=== PATIENT | male | born 1950 | race American Indian/Alaskan Native ===

== ENCOUNTER 2018-01-20 10:04 | Inpatient (IN) | payer MEDICARE ==
[2018-01-20 12:18] VITALS: BMI 33.6
--- NOTE | 2018-01-20 14:30 | CP.PCM.HP ---
History of Present Illness - History of Present Illness History of Present Illness: 67 year old male with past medical history of cervical degenerative disc disease , CAD s/p stent, anxiety, prostate cancer s/p tomotherapy (2006), uncontrolled hypertension, diabetes, was evaluated at [facility] for worsening progressive, right upper extremity weakness, bilateral upper extremity parathesias and gait imbalance.Cervical MRI (01/09) showed severe spinal stenosis and bilateral foraminal stenosis. Neurology and neurosugery were consulted and he underwent surgical decompression with discectomy with fusion C4, C5, C6.His numbness of hands improved, and strength of LE improved, and he is transferred now to acute rehab for continuation of physical therapy.Upon transfer feeling anxious , complains of pain to left shoulder and BP found to be elevated 180/101 with HR 77 with no chest pain, no SOB, no palpitatiosn, no MURRELL , dizziness blurry vision , nausea or vomiting. 12 lead EKG showed no acute St-T wave changes BIOCHEMIST was called for uncontrolled BP and hydralazine 20 mg IV push and labetalol 10 mg IV were given with end of BIOCHEMIST BP 153/87 Patient agrees to stay for BP in rehab Allergies: NKDA PMH: cervical degenerative disc disease, CAD s/p stent, anxiety, prostate cancer s/p tomotherapy (2006), uncontrolled hypertension, diabetes Medications; see med rec PSH: Tomotherapy (2006), multiple orthopedic surgeries to right knee (1969), s/ p discectomy and fusion C4 C5 C6 Family History: Mother- from CVA at age 83; Father- from black lung disease at age 52 Social History: Former smoker (approximately 1 year pack smoking history and quit just last week ); Previous alcohol abuse prior to 1989; Denies illicit drug abuse; 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 Bailey Present on Admission - Present on Admission Any Indicators Present on Admission: No Review of Systems - Review of Systems All systems: reviewed and no additional remarkable complaints except Past Patient History - Infectious Disease Hx of Infectious Diseases: None - Tetanus Immunizations Tetanus Immunization: Unknown - Past Medical History & Family History Past Medical History?: Yes - Past Social History Smoking Status: Light Smoker < 10 Cigarettes Daily Chewing Tobacco Use: No Cigar Use: No Alcohol: Social Drugs: Denies Home Situation {Lives}: With Family Domestic Violence: Negative - CARDIAC Hx Hypertension: Yes - PULMONARY Hx Respiratory Disorders: No - NEUROLOGICAL Hx Neurological Disorder: No Hx Paralysis: No - HEENT Hx HEENT Problems: No - RENAL Hx Chronic Kidney Disease: No - ENDOCRINE/METABOLIC Hx Diabetes Mellitus Type 2: Yes - HEMATOLOGICAL/ONCOLOGICAL Hx Blood Transfusions: No Hx Blood Transfusion Reaction: No - INTEGUMENTARY Hx Dermatological Problems: No - MUSCULOSKELETAL/RHEUMATOLOGICAL Hx Musculoskeletal Disorders: Yes - GENITOURINARY/GYNECOLOGICAL Hx Prostate Cancer: Yes - PSYCHIATRIC Hx Anxiety: Yes Hx Substance Use: No - SURGICAL HISTORY Hx Coronary Stent: Yes Hx Orthopedic Surgery: Yes - ANESTHESIA Hx Anesthesia Reactions: No Hx Malignant Hyperthermia: No Meds Allergies/Adverse Reactions: Allergies Allergy/AdvReac Type Severity Reaction Status Date / Time No Known Allergies Allergy Verified 01/20/18 11:46 Physical Exam - Constitutional Appears: Non-toxic Additional comments: anxious - Head Exam Head Exam: ATRAUMATIC, NORMAL INSPECTION, NORMOCEPHALIC - Eye Exam Eye Exam: EOMI, PERRL Additional comments: soft collar in place - ENT Exam ENT Exam: Mucous Membranes Moist, Normal Exam - Neck Exam Neck exam: Positive for: Full Rom, Normal Inspection - Respiratory Exam Respiratory Exam: Clear to Auscultation Bilateral, NORMAL BREATHING PATTERN. absent: Rales, Rhonchi, Wheezes - Cardiovascular Exam Cardiovascular Exam: REGULAR RHYTHM, RRR, +S1, +S2. absent: JVD - GI/Abdominal Exam GI & Abdominal Exam: Normal Bowel Sounds, Soft. absent: Distended, Guarding, Rebound, Tenderness - Rectal Exam Rectal Exam: Deferred - Extremities Exam Extremities exam: Positive for: normal capillary refill, normal inspection, pedal pulses present. Negative for: calf tenderness, pedal edema - Back Exam Back exam: NORMAL INSPECTION - Neurological Exam Neurological exam: Alert, CN II-XII Intact, Oriented x3, Reflexes Normal - Psychiatric Exam Psychiatric exam: Anxious, Normal Affect - Skin Skin Exam: Dry, Normal Color, Warm Assessment & Plan - Assessment and Plan (Free Text) Assessment: 67 year old male with past medical history of cervical degenerative disc disease , CAD s/p stent, anxiety, prostate cancer s/p tomotherapy (2006), uncontrolled hypertension, diabetes, was evaluated at [facility] for worsening progressive, right upper extremity weakness, bilateral upper extremity parathesias and gait imbalance.Cervical MRI (01/09) showed severe spinal stenosis and bilateral foraminal stenosis. Neurology and neurosugery were consulted and he underwent surgical decompression with discectomy with fusion C4, C5, C6 Now transferred to acute rehab for PT. 1. Cervical Radiculopathy with associated RUE Weakness due to cervical stenosis s/p discectomy with fusion C4,5,6 (01/15 ) Will admit to acute rehab for PT/OT physiatry consult with Dr. Morales pain management . Call pain anesthesia consult 2. Uncontrolled BP tight BP control in setting of aneurysms :7 x 6.1mm fusioform aneursym at the basilar tip. 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 CAD s/p PTCA Continue Lipitor aspirin on hold for surgery Heart Healthy Diet 6. Chronic NIDDM2, controlled, A1C 6.5 Hold home Metformin SSI-Low and Accuchecks ACHS Moderate Carbohydrate Consistency Diet 7. History of Chronic lower back pack Continue Flexeril, gabapentin, pain management pain consult 8. Anxiety on Xanax 9. Hx Prostate Cancer with Urinary Retention 10. Constipation continue home amitiza 11.GI/ DVT Prophylaxis Protonix,lovenox
--- NOTE | 2018-01-20 14:41 | PCM.OPOC ---
Physiatry Overall Plan of Care - Overall Plan of Care Estimated Length of Stay in Weeks: 3 Rehab Impairment: Mobility, Gait, Balance, Coordination Etiologic Diagnosis: Other Rehab/Medical Prognosis: Fair - Anticipated Interventions Physical Therapy:: Yes Occupational Therapy:: Yes Recreational Therapy:: Yes - Therapy Goals Bed Mobility: Independent Ambulation: Supervision Functional Positional Changes:: Independent - Functional Outcomes Functional Outcomes: fair - Discharge Plan Identification of Barriers to Discharge: Home Situation Discharge Destination: Home
[2018-01-20] MEDS ORDERED: HYDROmorphone 0.5 mg/0.5 ml ISec IVP STA (15:49)
[2018-01-20] MEDS ORDERED: Labetalol 5 mg/ml Inj 20ML IVP ONE (16:15)
--- NOTE | 2018-01-20 17:37 | PCM.RRT ---
MARINE OILER Nurse Assessment - Situation MARINE OILER Reason for Call: Hypertension - Ventilator Settings Ventilator Respiratory Rate Settin Ventilator Tidal Volume Settin I.Reason for MARINE OILER - A) Acute Change in Patient: Subjective: MARINE OILER Call Time: 15:40 MARINE OILER Arrival Time: 15:41 MARINE OILER Location: Rehab unit [facility] S: A MARINE OILER was called by RN on a 67 y/o male due to a very elevated BP measurement. Pt states feeling so bad, his neck pain and upper back pain is more than 10/10 intensity. O: --Vital Signs: BP 200/104, HR 125. --Physical Exam: > GEN: Pt on bed, in very much discomfort, awake, alert and oriented. Pt is responsive to verbal and tactile stimuli. > HEENT: non-tender, atraumatic, EOMI, dry mucous membranes. > Neck: in a immobilizer. > CV: S1 and S2 present, systolic murmur. > Lungs: CTAB. > ABD: soft, +BS, non-tender, mild distended, no rebound tenderness, no rigidity. > EXT: No edema, cyanosis or tenderness. MARINE OILER Interventions: --Repeated BP 214/118 --IV access was obtained. --Hydralazine 20mg IV administered once. --Dilauid 1mg IV administered once. --EKG performed, no ST-T wave changes observed. Preliminary no difference when compared with past EKG. --Pt asked for urinating. Pt urinated ~700mL. --Repeated vital signs: BP 227/116, HR 103, Sat O2 99%. --Labetalol 10mg IV once administered. --Pt reported pain was better. Repeated VS: 153/95, HR 92, Sat O2 100%, RR 12. A/P 67 y/o M with a PMHx of cervical degenerative disc disease, CAD s/p stent, anxiety, prostate cancer s/p tomotherapy (2006), uncontrolled hypertension, and diabetes admitted for rehabilitation foe his chronic aggravating deconditioning , had a acute hypertensive episode. --Stable for now. --Monitor VS and modify pharmacotherapy accordingly. MARINE OILER End Time: 16:20 MARINE OILER Leader: Dr Foster. MARINE OILER Members, residents: Dr Friedman PGY-1, Dr Michelle PGY-1, Dr Cárdenas PGY-3.
[2018-01-20] MEDS ORDERED: HYDROmorphone 0.5 mg/0.5 ml ISec IVP PRN (18:05)
[2018-01-20] MEDS ORDERED: oxyCODONE 5 mg Immediate Release Tab PO PRN (18:05)
[2018-01-20] MEDS ORDERED: HYDRALAZINE HCL 100 MG PO SCH (22:00)
[2018-01-21] MEDS ORDERED: PREGABALIN 75 MG PO SCH (09:00)
--- NOTE | 2018-01-21 12:01 | CARD ---
APPROVED REPORT EKG Measurement Heart [id number] <Conclusion> Normal sinus rhythm artefact present
--- NOTE | 2018-01-22 08:39 | CON ---
PHYSIATRY CONSULTATION DATE: For Dr. Morales HISTORY OF PRESENT ILLNESS: The patient is a 67-year-old male status post cervical myelopathy with status post diskectomy C4-C5 and C5- anterior cervical fusion. PAST MEDICAL HISTORY: Hypertension, diabetes, cervical degenerative disk disease, coronary artery disease, also diplopia, and nicotine abuse. ALLERGIES: NO KNOWN ALLERGIES. SOCIAL HISTORY: No history of drinking or history of smoking. FAMILY HISTORY: Noncontributory. FUNCTIONAL STATUS: The patient lives alone in the multifamily house 15 steps to negotiate. The patient is admitted from [facility] where he had complained of history of intermittent gait difficulty and right arm weakness and left arm weakness as well. MEDICATIONS: As per medical physician. REVIEW OF SYSTEMS: The patient with weakness of right upper and left upper extremity and also some weakness of the legs. PHYSICAL EXAMINATION: VITAL SIGNS: Stable. NECK: Supple. CHEST: Symmetrical. HEART: Sounds S1 and S2. ABDOMEN: Abdominal area is benign. EXTREMITIES: No clubbing, cyanosis, or edema. Both upper extremities, tone is normal. Range of motion is limited both shoulders. Both lower extremities, tone is normal and range of motion is functional. Muscle strength is fair. Sensation to pinprick, light touch decreased in both lower extremities, slightly decreased both legs. Deep tendon reflexes 2+ bilaterally. Mild swelling of the legs. No acute calf tenderness. Other systems are negative. IMPRESSION: Cervical myelopathy, status post anterior cervical diskectomy C4-C5 and C5-C7 for history of cervical myelopathy, hypertension, degenerative disk disease, coronary artery disease, anxiety, prostate cancer, chemotherapy, and nicotine abuse. PLAN: Physical therapy, occupational therapy, recreational therapy, and speech just for cognitive. Plan for discharge home. Estimated length of stay for this patient is 3 weeks. Goals for the patient to be independent bed mobility, independent to supervision functional positional changes, independent to supervision for simple transfers, supervision and contact guard for complex transfers, independent to supervision for ambulation with assistive devices, and supervision to contact guard for elevations. The patient also on IV pain meds, further ask Anesthesiology for further evaluation regarding the pain medications at present, the patient for acute rehab, and therapy orders written. Bernard Mcknight MD [facility] # [id number]
[2018-01-22] MEDS: Albuterol-Ipratrop 3 mg / 0.5 (3 ml) UD IH SCH ×5 (20:43→21:06)
[2018-01-22] MEDS: Enoxaparin 40 mg Syringe SC SCH ×2 (20:52→21:09)
[2018-01-22] MEDS: Pantoprazole 40 mg EC Tab PO SCH ×2 (20:57→21:10)
[2018-01-22] MEDS ORDERED: HYDROmorphone 0.5 mg/0.5 ml ISec IVP PRN (23:14)
[2018-01-23] MEDS: Albuterol-Ipratrop 3 mg / 0.5 (3 ml) UD IH SCH ×5 (01:06→21:11)
[2018-01-23] MEDS: Pantoprazole 40 mg EC Tab PO SCH (06:27)
[2018-01-23] MEDS: Insulin Lispro (humaLOG) 100 Units/ml Inj SC SCH ×4 (06:33→21:30)
[2018-01-23] MEDS: Enoxaparin 40 mg Syringe SC SCH (09:13)
--- NOTE | 2018-01-23 09:44 | CP.PCM.PN ---
Subjective - Date & Time of Evaluation Date of Evaluation: 01/22/18 Time of Evaluation: 21:00 - Subjective Subjective: patient with no acute neck or back pain, mild discomfort Objective - Vital Signs/Intake and Output Vital Signs (last 24 hours): Temp Pulse Resp BP Pulse Ox 98.1 F 70 20 142/88 99 01/23/18 08:00 01/23/18 09:16 01/23/18 08:00 01/23/18 09:16 01/23/18 08:00 - Medications Medications: Current Medications Acetaminophen (Tylenol 325mg Tab) 650 mg PO Q6 PRN PRN Reason: Fever >100.4 F Albuterol/Ipratropium (Duoneb 3 Mg/0.5 Mg (3 Ml) Ud) 3 ml IH RQ6 [facility] Last Admin: 01/23/18 01:06 Dose: Not Given Atorvastatin Calcium (Lipitor) 10 mg PO HS [facility] Last Admin: 01/22/18 21:48 Dose: 10 mg Clonidine HCl (Catapres) 0.3 mg PO Q8 [facility] Last Admin: 01/23/18 06:27 Dose: 0.3 mg Cyclobenzaprine HCl (Flexeril) 10 mg PO TID PRN PRN Reason: Pain Docusate Sodium (Colace) 100 mg PO BID [facility] Last Admin: 01/23/18 09:16 Dose: 100 mg Enoxaparin Sodium (Lovenox) 40 mg SC DAILY [facility] PRN Reason: Protocol Last Admin: 01/23/18 09:13 Dose: 40 mg Furosemide (Lasix) 40 mg PO DAILY [facility] Last Admin: 01/23/18 09:15 Dose: 40 mg Gabapentin (Neurontin) 300 mg PO Q8 [facility] Last Admin: 01/23/18 06:27 Dose: 300 mg Home Med (Lubiprostone [Amitiza]) 24 mcg PO BID [facility] Hydralazine HCl (Apresoline) 100 mg PO Q8 [facility] Last Admin: 01/23/18 06:26 Dose: 100 mg Hydromorphone HCl (Dilaudid) 0.5 mg IVP Q4 PRN PRN Reason: Pain, severe (8-10) Last Admin: 01/23/18 00:55 Dose: 0.5 mg Insulin Human Lispro (Humalog) 0 units SC ACHS [facility] PRN Reason: Protocol Last Admin: 01/23/18 06:33 Dose: Not Given Labetalol HCl (Trandate) 100 mg PO BID [facility] Last Admin: 01/23/18 09:17 Dose: 100 mg Losartan Potassium (Cozaar) 100 mg PO DAILY [facility] Last Admin: 01/23/18 09:16 Dose: 100 mg Metformin HCl (Glucophage) 500 mg PO TID [facility] Last Admin: 01/23/18 09:14 Dose: 500 mg Nicotine (Nicoderm Cq) 1 patch TD DAILY [facility] Last Admin: 01/23/18 09:11 Dose: 1 patch Oxycodone HCl (Oxycodone Immediate Release Tab) 5 mg PO Q6H PRN PRN Reason: Pain, moderate (4-7) Pantoprazole Sodium (Protonix Ec Tab) 40 mg PO 0600 [facility] Last Admin: 01/23/18 06:27 Dose: 40 mg Pregabalin (Lyrica) 75 mg PO BID [facility] Last Admin: 01/23/18 09:19 Dose: 75 mg - Head Exam Additional comments: cervical collar status post surgery - Eye Exam Eye Exam: EOMI, Normal appearance Pupil Exam: NORMAL ACCOMODATION, PERRL - ENT Exam ENT Exam: Mucous Membranes Moist, Normal Exam - Neck Exam Neck Exam: Full ROM, Normal Inspection - Respiratory Exam Respiratory Exam: Clear to Ausculation Bilateral, NORMAL BREATHING PATTERN - Cardiovascular Exam Cardiovascular Exam: REGULAR RHYTHM - GI/Abdominal Exam GI & Abdominal Exam: Soft, Normal Bowel Sounds - Rectal Exam Rectal Exam: NORMAL INSPECTION - Exam External exam: NORMAL EXTERNAL EXAM - Back Exam Back Exam: NORMAL INSPECTION - Neurological Exam Neurological Exam: Alert Neuro motor strength exam: Left Upper Extremity: 3, Right Upper Extremity: 3, Left Lower Extremity: 4, Right Lower Extremity: 4 - Psychiatric Exam Psychiatric exam: Normal Affect, Normal Mood Assessment and Plan (1) Ambulatory dysfunction Assessment & Plan: status post cervical myelopathy, status post diskectomy plan for physical, occupational, rec and speech eval. Monitor blood pressure and skin Status: Acute (2) Ataxia Status: Acute (3) Compression of spinal cord Status: Acute (4) DVT prophylaxis Status: Acute (5) Elevated blood pressure reading Status: Acute (6) Hypertensive urgency Status: Acute (7) Hypokalemia Status: Acute (8) Numbness and tingling Status: Acute
[2018-01-23 10:21] LABS: HEMOGLOBIN 12.3 g/dL (12.0-18.0); MEAN CELL VOLUME 77.7 fl (80.0-94.0); MEAN CORPUSCULAR HEMOGLOBIN 25.5 pg (27.0-31.0); MEAN CORPUSCULAR HGB CONC 32.9 g/dL (33.0-37.0); RBC 4.84 Mil/uL (4.40-5.90); RED CELL DISTRIBUTION WIDTH 17.7 % (11.5-14.5)
[2018-01-23 10:44] LABS: BLOOD UREA NITROGEN 14 mg/dl (9-20); CALCIUM 9.3 mg/dL (8.4-10.2); GFR AFRICAN-AMERICAN > 60; GFR NON-AFRICAN AMERICAN > 60
[2018-01-23] MEDS ORDERED: Potassium Chloride 20 mEq ER Tab PO ONE (17:49)
[2018-01-23] MEDS ORDERED: Albuterol-Ipratrop 3 mg / 0.5 (3 ml) UD ONE (19:56)
--- NOTE | 2018-01-23 22:32 | CP.PCM.CON ---
History of Present Illness - History of Present Illness History of Present Illness: PT WITH LABILE, UNCONTROLLED HYPERTENSION WITH RECENT HYPERTENSIVE URGENCY. MEDS WERE ADJUST INPT. TRANSFERED FOR REHAB. BP CONTINUES TO BE LABILE, HOWEVER IMPROVED SIGNIFICANTLY. NO CP, PALP, LH, DIZZINESS, MURRELL, N/V/D/C. ALL OTHER SYSTEMS NEG EXCEPT MSK PT HAVING NECK PAIN AT SURGICAL SITE. Review of Systems - Constitutional Constitutional: As Per HPI. absent: Anorexia, Chills, Daytime Sleepiness, Excessive Sweating, Fatigue, Fever, Frequent Falls, Headache, Increased Appetite , Lethargy, Malaise, Night Sweats, Snoring, Sleep Apnea, Weight Gain, Weight Loss, Weakness, Other - EENT Eyes: As Per HPI. absent: Blind Spots, Blurred Vision, Change in Vision, Decreased Night Vision, Diplopia, Discharge, Dry Eye, Exophthalmos, Floaters, Irritation, Itchy Eyes, Loss of Peripheral Vision, Pain, Photophobia, Requires Corrective Lenses, Sees Flashes, Spots in Vision, Tunnel Vision, Other Visual Disturbances, Loss of Vision, Other Ears: As Per HPI. absent: Decreased Hearing, Ear Discharge, Ear Pain, Tinnitus , Abnormal Hearing, Disequilibrium, Dizziness, Other Nose/Mouth/Throat: As Per HPI. absent: Epistaxis, Nasal Congestion, Nasal Discharge, Nasal Obstruction, Nasal Trauma, Nose Pain, Post Nasal Drip, Sinus Pain, Sinus Pressure, Bleeding Gums, Change in Voice, Dental Pain, Dry Mouth, Dysphagia, Halitosis, Hoarsness, Lip Swelling, Mouth Lesions, Mouth Pain, Odynophagia, Sore Throat, Throat Swelling, Tongue Swelling, Facial Pain, Neck Pain, Neck Mass, Other - Cardiovascular Cardiovascular: As Per HPI. absent: Acrocyanosis, Chest Pain, Chest Pain at Rest, Chest Pain with Activity, Claudication, Diaphoresis, Dyspnea, Dyspnea on Exertion, Edema, Irregular Heart Rhythm, Pain Radiating to Arm/Neck/Jaw, Leg Edema, Leg Ulcers, Lightheadedness, Orthopnea, Palpitations, Paroxysmal Nocturnal Dyspnea, Pedal Edema, Radiating Pain, Rapid Heart Rate, Slow Heart Rate, Syncope, Other - Respiratory Respiratory: As Per HPI. absent: Cough, Dyspnea, Hemoptysis, Dyspnea on Exertion, Wheezing, Snoring, Stridor, Pain on Inspiration, Chest Congestion, Excessive Mucous Production, Change in Mucous Color, Pain with Coughing, Other - Gastrointestinal Gastrointestinal: As Per HPI. absent: Abdominal Pain, Belching, Bloating, Change in Bowel Habits, Change in Stool Character, Coffee Ground Emesis, Constipation, Cramping, Diarrhea, Dyspepsia, Dysphagia, Early Satiety, Excessive Flatus, Fecal Incontinence, Heartburn, Hematemesis, Hematochezia, Loose Stools, Melena, Nausea, Odynophagia, Temesmus, Vomiting, Other - Genitourinary Genitourinary: As Per HPI. absent: Change in Urinary Stream, Difficulty Urinating, Dysuria, Flank Pain, Hematuria, Pyuria, Nocturia, Urinary Incontinence, Urinary Frequency, Urinary Hesitance, Urinary Urgency, Voiding Freq/Small Amts, Freq UTI, Hx Renal/Bladder Calculi, Hx /Renal Surgery, Bladder Distension, Other - Reproductive: Male Reproductive:Male: As Per HPI - Musculoskeletal Musculoskeletal: As Per HPI, Neck Pain. absent: Abnormal Gait, Arthralgias, Atrophy, Back Pain, Deformity, Joint Swelling, Limited Range of Motion, Loss of Height, Muscle Cramps, Muscle Weakness, Myalgias, Numbness, Radiating Pain into Limb, Stiffness, Tingling, Other - Integumentary Integumentary: As Per HPI. absent: Acne, Alopecia, Bleeding Lesions, Change in Hair, Change in Nails, Change in Pigmentation, Changing Lesions, Dry Skin, Erythema, Furuncle, Hirsutism, Lesions, New Lesions, Non-Healing Lesions, Photosensitivity, Pruritus, Rash, Skin Pain, Skin Ulcer, Sores, Striae, Swelling , Unusual Bruising, Wounds, Jaundice, Other - Neurological Neurological: As Per HPI. absent: Abnormal Gait, Abnormal Hearing, Abnormal Movements, Abnormal Speech, Behavioral Changes, Burning Sensations, Confusion, Convulsions, Disequilibrium, Dizziness, Numbness, Focal Weakness, Frequent Falls , Headaches, Lack of Coordination, Loss of Vision, Memory Loss, Paresthesias, Radicular Pain, Restless Legs, Sensory Deficit, Syncope, Tingling, Tremor, Vertigo, Weakness, Other Visual Disturbances, Other - Psychiatric Psychiatric: As Per HPI. absent: Abnormal Sleep Pattern, Anhedonia, Anxiety, Auditory Hallucinations, Behavioral Changes, Change in Appetite, Change in Libido, Confusion, Depression, Difficulty Concentrating, Hallucinations, Homicidal Ideation, Hopelessness, Irritability, Memory Loss, Mood Swings, Panic Attacks, Paranoia, Suicidal Ideation, Visual Hallucinations, Tactile Hallucinations, Other - Endocrine Endocrine: As Per HPI. absent: Change in Body Appearance, Change in Libido, Cold Intolorance, Deepening of Voice, Excessive Sweating, Fatigue, Flushing, Heat Intolorance, Increase in Ring/Shoe/Hat Size, Palpitations, Polydipsia, Polyphagia, Polyuria, Other - Hematologic/Lymphatic Hematologic: As Per HPI. absent: Easy Bleeding, Easy Bruising, Lymphadenopathy , Other Past Patient History - Infectious Disease Hx of Infectious Diseases: None - Tetanus Immunizations Tetanus Immunization: Unknown - Past Medical History & Family History Past Medical History?: Yes - Past Social History Smoking Status: Light Smoker < 10 Cigarettes Daily Chewing Tobacco Use: No Cigar Use: No Alcohol: Social Drugs: Denies Home Situation {Lives}: With Family Domestic Violence: Negative - CARDIAC Hx Cardiac Disorders: Yes (CAD, PTCA) Hx Hypercholesterolemia: Yes Hx Hypertension: Yes - PULMONARY Hx Chronic Obstructive Pulmonary Disease (COPD): Yes Hx Pneumonia: Yes - NEUROLOGICAL HX Cerebrovascular Accident: Yes (as per MRI, PMH of TIA) - HEENT Hx HEENT Problems: No - RENAL Hx Chronic Kidney Disease: No - ENDOCRINE/METABOLIC Hx Diabetes Mellitus Type 2: Yes - HEMATOLOGICAL/ONCOLOGICAL Hx Blood Transfusions: No Hx Blood Transfusion Reaction: No - INTEGUMENTARY Hx Dermatological Problems: No - MUSCULOSKELETAL/RHEUMATOLOGICAL Hx Back Pain: Yes Hx Degenerative Joint Disease: Yes - GASTROINTESTINAL Hx Gastrointestinal Disorders: Yes Hx Constipation: Yes - GENITOURINARY/GYNECOLOGICAL Hx Prostate Cancer: Yes - PSYCHIATRIC Hx Anxiety: Yes Hx Substance Use: No - SURGICAL HISTORY Hx Coronary Stent: Yes Hx Orthopedic Surgery: Yes - ANESTHESIA Hx Anesthesia: Yes Has any member of the family had a problem w/ anesthesia?: No Meds Allergies/Adverse Reactions: Allergies Allergy/AdvReac Type Severity Reaction Status Date / Time No Known Allergies Allergy Verified 01/20/18 11:46 - Medications Medications: Current Medications Acetaminophen (Tylenol 325mg Tab) 650 mg PO Q6 PRN PRN Reason: Fever >100.4 F Albuterol/Ipratropium (Duoneb 3 Mg/0.5 Mg (3 Ml) Ud) 3 ml IH RQ6 [facility] Last Admin: 01/23/18 21:11 Dose: Not Given Atorvastatin Calcium (Lipitor) 10 mg PO HS [facility] Last Admin: 01/23/18 22:00 Dose: 10 mg Clonidine HCl (Catapres) 0.3 mg PO Q8 [facility] Last Admin: 01/23/18 21:59 Dose: 0.3 mg Cyclobenzaprine HCl (Flexeril) 10 mg PO TID PRN PRN Reason: Pain, Mild (1-3) Docusate Sodium (Colace) 100 mg PO BID [facility] Last Admin: 01/23/18 17:39 Dose: 100 mg Enoxaparin Sodium (Lovenox) 40 mg SC DAILY [facility] PRN Reason: Protocol Last Admin: 01/23/18 09:13 Dose: 40 mg Furosemide (Lasix) 40 mg PO DAILY [facility] Last Admin: 01/23/18 09:15 Dose: 40 mg Gabapentin (Neurontin) 300 mg PO Q8 [facility] Last Admin: 01/23/18 22:01 Dose: 300 mg Home Med (Lubiprostone [Amitiza]) 24 mcg PO BID [facility] Hydralazine HCl (Apresoline) 100 mg PO Q8 [facility] Last Admin: 01/23/18 22:00 Dose: 100 mg Hydromorphone HCl (Dilaudid) 0.5 mg IVP Q4 PRN PRN Reason: Pain, severe (8-10) Last Admin: 01/23/18 20:30 Dose: 0.5 mg Insulin Human Lispro (Humalog) 0 units SC ACHS [facility] PRN Reason: Protocol Last Admin: 01/23/18 21:30 Dose: Not Given Labetalol HCl (Trandate) 100 mg PO BID [facility] Last Admin: 01/23/18 17:36 Dose: 100 mg Losartan Potassium (Cozaar) 100 mg PO DAILY [facility] Last Admin: 01/23/18 09:16 Dose: 100 mg Metformin HCl (Glucophage) 500 mg PO TID [facility] Last Admin: 01/23/18 17:37 Dose: 500 mg Nicotine (Nicoderm Cq) 1 patch TD DAILY [facility] Last Admin: 01/23/18 09:11 Dose: 1 patch Oxycodone HCl (Oxycodone Immediate Release Tab) 5 mg PO Q6H PRN PRN Reason: Pain, moderate (4-7) Pantoprazole Sodium (Protonix Ec Tab) 40 mg PO 0600 [facility] Last Admin: 01/23/18 06:27 Dose: 40 mg Pregabalin (Lyrica) 75 mg PO BID [facility] Last Admin: 01/23/18 18:42 Dose: 75 mg Physical Exam - Constitutional Appears: Well - Head Exam Head Exam: ATRAUMATIC, NORMAL INSPECTION, NORMOCEPHALIC - Eye Exam Eye Exam: EOMI, Normal appearance, PERRL. absent: Conjunctival injection, Nystagmus, Periorbital swelling, Periorbital tenderness, Scleral icterus Pupil Exam: NORMAL ACCOMODATION, PERRL. absent: Fixed, Irregular, Miosis, Mydriatic, Unequal - ENT Exam ENT Exam: Mucous Membranes Moist, Normal Exam. absent: Mucous Membranes Dry, Normal External Ear Exam, Normal Oropharynx, TM's Normal Bilaterally - Neck Exam Neck exam: Positive for: Tenderness. Negative for: Full Rom, Lymphadenopathy, Meningismus, Normal Inspection, Thyromegaly - Respiratory Exam Respiratory Exam: Clear to Auscultation Bilateral, NORMAL BREATHING PATTERN. absent: Accessory Muscle Use, Chest Wall Tenderness, Decreased Breath Sounds, Prolonged Expiratory Phase, Rales, Rhonchi, Wheezes, Respiratory Distress, Stridor - Cardiovascular Exam Cardiovascular Exam: Bradycardia, +S1, +S2, Systolic Murmur. absent: Tachycardia, Clicks, Diastolic murmur, Gallop, Irregular Rhythm, REGULAR RHYTHM , JVD, RRR, Rubs, +S4 - GI/Abdominal Exam GI & Abdominal Exam: Normal Bowel Sounds, Soft. absent: Bruit, Diminished Bowel Sounds, Distended, Firm, Guarding, Hernia, Hyperactive Bowel Sounds, Hypoactive Bowel Sounds, Mass, Organomegaly, Pulsatile Mass, Rebound, Rigid, Tenderness - Rectal Exam Rectal Exam: Deferred - Extremities Exam Extremities exam: Positive for: normal inspection. Negative for: calf tenderness, full ROM, joint swelling, normal capillary refill, pedal edema, tenderness, pedal pulses present - Back Exam Back exam: NORMAL INSPECTION. absent: CVA tenderness (L), CVA tenderness (R), FULL ROM, muscle spasm, paraspinal tenderness, rash noted, tenderness, vertebral tenderness - Neurological Exam Neurological exam: Alert, CN II-XII Intact, Normal Gait, Oriented x3, Reflexes Normal - Psychiatric Exam Psychiatric exam: Normal Affect, Normal Mood - Skin Skin Exam: Dry, Intact, Normal Color, Warm Results - Vital Signs Recent Vital Signs: Last Vital Signs Temp 98.2 F 06/02/18 20:00 Pulse 55 L 01/23/18 22:00 Resp 20 01/23/18 20:00 BP 145/81 01/23/18 22:00 Pulse Ox 97 01/23/18 20:00 - Labs Result Diagrams: 01/29/18 06:45 01/29/18 06:45 Labs: Laboratory Results - last 24 hr 01/23/18 01/23/18 01/23/18 06:18 08:53 08:53 WBC 6.0 RBC 4.84 Hgb 12.3 Hct 37.6 MCV 77.7 L MCH 25.5 L MCHC 32.9 L RDW 17.7 H Plt Count 295 Sodium 138 Potassium 3.5 L Chloride 94 L Carbon Dioxide 30 Anion Gap 18 BUN 14 Creatinine 1.1 Est GFR ( Amer) > 60 Est GFR (Non-Af Amer) > 60 POC Glucose (mg/dL) 110 Random Glucose 137 H Calcium 9.3 01/23/18 01/23/18 11:41 16:23 WBC RBC Hgb Hct MCV MCH MCHC RDW Plt Count Sodium Potassium Chloride Carbon Dioxide Anion Gap BUN Creatinine Est GFR ( Amer) Est GFR (Non-Af Amer) POC Glucose (mg/dL) 101 113 H Random Glucose Calcium Assessment & Plan (1) Hypertensive urgency Status: Acute (2) Bradycardia, drug induced Status: Acute (3) S/P discectomy Status: Acute (4) Hypokalemia Status: Acute (5) DM2 (diabetes mellitus, type 2) Status: Chronic - Assessment and Plan (Free Text) Plan: PTS BP APPEARS STABLE TODAY ON CURRENT REGIMN. WILL CONT TO MONITOR AND ADJUST. STABLE FOR REHAB. NEEDS PAIN CONTROL TO LIMIT BP SPIKES.
[2018-01-24] MEDS: Albuterol-Ipratrop 3 mg / 0.5 (3 ml) UD IH SCH ×4 (01:00→19:15)
[2018-01-24] MEDS: Pantoprazole 40 mg EC Tab PO SCH (05:28)
[2018-01-24] MEDS: Insulin Lispro (humaLOG) 100 Units/ml Inj SC SCH ×4 (06:30→21:45)
[2018-01-24] MEDS: Enoxaparin 40 mg Syringe SC SCH (09:17)
--- NOTE | 2018-01-24 16:02 | CP.PCM.PN ---
Subjective - Date & Time of Evaluation Date of Evaluation: 01/23/18 Time of Evaluation: 14:00 - Subjective Subjective: no acute complaints noted Objective - Vital Signs/Intake and Output Vital Signs (last 24 hours): Temp Pulse Resp BP Pulse Ox 99.1 F 62 19 149/89 97 01/24/18 08:00 01/24/18 14:30 01/24/18 08:00 01/24/18 14:30 01/24/18 08:00 - Medications Medications: Current Medications Acetaminophen (Tylenol 325mg Tab) 650 mg PO Q6 PRN PRN Reason: Fever >100.4 F Albuterol/Ipratropium (Duoneb 3 Mg/0.5 Mg (3 Ml) Ud) 3 ml IH RQ6 [facility] Last Admin: 01/24/18 13:25 Dose: 3 ml Atorvastatin Calcium (Lipitor) 10 mg PO HS [facility] Last Admin: 01/23/18 22:00 Dose: 10 mg Clonidine HCl (Catapres) 0.3 mg PO Q8 [facility] Last Admin: 01/24/18 14:30 Dose: 0.3 mg Cyclobenzaprine HCl (Flexeril) 10 mg PO TID PRN PRN Reason: Pain, Mild (1-3) Docusate Sodium (Colace) 100 mg PO BID [facility] Last Admin: 01/24/18 09:21 Dose: 100 mg Enoxaparin Sodium (Lovenox) 40 mg SC DAILY [facility] PRN Reason: Protocol Last Admin: 01/24/18 09:17 Dose: 40 mg Furosemide (Lasix) 40 mg PO DAILY [facility] Last Admin: 01/24/18 09:20 Dose: 40 mg Gabapentin (Neurontin) 300 mg PO Q8 [facility] Last Admin: 01/24/18 14:30 Dose: 300 mg Home Med (Lubiprostone [Amitiza]) 24 mcg PO BID [facility] Last Admin: 01/24/18 10:49 Dose: Not Given Hydralazine HCl (Apresoline) 75 mg PO Q6H [facility] Last Admin: 01/24/18 12:29 Dose: 75 mg Hydromorphone HCl (Dilaudid) 0.5 mg IVP Q4 PRN PRN Reason: Pain, severe (8-10) Last Admin: 01/24/18 05:13 Dose: 0.5 mg Insulin Human Lispro (Humalog) 0 units SC ACHS [facility] PRN Reason: Protocol Last Admin: 01/24/18 12:29 Dose: Not Given Labetalol HCl (Trandate) 100 mg PO BID [facility] Last Admin: 01/24/18 09:19 Dose: 100 mg Losartan Potassium (Cozaar) 100 mg PO DAILY [facility] Last Admin: 01/24/18 09:21 Dose: 100 mg Metformin HCl (Glucophage) 500 mg PO TID [facility] Last Admin: 01/24/18 12:29 Dose: 500 mg Nicotine (Nicoderm Cq) 1 patch TD DAILY [facility] Last Admin: 01/24/18 09:29 Dose: Not Given Oxycodone HCl (Oxycodone Immediate Release Tab) 5 mg PO Q6H PRN PRN Reason: Pain, moderate (4-7) Pantoprazole Sodium (Protonix Ec Tab) 40 mg PO 0600 [facility] Last Admin: 01/24/18 05:28 Dose: 40 mg Pregabalin (Lyrica) 75 mg PO BID [facility] Last Admin: 01/24/18 09:25 Dose: 75 mg - Labs Labs: 01/23/18 08:53 01/23/18 08:53 - Head Exam Head Exam: ATRAUMATIC, NORMAL INSPECTION, NORMOCEPHALIC - Eye Exam Eye Exam: EOMI, Normal appearance, PERRL Pupil Exam: NORMAL ACCOMODATION, PERRL - ENT Exam ENT Exam: Mucous Membranes Moist, Normal Exam - Neck Exam Additional comments: cervical collar - Respiratory Exam Respiratory Exam: Clear to Ausculation Bilateral, NORMAL BREATHING PATTERN - Cardiovascular Exam Cardiovascular Exam: REGULAR RHYTHM - GI/Abdominal Exam GI & Abdominal Exam: Soft, Normal Bowel Sounds - Rectal Exam Rectal Exam: NORMAL INSPECTION - Exam External exam: NORMAL EXTERNAL EXAM - Extremities Exam Extremities Exam: Normal Inspection Additional comments: upper extremities limited range of motion - Back Exam Back Exam: NORMAL INSPECTION - Neurological Exam Neurological Exam: Alert, Awake Neuro motor strength exam: Left Upper Extremity: 3, Right Upper Extremity: 3 - Psychiatric Exam Psychiatric exam: Normal Affect - Skin Skin Exam: Normal Color Assessment and Plan (1) Ambulatory dysfunction Assessment & Plan: plan for physical, occupational, speech and rec therapy range of motion, strengthening, transfers and gait training. Director Of Assessing to follow up regarding medical management of BP along with PMD Dr Morales to follow up patient ( Just covering for Dr strell) Status: Acute (2) Ataxia Status: Acute (3) Compression of spinal cord Status: Acute (4) DVT prophylaxis Status: Acute (5) Elevated blood pressure reading Status: Acute (6) Hypertensive urgency Status: Acute (7) Hypokalemia Status: Acute (8) Numbness and tingling Status: Acute
[2018-01-25] MEDS: Albuterol-Ipratrop 3 mg / 0.5 (3 ml) UD IH SCH ×4 (01:06→19:16)
[2018-01-25] MEDS: Pantoprazole 40 mg EC Tab PO SCH (06:39)
[2018-01-25] MEDS: Insulin Lispro (humaLOG) 100 Units/ml Inj SC SCH ×4 (06:43→21:39)
[2018-01-25] MEDS: Enoxaparin 40 mg Syringe SC SCH (08:05)
--- NOTE | 2018-01-25 12:20 | CP.PCM.PN ---
Subjective - Date & Time of Evaluation Date of Evaluation: 01/25/18 Time of Evaluation: 10:30 - Subjective Subjective: Patient seen and examined. Sitting in chair in NAD. Feeling better , participating with PT. hemodynamically stable, afebriole. BP better controlled. agrees to start Zoloft . Objective - Vital Signs/Intake and Output Vital Signs (last 24 hours): Temp Pulse Resp BP Pulse Ox 97.9 F 60 19 138/83 95 01/25/18 07:48 01/25/18 10:08 01/25/18 10:08 01/25/18 10:08 01/25/18 07:48 - Medications Medications: Current Medications Acetaminophen (Tylenol 325mg Tab) 650 mg PO Q6 PRN PRN Reason: Fever >100.4 F Albuterol/Ipratropium (Duoneb 3 Mg/0.5 Mg (3 Ml) Ud) 3 ml IH RQ6 [facility]PL[facility] BY [facility] Last Admin: 01/25/18 07:50 Dose: 3 ml Atorvastatin Calcium (Lipitor) 10 mg PO HS [facility]PL[facility]ED BY [facility] Last Admin: 01/24/18 21:49 Dose: 10 mg Clonidine HCl (Catapres) 0.3 mg PO Q8 REPLACED BY [facility] Last Admin: 01/25/18 06:39 Dose: 0.3 mg Cyclobenzaprine HCl (Flexeril) 10 mg PO TID PRN PRN Reason: Pain, Mild (1-3) Docusate Sodium (Colace) 100 mg PO BID [facility]PL[facility]ED BY [facility] Last Admin: 01/25/18 08:02 Dose: 100 mg Enoxaparin Sodium (Lovenox) 40 mg SC DAILY [facility]PL[facility] BY [facility] PRN Reason: Protocol Last Admin: 01/25/18 08:05 Dose: 40 mg Furosemide (Lasix) 40 mg PO DAILY [facility] BY [facility] Last Admin: 01/25/18 08:05 Dose: 40 mg Gabapentin (Neurontin) 300 mg PO Q8 [facility] BY [facility] Last Admin: 01/25/18 06:39 Dose: 300 mg Home Med (Lubiprostone [Amitiza]) 24 mcg PO BID [facility]PL[facility]ED BY [facility] Last Admin: 01/24/18 10:49 Dose: Not Given Hydralazine HCl (Apresoline) 75 mg PO Q6H [facility]PL[facility] BY [facility] Last Admin: 01/25/18 07:01 Dose: 75 mg Hydromorphone HCl (Dilaudid) 0.5 mg IVP Q4 PRN PRN Reason: Pain, severe (8-10) Last Admin: 01/25/18 02:34 Dose: 0.5 mg Insulin Human Lispro (Humalog) 0 units SC ACHS REPLACED BY [facility] PRN Reason: Protocol Last Admin: 01/25/18 11:57 Dose: Not Given Labetalol HCl (Trandate) 100 mg PO BID REPLACED BY [facility] Last Admin: 01/25/18 09:58 Dose: 100 mg Losartan Potassium (Cozaar) 100 mg PO DAILY [facility]PL[facility]ED BY [facility] Last Admin: 01/25/18 08:02 Dose: 100 mg Metformin HCl (Glucophage) 500 mg PO TID REPLACED BY [facility] Last Admin: 01/25/18 08:04 Dose: 500 mg Nicotine (Nicoderm Cq) 1 patch TD DAILY [facility]PL[facility]ED BY [facility] Last Admin: 01/25/18 08:00 Dose: Not Given Pantoprazole Sodium (Protonix Ec Tab) 40 mg PO 0600 REPLACED BY [facility] Last Admin: 01/25/18 06:39 Dose: 40 mg - Labs Labs: 01/23/18 08:53 01/23/18 08:53 - Constitutional Appears: Non-toxic, No Acute Distress - Head Exam Head Exam: ATRAUMATIC, NORMAL INSPECTION, NORMOCEPHALIC - Eye Exam Eye Exam: EOMI, Normal appearance, PERRL Pupil Exam: NORMAL ACCOMODATION - ENT Exam ENT Exam: Mucous Membranes Moist, Normal Exam - Neck Exam Neck Exam: Full ROM, Normal Inspection - Respiratory Exam Respiratory Exam: Clear to Ausculation Bilateral, NORMAL BREATHING PATTERN. absent: Rales, Wheezes, Respiratory Distress - Cardiovascular Exam Cardiovascular Exam: REGULAR RHYTHM, RRR, +S1, +S2. absent: JVD - GI/Abdominal Exam GI & Abdominal Exam: Soft, Normal Bowel Sounds. absent: Distended, Guarding, Tenderness, Rebound - Rectal Exam Rectal Exam: Deferred - Extremities Exam Extremities Exam: Normal Capillary Refill. absent: Calf Tenderness - Back Exam Back Exam: NORMAL INSPECTION - Neurological Exam Neurological Exam: Alert, Awake, CN II-XII Intact - Psychiatric Exam Psychiatric exam: Normal Affect - Skin Skin Exam: Dry, Normal Color, Warm Assessment and Plan - Assessment and Plan (Free Text) Assessment: 67 y/o male with PMHx significant for Cervical disc degenerative disease s/p recent C4C5C6 discectomy with fusion 01/15 ,CAD/Stents, DM2, poorly controlled HTN, prior treatment for prostate cancer,anxiety , was transferred from [facility] to acute rehab for physical therapy.He was noted to have accelerated hypertension on admission so was transferred to telemetry for observation and BP management . At present BP is better controlled and patient is back in acute rehab participating with PT . 1. Cervical Radiculopathy with associated RUE Weakness due to cervical stenosis s/p discectomy with fusion C4,5,6 (01/15 ) continue PT in acute rehab pain management. Will d/c oxycodone at patient's request physiatry on consult 2. 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 CAD s/p PTCA Continue Lipitor , ASA Heart Healthy Diet 6. Chronic NIDDM2, controlled, A1C 6.5 on Metformin SSI-Low and Accuchecks ACHS Moderate Carbohydrate Consistency Diet 7. History of Chronic lower back pack Continue gabapentin, pain management does not want Lyrica and oxycodone. Will discontinue both Start Ultram PRN 8. Anxiety Psych consulted and recommended starting Zoloft or Cymbalta but patient initially refused . Discussed with patient today and agrees to start Zoloft d/c Xanax 9. Hx Prostate Cancer with Urinary Retention 10. Constipation continue home amitiza Colace 11. Smoker will offer nicotine patch 12.GI/ DVT Prophylaxis Protonix,lovenox
[2018-01-26] MEDS: Albuterol-Ipratrop 3 mg / 0.5 (3 ml) UD IH SCH ×4 (01:00→19:21)
[2018-01-26] MEDS: Pantoprazole 40 mg EC Tab PO SCH (06:26)
[2018-01-26] MEDS: Insulin Lispro (humaLOG) 100 Units/ml Inj SC SCH ×4 (06:30→21:29)
[2018-01-26 06:46] LABS: HEMOGLOBIN 11.6 g/dL (12.0-18.0); MEAN CELL VOLUME 77.3 fl (80.0-94.0); MEAN CORPUSCULAR HEMOGLOBIN 25.6 pg (27.0-31.0); MEAN CORPUSCULAR HGB CONC 33.1 g/dL (33.0-37.0); RBC 4.55 Mil/uL (4.40-5.90); WHITE BLOOD COUNT 6.7 K/uL (4.8-10.8)
[2018-01-26 06:55] LABS: BLOOD UREA NITROGEN 12 mg/dl (9-20); CALCIUM 9.2 mg/dL (8.4-10.2); GFR AFRICAN-AMERICAN > 60; GFR NON-AFRICAN AMERICAN > 60
[2018-01-26] MEDS: Enoxaparin 40 mg Syringe SC SCH (09:50)
--- NOTE | 2018-01-26 12:08 | CP.PCM.PN ---
Subjective - Date & Time of Evaluation Date of Evaluation: 01/26/18 Time of Evaluation: 12:05 - Subjective Subjective: another episode of hypertensive urgency this morning with systolic BP in 200s this AM patient will require stricter BP control currently participating in PT, pt concerned about BP control, reassured we will be further tailoring meds to his needs also concerned about need of Dilaudid, discussed using scheduled tylenol, increasing gabapentin for neuropathic pain which he describes as sharp and burning, radiating down from his neck to shoulders currently HD stable and in no acute distress Objective - Vital Signs/Intake and Output Vital Signs (last 24 hours): Temp Pulse Resp BP Pulse Ox 97.7 F 51 L 20 149/78 99 01/26/18 08:57 01/26/18 09:47 01/26/18 08:57 01/26/18 09:47 01/26/18 07:30 - Medications Medications: Current Medications Acetaminophen (Tylenol 325mg Tab) 650 mg PO Q6 PRN PRN Reason: Fever >100.4 F Acetaminophen (Tylenol 325mg Tab) 975 mg PO Q8 [facility] Albuterol/Ipratropium (Duoneb 3 Mg/0.5 Mg (3 Ml) Ud) 3 ml IH RQ6 [facility] Last Admin: 01/26/18 07:27 Dose: 3 ml Alprazolam (Xanax) 0.5 mg PO Q6 PRN PRN Reason: Anxiety Atorvastatin Calcium (Lipitor) 10 mg PO HS [facility] Last Admin: 01/25/18 21:42 Dose: 10 mg Clonidine HCl (Catapres) 0.3 mg PO Q8 [facility] Last Admin: 01/26/18 07:17 Dose: 0.3 mg Cyclobenzaprine HCl (Flexeril) 10 mg PO TID PRN PRN Reason: Pain, Mild (1-3) Last Admin: 01/26/18 09:50 Dose: 10 mg Docusate Sodium (Colace) 100 mg PO BID [facility] Last Admin: 01/26/18 09:51 Dose: 100 mg Enoxaparin Sodium (Lovenox) 40 mg SC DAILY [facility] PRN Reason: Protocol Last Admin: 01/26/18 09:50 Dose: 40 mg Furosemide (Lasix) 40 mg PO DAILY [facility] Last Admin: 01/26/18 08:03 Dose: 40 mg Gabapentin (Neurontin) 600 mg PO Q8 [facility] Home Med (Lubiprostone [Amitiza]) 24 mcg PO BID [facility] Last Admin: 01/24/18 10:49 Dose: Not Given Hydralazine HCl (Apresoline) 75 mg PO Q6H [facility] Last Admin: 01/26/18 07:16 Dose: 75 mg Hydromorphone HCl (Dilaudid) 0.5 mg IVP Q4 PRN PRN Reason: Pain, severe (8-10) Last Admin: 01/26/18 11:00 Dose: 0.5 mg Insulin Human Lispro (Humalog) 0 units SC ACHS [facility] PRN Reason: Protocol Last Admin: 01/26/18 11:29 Dose: Not Given Labetalol HCl (Trandate) 100 mg PO Q8 [facility] Losartan Potassium (Cozaar) 100 mg PO DAILY [facility] Last Admin: 01/26/18 08:03 Dose: 100 mg Metformin HCl (Glucophage) 500 mg PO TID [facility] Last Admin: 01/26/18 09:51 Dose: 500 mg Nicotine (Nicoderm Cq) 1 patch TD DAILY [facility] Last Admin: 01/26/18 09:51 Dose: 1 patch Pantoprazole Sodium (Protonix Ec Tab) 40 mg PO 0600 [facility] Last Admin: 01/26/18 06:26 Dose: 40 mg Sertraline HCl (Zoloft) 50 mg PO HS [facility] Last Admin: 01/25/18 21:42 Dose: 50 mg Tramadol HCl (Ultram) 100 mg PO Q6 PRN PRN Reason: Pain, severe (8-10) Last Admin: 01/25/18 20:42 Dose: 100 mg - Labs Labs: 01/26/18 06:30 01/26/18 06:30 - Constitutional Appears: Non-toxic, No Acute Distress - Head Exam Head Exam: ATRAUMATIC, NORMOCEPHALIC - Eye Exam Eye Exam: EOMI, Normal appearance, PERRL Pupil Exam: NORMAL ACCOMODATION, PERRL - ENT Exam ENT Exam: Mucous Membranes Moist, Normal Oropharynx - Neck Exam Additional comments: neck brace in place - Respiratory Exam Respiratory Exam: Clear to Ausculation Bilateral, NORMAL BREATHING PATTERN - Cardiovascular Exam Cardiovascular Exam: RRR, +S1, +S2 - GI/Abdominal Exam GI & Abdominal Exam: Soft, Normal Bowel Sounds. absent: Tenderness, Mass, Organomegaly - Extremities Exam Extremities Exam: Normal Capillary Refill. absent: Calf Tenderness, Tenderness - Back Exam Back Exam: absent: CVA tenderness (L), CVA tenderness (R), rash noted - Neurological Exam Neurological Exam: Alert, Awake, Oriented x3 - Psychiatric Exam Psychiatric exam: Normal Affect, Normal Mood - Skin Skin Exam: Dry, Normal Color, Warm Assessment and Plan - Assessment and Plan (Free Text) Plan: 67 y/o male with PMHx significant for Cervical disc degenerative disease s/p recent C4C5C6 discectomy with fusion 01/15 ,CAD/Stents, DM2, poorly controlled HTN, prior treatment for prostate cancer,anxiety , was transferred from [facility] to acute rehab for physical therapy.He was noted to have accelerated hypertension on admission so was transferred to telemetry for observation and BP management . At present BP is better controlled and patient is back in acute rehab participating with PT . Pt has had several episodes of hypertensive urgency, no evidence of end organ damage, treated with Labetalol. Today 01/26 patient had another episode of hypertensive urgency this morning with systolic BP 201/104 in AM. Prior BP continued to be in 135-150s range, pt has room for stricter BP control. Medications adjusted today: Increased Trandate to Q8 hours for stricter administration times, and increased frequency from BID Increased Gabapentin to 600 mg Q8 for neuropathic pain 1. Cervical Radiculopathy with associated RUE Weakness due to cervical stenosis s/p discectomy with fusion C4,5,6 (01/15 ) continue PT in acute rehab pt continued to report sharp, burning pain radiating down from neck to shoulders today pain management: Scheduled Tylenol 975mg Q8 Increased Gabapentin to 600 mg Q8 hours Oxycodone d/c at patient's request Dilaudid also only PRN severe pain per patient request Ultram 50 PRN for moderate pain physiatry on consult 2. 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 CAD s/p PTCA Continue Lipitor , ASA Heart Healthy Diet 6. Chronic NIDDM2, controlled, A1C 6.5 on Metformin SSI-Low and Accuchecks ACHS Moderate Carbohydrate Consistency Diet 7. History of Chronic lower back pack Continue gabapentin, pain management does not want Lyrica and oxycodone. Will discontinue both Start Ultram PRN 8. Anxiety Psych consulted and recommended starting Zoloft or Cymbalta but patient initially refused . Discussed with patient today and agrees to start Zoloft d/c Xanax 9. Hx Prostate Cancer with Urinary Retention 10. Constipation continue home amitiza Colace 11. Smoker will offer nicotine patch 12.GI/ DVT Prophylaxis Protonix,lovenox
--- NOTE | 2018-01-26 13:09 | PSY.TMCNF ---
Nursing - Vital Signs Vital Signs (Last 8 hours): Vital Signs 01/26/18 01/26/18 01/26/18 07:16 07:17 07:30 Temperature 97.7 F Pulse Rate 58 L 58 L 58 L Respiratory 20 Rate Blood Pressure 201/78 H 201/78 H 201/78 H O2 Sat by Pulse 99 Oximetry 01/26/18 01/26/18 01/26/18 08:03 08:38 08:57 Temperature 97.7 F Pulse Rate 61 58 L Respiratory 20 Rate Blood Pressure 201/104 H 150/84 201/104 H O2 Sat by Pulse Oximetry 01/26/18 01/26/18 09:47 12:21 Temperature Pulse Rate 51 L Respiratory Rate Blood Pressure 149/78 149/81 O2 Sat by Pulse Oximetry Pain: 2 - Precautions: Precautions: Fall Prevention, Cardiac/Pulmonary - Medications/Other Issues Comment: - BP still elevated. Seen by Dr. Peck , re-started pt on Xanax PRN. Seen by Cardiology. Pending Psychology consult due to anxiety. Pt Verbalized fear of dying due to high BP. - Consults Comment: Dr. Morales, Dr. Moura, Dr. Bhatt - Skin Incision Site: Anterior neck Dressing Status: Clean, Dry, Intact Incision: Steri-Strips Intact Incision Line Treatment: Anterior neck I/L covered with steri-strips and tegaderm. Steri-strips dry and tegaderm remain dry and intact. - Toileting Toileting: Supervision - Bladder Management Bladder Pattern: Normal Voiding Method: Toilet, Urinal Bladder Management: Supervision Frequency of Accidents: 0 - Bowel Management Bowel Pattern: Normal Bowel Management: Modified Independent Frequency of Accidents: 0 - Transfers Transfers: Minimal Assistance - ADL's ADL's: Minimal Assistance - Pain Management Comments: On Dilaudid IVP and Ultram PO PRN pain - Patient/Family Teaching Comments: Care post laminectomy and safety precautions. Pain management. Relaxation techniques - Goals/Time Frame Comments: Per multidisciplinary care plan and goals - Provider Provider: Kristel MARCHN RN CRRN Physical Therapy - Bed Mobility Bed Mobility: Contact Guard - Transfers Wheelchair to Mat: Verbal Cues, Contact Guard Sit to Stand: Verbal Cues, Contact Guard - Ambulation Level of Assistance: Supervision, Verbal Cues Distance (ft.): 125 Assistive Devices: Rolling Walker - Stair Negotiation Stairs: Level of Assistance: Verbal Cues, Contact Guard Number of Stairs: 4 Stairs: Assistive Devices: Left Handrail, Right Handrail - Standing Balance Static Stand: Supervision Dynamic Stand: Contact Guard Assist - Pain Management Techniques: Inactivity - Insight/Carryover Insight/Carryover: Good - Patient/Family Education Comment: Spinal precautions, safety - Assessment/Plan Assessment: Pt participating in PT tx sessions focusing on BLE strengthening exercises, balance and endurance activities, and functional mobiltiy training. Pt requires CGA for bed mobility and transfers, cloise S for ambulation with RW , CGA for stair negotiation. Pt will continue to benefit from skilled PT intervention to address deficits, reduce fall risk, and maximize functional independence. Pt has 25 stairs inside his home/ - Goals Timeframe: 10 days Goals: SIt < > supine mod I. Sit < > stand transfers mod I with NBQC. Pt will ambulate 150 ft mod I with NBQC. Pt will ascend/descend 25 stairs with one handrail and mod I - Provider Therapist: edward License Number: [id number] Occupational Therapy - Arousal/Attention/Orientation Patient Orientation: Person, Place, Time, Appropriate to Age, Appropriate to Situation - ADL/IADL Self Feeding: Set-up Help Grooming: Supervision, Verbal Cues, Set-up Help Bathing-Upper Extremity: Supervision Dressing-Upper Extremity: Supervision, Verbal Cues, Set-up Help Dressing-Lower Extremity: Verbal Cues, Set-up Help, Contact Guard, Minimal Assistance Comment: BATHING skills: TBA - Sitting Balance Static Sitting: Independent without upper extremity support Dynamic Sitting: Reaches across midline, Reaches out of base of support, Reaches within base of support, Requires supervision Comment: seated at edge of bed - Transfers Wheelchair to Bed Transfers: Verbal Cues, Set-up Help, Contact Guard, Minimal Assistance Toilet Transfers: Verbal Cues, Set-up Help, Contact Guard, Minimal Assistance Comment: -transfer tub bench transfers: Min assist and verbal cues. *commode placed over toilet to fcailitate sit<->stand, transfers - Wheelchair Management Level of Assistance: Verbal Cues, Set-up Help, Minimal Assistance Distance (ft.): 15 - Upper Extremity Status Right Upper Extremity Comment: -R shoulder flexion limited AROM ~0-45, PROM to ~ 0-80; other ranges WFLS. R pulp refiner operator: 65-lbs. R tripod: 13 Left Upper Extremity Comment: A/PROM is WFLS. L pulp refiner operator: 55-lbs. L tripod: 11-lbs - Pain Alleviating Techniques: Inactivity - Insight/Carryover Insight/Carryover: Good - Patient/Family Education Comment: Spinal precautions, safety - Assessment/Plan Assessment: Pt participating in PT tx sessions focusing on BLE strengthening exercises, balance and endurance activities, and functional mobiltiy training. Pt requires CGA for bed mobility and transfers, cloise S for ambulation with RW , CGA for stair negotiation. Pt will continue to benefit from skilled PT intervention to address deficits, reduce fall risk, and maximize functional independence. Pt has 25 stairs inside his home/ - Goals Timeframe: 10 days Goals: SIt < > supine mod I. Sit < > stand transfers mod I with NBQC. Pt will ambulate 150 ft mod I with NBQC. Pt will ascend/descend 25 stairs with one handrail and mod I - Provider Therapist: Virginia Rivera, OTR/L License Number: [id number] Speech Therapy - Plan Assessment: Pt participating in PT tx sessions focusing on BLE strengthening exercises, balance and endurance activities, and functional mobiltiy training. Pt requires CGA for bed mobility and transfers, cloise S for ambulation with RW , CGA for stair negotiation. Pt will continue to benefit from skilled PT intervention to address deficits, reduce fall risk, and maximize functional independence. Pt has 25 stairs inside his home/ Recreational Therapy - Participation Participation: Participates in Individual and/or Group Sessions, Monitors His/ Her Own Leisure Time - Attendance Attendance: 3-5 times per week - Activities Leisure Activities: Television - Socialization Level of Socialization: Initiates/interacts freely with care givers and peer - Assessment Assessment/Plan: Pt participating in PT tx sessions focusing on BLE strengthening exercises, balance and endurance activities, and functional mobiltiy training. Pt requires CGA for bed mobility and transfers, cloise S for ambulation with RW, CGA for stair negotiation. Pt will continue to benefit from skilled PT intervention to address deficits, reduce fall risk, and maximize functional independence. Pt has 25 stairs inside his home/ - Provider Therapist: Mercedez Velazquez, [employer] [facility] #[id number] Nutrition - Current Diet Current Diet/ Supplement/ Feedings: Moderate consistent CHO heart healthy diet - Appetite Percent Meal Consumed: 75-100% - Comments Comments: Care post laminectomy and safety precautions. Pain management. Relaxation techniques - Assessment/Goals/Time Frame Assessment/Goals/Time Frame: - BP still elevated. Seen by Dr. Peck , re-started pt on Xanax PRN. Seen by Cardiology. Pending Psychology consult due to anxiety. Pt Verbalized fear of dying due to high BP. - Provider Provider: Radha Christiansen RD Case Management - Discharge Plan Discharge Plan: Home with significant other/family Rehabilitation Plan - Treatment Plan Treatment Plan: Physical Therapy, Occupational Therapy, Dietary, Pain Management , Wound Care, Patient/Family Education - Discharge Plan Estimated Date of Discharge: 02/04/18 Discharge to: Home
--- NOTE | 2018-01-26 15:06 | CP.PCM.CON ---
History of Present Illness - History of Present Illness History of Present Illness: Pt is a 67 year old male admitted to [facility] following a laminectomy, patient also positive for recent anurysm';s requiring attention. See medical record for complete medical history and medications. Social History : pt lives with /common law of 42 years. They have three chidren together and patient has other children from his previous 2 marriages. Pt has six other children and 14 grandchildren in total. Pt denied family tensions. Ed/Voc: pt raised in [place], graduated and two years of college. 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 Psych history denied, patient denied a history of alc/sub abuse. On interview, pt discussed his anxiety and concerns about the future. Strategies reviewed to reduce depression and anxiety. MSE: pt alert, oriented, relevant/coherent, no psychosis, affect constricted, mood anxious, no si no hi ideation. Dx: Anxiety Dx Adjustment Dx plan: Continued Sup therapy Past Patient History - Infectious Disease Hx of Infectious Diseases: None - Tetanus Immunizations Tetanus Immunization: Unknown - Past Medical History & Family History Past Medical History?: Yes - Past Social History Smoking Status: Light Smoker < 10 Cigarettes Daily Chewing Tobacco Use: No Cigar Use: No Alcohol: Social Drugs: Denies Home Situation {Lives}: With Family Domestic Violence: Negative - CARDIAC Hx Cardiac Disorders: Yes (CAD, PTCA) Hx Hypercholesterolemia: Yes Hx Hypertension: Yes - PULMONARY Hx Chronic Obstructive Pulmonary Disease (COPD): Yes Hx Pneumonia: Yes - NEUROLOGICAL HX Cerebrovascular Accident: Yes (as per MRI, PMH of TIA) - HEENT Hx HEENT Problems: No - RENAL Hx Chronic Kidney Disease: No - ENDOCRINE/METABOLIC Hx Diabetes Mellitus Type 2: Yes - HEMATOLOGICAL/ONCOLOGICAL Hx Blood Transfusions: No Hx Blood Transfusion Reaction: No - INTEGUMENTARY Hx Dermatological Problems: No - MUSCULOSKELETAL/RHEUMATOLOGICAL Hx Back Pain: Yes Hx Degenerative Joint Disease: Yes - GASTROINTESTINAL Hx Gastrointestinal Disorders: Yes Hx Constipation: Yes - GENITOURINARY/GYNECOLOGICAL Hx Prostate Cancer: Yes - PSYCHIATRIC Hx Anxiety: Yes Hx Substance Use: No - SURGICAL HISTORY Hx Coronary Stent: Yes Hx Orthopedic Surgery: Yes - ANESTHESIA Hx Anesthesia: Yes Has any member of the family had a problem w/ anesthesia?: No Meds Allergies/Adverse Reactions: Allergies Allergy/AdvReac Type Severity Reaction Status Date / Time No Known Allergies Allergy Verified 05/30/18 11:46 - Medications Medications: Current Medications Acetaminophen (Tylenol 325mg Tab) 650 mg PO Q6 PRN PRN Reason: Fever >100.4 F Albuterol/Ipratropium (Duoneb 3 Mg/0.5 Mg (3 Ml) Ud) 3 ml IH RQ6 [facility] Last Admin: 01/26/18 13:15 Dose: Not Given Alprazolam (Xanax) 0.5 mg PO Q6 PRN PRN Reason: Anxiety Atorvastatin Calcium (Lipitor) 10 mg PO HS [facility] Last Admin: 01/25/18 21:42 Dose: 10 mg Clonidine HCl (Catapres) 0.3 mg PO Q8 [facility] Last Admin: 01/26/18 14:05 Dose: 0.3 mg Cyclobenzaprine HCl (Flexeril) 10 mg PO TID PRN PRN Reason: Pain, Mild (1-3) Last Admin: 01/26/18 09:50 Dose: 10 mg Docusate Sodium (Colace) 100 mg PO BID [facility] Last Admin: 01/26/18 09:51 Dose: 100 mg Enoxaparin Sodium (Lovenox) 40 mg SC DAILY [facility] PRN Reason: Protocol Last Admin: 01/26/18 09:50 Dose: 40 mg Furosemide (Lasix) 40 mg PO DAILY [facility] Last Admin: 01/26/18 08:03 Dose: 40 mg Gabapentin (Neurontin) 600 mg PO Q8 [facility] Last Admin: 01/26/18 14:04 Dose: 600 mg Home Med (Lubiprostone [Amitiza]) 24 mcg PO BID [facility] Last Admin: 01/24/18 10:49 Dose: Not Given Hydralazine HCl (Apresoline) 75 mg PO Q6H [facility] Last Admin: 01/26/18 12:21 Dose: 75 mg Hydromorphone HCl (Dilaudid) 2 mg PO Q4 PRN PRN Reason: pain 4-7/10 Hydromorphone HCl (Dilaudid) 4 mg PO Q4 PRN PRN Reason: prn 8-10/10 Insulin Human Lispro (Humalog) 0 units SC ACHS [facility] PRN Reason: Protocol Last Admin: 01/26/18 11:29 Dose: Not Given Labetalol HCl (Trandate) 100 mg PO Q8 [facility] Last Admin: 01/26/18 14:04 Dose: 100 mg Losartan Potassium (Cozaar) 100 mg PO DAILY [facility] Last Admin: 01/26/18 08:03 Dose: 100 mg Metformin HCl (Glucophage) 500 mg PO TID [facility] Last Admin: 01/26/18 12:22 Dose: 500 mg Nicotine (Nicoderm Cq) 1 patch TD DAILY [facility] Last Admin: 01/26/18 09:51 Dose: 1 patch Oxycodone HCl (Oxycontin Extended Release Tab) 30 mg PO HS [facility] Stop: 01/29/18 22:01 Oxycodone HCl (Oxycontin Extended Release Tab) 20 mg PO DAILY [facility] Pantoprazole Sodium (Protonix Ec Tab) 40 mg PO 0600 [facility] Last Admin: 01/26/18 06:26 Dose: 40 mg Sertraline HCl (Zoloft) 50 mg PO HS [facility] Last Admin: 01/25/18 21:42 Dose: 50 mg Results - Vital Signs Recent Vital Signs: Last Vital Signs Temp 97.7 F 01/26/18 08:57 Pulse 51 L 01/26/18 09:47 Resp 20 01/26/18 08:57 BP 136/67 01/26/18 14:05 Pulse Ox 99 01/26/18 07:30 - Labs Result Diagrams: 01/26/18 06:30 01/26/18 06:30 Labs: Laboratory Results - last 24 hr 01/25/18 01/25/18 01/25/18 11:15 16:21 21:38 WBC RBC Hgb Hct MCV MCH MCHC RDW Plt Count Sodium Potassium Chloride Carbon Dioxide Anion Gap BUN Creatinine Est GFR ( Amer) Est GFR (Non-Af Amer) POC Glucose (mg/dL) 102 96 112 H Random Glucose Calcium 01/26/18 01/26/18 01/26/18 06:24 06:30 06:30 WBC 6.7 RBC 4.55 Hgb 11.6 L Hct 35.2 MCV 77.3 L MCH 25.6 L MCHC 33.1 RDW 18.0 H Plt Count 282 Sodium 136 Potassium 4.3 Chloride 95 L Carbon Dioxide 32 H Anion Gap 13 BUN 12 Creatinine 0.9 Est GFR ( Amer) > 60 Est GFR (Non-Af Amer) > 60 POC Glucose (mg/dL) 105 Random Glucose 112 H Calcium 9.2
--- NOTE | 2018-01-26 17:35 | CP.PCM.PN ---
Subjective - Date & Time of Evaluation Date of Evaluation: 01/26/18 Time of Evaluation: 17:35 - Subjective Subjective: pt with elevated bp in am x 2 days. hr has been running around 50bpm given clonidine dose. pt had n/v and tremors with bp spike. Objective - Vital Signs/Intake and Output Vital Signs (last 24 hours): Temp Pulse Resp BP Pulse Ox 97.7 F 51 L 20 147/83 99 01/26/18 08:57 01/26/18 09:47 01/26/18 08:57 01/26/18 17:08 01/26/18 07:30 - Medications Medications: Current Medications Acetaminophen (Tylenol 325mg Tab) 650 mg PO Q6 PRN PRN Reason: Fever >100.4 F Albuterol/Ipratropium (Duoneb 3 Mg/0.5 Mg (3 Ml) Ud) 3 ml IH RQ6 [facility] Last Admin: 01/26/18 13:15 Dose: Not Given Alprazolam (Xanax) 0.5 mg PO Q6 PRN PRN Reason: Anxiety Atorvastatin Calcium (Lipitor) 10 mg PO HS [facility] Last Admin: 01/25/18 21:42 Dose: 10 mg Clonidine HCl (Catapres) 0.3 mg PO Q8 [facility] Last Admin: 01/26/18 14:05 Dose: 0.3 mg Cyclobenzaprine HCl (Flexeril) 10 mg PO TID PRN PRN Reason: Pain, Mild (1-3) Last Admin: 01/26/18 09:50 Dose: 10 mg Docusate Sodium (Colace) 100 mg PO BID [facility] Last Admin: 01/26/18 17:09 Dose: 100 mg Enoxaparin Sodium (Lovenox) 40 mg SC DAILY [facility] PRN Reason: Protocol Last Admin: 01/26/18 09:50 Dose: 40 mg Furosemide (Lasix) 40 mg PO DAILY [facility] Last Admin: 01/26/18 08:03 Dose: 40 mg Gabapentin (Neurontin) 600 mg PO Q8 [facility] Last Admin: 01/26/18 14:04 Dose: 600 mg Home Med (Lubiprostone [Amitiza]) 24 mcg PO BID [facility] Last Admin: 01/24/18 10:49 Dose: Not Given Hydralazine HCl (Apresoline) 75 mg PO Q6H [facility] Last Admin: 01/26/18 17:08 Dose: 75 mg Hydromorphone HCl (Dilaudid) 2 mg PO Q4 PRN PRN Reason: pain 4-7/10 Hydromorphone HCl (Dilaudid) 4 mg PO Q4 PRN PRN Reason: prn 8-10/10 Insulin Human Lispro (Humalog) 0 units SC ACHS [facility] PRN Reason: Protocol Last Admin: 01/26/18 17:09 Dose: Not Given Labetalol HCl (Trandate) 100 mg PO Q8 [facility] Last Admin: 01/26/18 14:04 Dose: 100 mg Losartan Potassium (Cozaar) 100 mg PO DAILY [facility] Last Admin: 01/26/18 08:03 Dose: 100 mg Metformin HCl (Glucophage) 500 mg PO TID [facility] Last Admin: 01/26/18 17:09 Dose: 500 mg Nicotine (Nicoderm Cq) 1 patch TD DAILY [facility] Last Admin: 01/26/18 09:51 Dose: 1 patch Oxycodone HCl (Oxycontin Extended Release Tab) 30 mg PO [facility] Stop: 01/29/18 22:01 Oxycodone HCl (Oxycontin Extended Release Tab) 20 mg PO DAILY [facility] Pantoprazole Sodium (Protonix Ec Tab) 40 mg PO 0600 [facility] Last Admin: 01/26/18 06:26 Dose: 40 mg Sertraline HCl (Zoloft) 50 mg PO [facility] Last Admin: 01/25/18 21:42 Dose: 50 mg - Labs Labs: 01/26/18 06:30 01/26/18 06:30 - Constitutional Appears: Well - Head Exam Head Exam: ATRAUMATIC, NORMAL INSPECTION, NORMOCEPHALIC - Eye Exam Eye Exam: EOMI, Normal appearance, PERRL. absent: Conjunctival injection, Nystagmus, Periorbital swelling, Periorbital tenderness, Scleral icterus Pupil Exam: NORMAL ACCOMODATION, PERRL - ENT Exam ENT Exam: Mucous Membranes Moist, Normal Exam. absent: Mucous Membranes Dry, Normal External Ear Exam, Normal Oropharynx, TM's Normal Bilaterally - Neck Exam Additional comments: cervical collar in place - Respiratory Exam Respiratory Exam: Clear to Ausculation Bilateral, NORMAL BREATHING PATTERN. absent: Accessory Muscle Use, Chest Wall Tenderness, Decreased Breath Sounds, Prolonged Expiratory Phase, Rales, Rhonchi, Wheezes, Respiratory Distress, Stridor - Cardiovascular Exam Cardiovascular Exam: Bradycardia, +S1, +S2. absent: Tachycardia, Clicks, Diastolic murmur, Gallop, Irregular Rhythm, REGULAR RHYTHM, JVD, RRR, Rubs, +S4 , Murmur - GI/Abdominal Exam GI & Abdominal Exam: Soft, Normal Bowel Sounds. absent: Bruit, Distended, Firm , Guarding, Rigid, Tenderness, Diminished Bowel Sounds, Hernia, Hyperactive Bowel Sounds, Hypoactive Bowel Sounds, Organomegaly, Pulsatile Mass, Rebound, Mass - Rectal Exam Rectal Exam: Deferred - Extremities Exam Extremities Exam: Full ROM, Normal Capillary Refill, Normal Inspection. absent : Calf Tenderness, Joint Swelling, Pedal Edema, Tenderness - Back Exam Back Exam: NORMAL INSPECTION. absent: CVA tenderness (L), CVA tenderness (R), Full ROM, muscle spasm, paraspinal tenderness, rash noted, tenderness, vertebral tenderness - Neurological Exam Neurological Exam: Alert, Awake, CN II-XII Intact, Normal Gait, Oriented x3. absent: Abnormal Gait, Altered, Motor Sensory Deficit, Reflexes Normal - Psychiatric Exam Psychiatric exam: Normal Affect, Normal Mood. absent: Agitated, Anxious, Depressed, Flat Affect, Homicidal Ideation, Manic, Suicidal Ideation - Skin Skin Exam: Dry, Intact, Normal Color, Warm. absent: Abrasion, Cyanosis, Diaphoretic, Erythema, Mottled, Pallor, Pallor, Petechiae, Rash, Urticaria, Vesicles Assessment and Plan (1) Hypertensive urgency Status: Acute (2) Hypokalemia Status: Acute (3) DM2 (diabetes mellitus, type 2) Status: Chronic - Assessment and Plan (Free Text) Plan: would advise against increasing labetalol given bradycardia and clonidine. i have decreased labetalol to q12. added norvasc 10mg q12. once pain controlled if bp decreases then can lower to norvasc 5mg q12. will check a serum metanephrine.
[2018-01-26] MEDS ORDERED: oxyCODONE 10 mg ER Tab (oxyCONTIN) PO SCH (22:00)
[2018-01-27] MEDS: Albuterol-Ipratrop 3 mg / 0.5 (3 ml) UD IH SCH ×4 (01:01→19:06)
[2018-01-27] MEDS: Pantoprazole 40 mg EC Tab PO SCH (06:28)
[2018-01-27] MEDS: Insulin Lispro (humaLOG) 100 Units/ml Inj SC SCH ×2 (06:30→12:07)
[2018-01-27] MEDS: Enoxaparin 40 mg Syringe SC SCH (08:19)
[2018-01-27] MEDS ORDERED: oxyCODONE 20 mg ER Tab (oxyCONTIN) PO SCH (09:00)
[2018-01-27] MEDS: oxyCODONE 10 mg ER Tab (oxyCONTIN) PO SCH (10:15)
--- NOTE | 2018-01-27 17:58 | CP.PCM.PN ---
Subjective - Date & Time of Evaluation Date of Evaluation: 01/27/18 Time of Evaluation: 17:56 - Subjective Subjective: Patient seen in the room the 30mg oxycontin was too much and he was groggy this morning He took a 10mg instead of the planned 20mg this morning and did very well had no prn meds! Will try the 20mg tonight and hopefully be able to ween off soon Objective - Vital Signs/Intake and Output Vital Signs (last 24 hours): Temp Pulse Resp BP Pulse Ox 98.2 F 60 20 134/72 95 01/27/18 07:41 01/27/18 17:25 01/27/18 07:41 01/27/18 17:25 01/27/18 07:41 - Medications Medications: Current Medications Acetaminophen (Tylenol 325mg Tab) 650 mg PO Q6 PRN PRN Reason: Fever >100.4 F Albuterol/Ipratropium (Duoneb 3 Mg/0.5 Mg (3 Ml) Ud) 3 ml IH RQ6 [facility] Last Admin: 01/27/18 13:08 Dose: Not Given Alprazolam (Xanax) 0.5 mg PO Q6 PRN PRN Reason: Anxiety Amlodipine Besylate (Norvasc) 10 mg PO Q12 [facility] Last Admin: 01/27/18 08:21 Dose: 10 mg Atorvastatin Calcium (Lipitor) 10 mg PO HS [facility] Last Admin: 01/26/18 21:29 Dose: 10 mg Clonidine HCl (Catapres) 0.3 mg PO Q8 [facility] Last Admin: 01/27/18 14:52 Dose: 0.3 mg Cyclobenzaprine HCl (Flexeril) 10 mg PO TID PRN PRN Reason: Pain, Mild (1-3) Last Admin: 01/26/18 09:50 Dose: 10 mg Docusate Sodium (Colace) 100 mg PO BID [facility] Last Admin: 01/27/18 17:23 Dose: 100 mg Enoxaparin Sodium (Lovenox) 40 mg SC DAILY [facility] PRN Reason: Protocol Last Admin: 01/27/18 08:19 Dose: 40 mg Furosemide (Lasix) 40 mg PO DAILY [facility] Last Admin: 01/27/18 08:21 Dose: 40 mg Gabapentin (Neurontin) 600 mg PO Q8 [facility] Last Admin: 01/27/18 13:23 Dose: 600 mg Home Med (Lubiprostone [Amitiza]) 24 mcg PO BID [facility] Last Admin: 01/24/18 10:49 Dose: Not Given Hydralazine HCl (Apresoline) 75 mg PO Q6H [facility] Last Admin: 01/27/18 17:25 Dose: 75 mg Hydromorphone HCl (Dilaudid) 2 mg PO Q4 PRN PRN Reason: pain 4-7/10 Hydromorphone HCl (Dilaudid) 4 mg PO Q4 PRN PRN Reason: prn 8-10/10 Insulin Human Lispro (Humalog) 0 units SC ACB [facility] PRN Reason: Protocol Labetalol HCl (Trandate) 100 mg PO Q12 [facility] Last Admin: 01/27/18 08:20 Dose: 100 mg Losartan Potassium (Cozaar) 100 mg PO DAILY [facility] Last Admin: 01/27/18 08:22 Dose: 100 mg Metformin HCl (Glucophage) 500 mg PO TID [facility] Last Admin: 01/27/18 17:24 Dose: 500 mg Nicotine (Nicoderm Cq) 1 patch TD DAILY [facility] Last Admin: 01/27/18 08:22 Dose: 1 patch Oxycodone HCl (Oxycontin Extended Release Tab) 10 mg PO DAILY [facility] Stop: 01/30/18 09:46 Last Admin: 01/27/18 10:15 Dose: 10 mg Oxycodone HCl (Oxycontin Extended Release Tab) 20 mg PO [facility] Pantoprazole Sodium (Protonix Ec Tab) 40 mg PO 0600 [facility] Last Admin: 01/27/18 06:28 Dose: 40 mg Sertraline HCl (Zoloft) 50 mg PO [facility] Last Admin: 01/26/18 21:29 Dose: 50 mg - Labs Labs: 01/26/18 06:30 01/26/18 06:30
[2018-01-27] MEDS: oxyCODONE 20 mg ER Tab (oxyCONTIN) PO SCH (23:51)
[2018-01-28] MEDS: Albuterol-Ipratrop 3 mg / 0.5 (3 ml) UD IH SCH ×4 (01:05→19:18)
[2018-01-28] MEDS: oxyCODONE 20 mg ER Tab (oxyCONTIN) PO SCH ×2 (01:09→22:52)
[2018-01-28] MEDS: Pantoprazole 40 mg EC Tab PO SCH (06:38)
[2018-01-28] MEDS: Insulin Lispro (humaLOG) 100 Units/ml Inj SC SCH (07:09)
[2018-01-28] MEDS: oxyCODONE 10 mg ER Tab (oxyCONTIN) PO SCH (08:40)
[2018-01-28] MEDS: Enoxaparin 40 mg Syringe SC SCH (08:46)
[2018-01-29] MEDS: Albuterol-Ipratrop 3 mg / 0.5 (3 ml) UD IH SCH ×4 (01:29→19:23)
[2018-01-29] MEDS: Pantoprazole 40 mg EC Tab PO SCH (05:43)
[2018-01-29] MEDS: Insulin Lispro (humaLOG) 100 Units/ml Inj SC SCH (06:38)
[2018-01-29 07:07] LABS: HEMOGLOBIN 11.5 g/dL (12.0-18.0); MEAN CELL VOLUME 78.4 fl (80.0-94.0); MEAN CORPUSCULAR HEMOGLOBIN 25.6 pg (27.0-31.0); MEAN CORPUSCULAR HGB CONC 32.7 g/dL (33.0-37.0); RBC 4.5 Mil/uL (4.40-5.90); RED CELL DISTRIBUTION WIDTH 18.2 % (11.5-14.5); WHITE BLOOD COUNT 5.8 K/uL (4.8-10.8)
[2018-01-29 07:45] LABS: BLOOD UREA NITROGEN 11 mg/dl (9-20); CALCIUM 8.9 mg/dL (8.4-10.2); GFR AFRICAN-AMERICAN > 60; GFR NON-AFRICAN AMERICAN > 60
[2018-01-29] MEDS: Enoxaparin 40 mg Syringe SC SCH (08:13)
[2018-01-29] MEDS: oxyCODONE 10 mg ER Tab (oxyCONTIN) PO SCH (09:00)
--- NOTE | 2018-01-29 12:25 | CP.PCM.PN ---
Subjective - Date & Time of Evaluation Date of Evaluation: 01/29/18 Time of Evaluation: 11:00 - Subjective Subjective: Patient seen and examined. Denied any complaint but wanted to have his own medication for constipation even though he was doing fine with Colace. Objective - Vital Signs/Intake and Output Vital Signs (last 24 hours): Temp Pulse Resp BP Pulse Ox 97.3 F L 82 20 110/70 96 01/29/18 07:41 01/29/18 09:00 01/29/18 07:41 01/29/18 09:00 01/29/18 07:41 - Medications Medications: Current Medications Acetaminophen (Tylenol 325mg Tab) 650 mg PO Q6 PRN PRN Reason: Fever >100.4 F Albuterol/Ipratropium (Duoneb 3 Mg/0.5 Mg (3 Ml) Ud) 3 ml IH RQ6 [facility] Last Admin: 01/29/18 07:33 Dose: 3 ml Alprazolam (Xanax) 0.5 mg PO Q6 PRN PRN Reason: Anxiety Last Admin: 01/28/18 17:46 Dose: 0.5 mg Amlodipine Besylate (Norvasc) 10 mg PO Q12 [facility] Last Admin: 01/29/18 09:00 Dose: 10 mg Atorvastatin Calcium (Lipitor) 10 mg PO HS [facility] Last Admin: 01/28/18 21:37 Dose: 10 mg Clonidine HCl (Catapres) 0.3 mg PO Q8 [facility] Last Admin: 01/29/18 05:43 Dose: 0.3 mg Cyclobenzaprine HCl (Flexeril) 10 mg PO TID PRN PRN Reason: Pain, Mild (1-3) Last Admin: 01/26/18 09:50 Dose: 10 mg Docusate Sodium (Colace) 100 mg PO BID [facility] Last Admin: 01/29/18 08:10 Dose: 100 mg Enoxaparin Sodium (Lovenox) 40 mg SC DAILY [facility] PRN Reason: Protocol Last Admin: 01/29/18 08:13 Dose: 40 mg Furosemide (Lasix) 40 mg PO DAILY [facility] Last Admin: 01/29/18 08:13 Dose: 40 mg Gabapentin (Neurontin) 600 mg PO Q8 [facility] Last Admin: 01/29/18 05:43 Dose: 600 mg Home Med (Lubiprostone [Amitiza]) 24 mcg PO BID [facility] Last Admin: 01/24/18 10:49 Dose: Not Given Hydralazine HCl (Apresoline) 75 mg PO Q6H [facility] Last Admin: 01/29/18 07:20 Dose: Not Given Hydromorphone HCl (Dilaudid) 2 mg PO Q4 PRN PRN Reason: pain 4-7/10 Hydromorphone HCl (Dilaudid) 4 mg PO Q4 PRN PRN Reason: prn 8-10/10 Insulin Human Lispro (Humalog) 0 units SC B [facility] PRN Reason: Protocol Last Admin: 01/29/18 06:38 Dose: Not Given Labetalol HCl (Trandate) 100 mg PO Q12 [facility] Last Admin: 01/29/18 10:00 Dose: 100 mg Losartan Potassium (Cozaar) 100 mg PO DAILY [facility] Last Admin: 01/29/18 08:11 Dose: Not Given Metformin HCl (Glucophage) 500 mg PO TID [facility] Last Admin: 01/29/18 08:12 Dose: 500 mg Nicotine (Nicoderm Cq) 1 patch TD DAILY [facility] Last Admin: 01/29/18 08:15 Dose: 1 patch Oxycodone HCl (Oxycontin Extended Release Tab) 10 mg PO DAILY [facility] Stop: 01/30/18 09:46 Last Admin: 01/29/18 09:00 Dose: Not Given Oxycodone HCl (Oxycontin Extended Release Tab) 20 mg PO [facility] Last Admin: 01/28/18 22:52 Dose: 20 mg Pantoprazole Sodium (Protonix Ec Tab) 40 mg PO 0600 [facility] Last Admin: 01/29/18 05:43 Dose: 40 mg Sertraline HCl (Zoloft) 50 mg PO [facility] Last Admin: 01/28/18 21:37 Dose: 50 mg - Labs Labs: 01/29/18 06:45 01/29/18 06:45 - Constitutional Appears: No Acute Distress - Head Exam Head Exam: ATRAUMATIC - Eye Exam Eye Exam: absent: Scleral icterus - ENT Exam ENT Exam: Mucous Membranes Moist - Neck Exam Neck Exam: absent: Full ROM (on neck brace post-discectomy) - Respiratory Exam Respiratory Exam: absent: Rales, Rhonchi, Wheezes, Respiratory Distress - Cardiovascular Exam Cardiovascular Exam: REGULAR RHYTHM, +S1, +S2 - GI/Abdominal Exam GI & Abdominal Exam: Soft. absent: Tenderness - Rectal Exam Rectal Exam: Deferred - Neurological Exam Neurological Exam: Alert, Oriented x3 - Psychiatric Exam Psychiatric exam: Normal Affect - Skin Skin Exam: Dry, Intact Assessment and Plan - Assessment and Plan (Free Text) Assessment: 67 yo male with history of CAD, DM2, HTN and Prostate Ca underwent anterior discectomy and fusion of C4-5 and C5-6 on 01/15/2018 at [facility] because of cervical degenerative disc disease with severe myeloradiculopathy. An incidental finding of basilar aneurysm was noted at the posterior cerebral and superior cerebellar arteries was noted on imaging. Patient did well post-op and was later transferred to [facility] and admitted in Acute Rehab for therapy on . He was noted to have accelerated HTN on admission so [employer] was called. Patient was transferred to telemetry for observation and management. His BP was controlled. On 01/22/2018 patient was re-admitted to Acute Rehab for continuation of therapy. 1. Cervical Radiculopathy with associated RUE Weakness due to cervical stenosis s/p discectomy with fusion C4-5, C5-6 continue PT in acute rehab still with sharp, burning pain radiating down from neck to shoulders continue pain management as needed not round the clock patient refused pain medication when he is not in pain 2. Accelerated hypertension BP stable continue Amlodipine, Clonidine, Hydralazine, Labetalol, Losartan and Lasix 3. Gait Imbalance, Ataxia continue PT 4. 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 CAD Continue Lipitor, ASA Heart Healthy Diet 6. DM2 A1C: 6.5 BS controlled continue Metformin Accuchecks ACHS Moderate Carbohydrate Consistency Diet 7. Chronic Low Back Pain Continue Gabapentin and Ultram 8. Anxiety continue Zoloft 9. Prostate Cancer urinary catheter intact draining bloody urine 10. Constipation continue Colace 11. GI/DVT Prophylaxis continue Protonix and Lovenox
[2018-01-29] MEDS ORDERED: Lidocaine 1% (10 ml) Inj IAA ONE (15:18)
[2018-01-29] MEDS ORDERED: Triamcinolone Acetonide 40 mg/mL Inj IAA ONE (15:18)
[2018-01-29] MEDS ORDERED: Dexamethasone 4 mg/1 ml IAA ONE (15:18)
--- NOTE | 2018-01-29 15:20 | CP.PCM.PN ---
Subjective - Date & Time of Evaluation Date of Evaluation: 01/29/18 Time of Evaluation: 15:19 - Subjective Subjective: Patient seen in the room doing very well pain meds are perfect he feels sleeping well and no side effects no constipation right knee hurting was to get a TKR, we discussed treatment and I will proceed with a right intra- articular injection Objective - Vital Signs/Intake and Output Vital Signs (last 24 hours): Temp Pulse Resp BP Pulse Ox 97.3 F L 60 20 100/60 96 01/29/18 07:41 01/29/18 14:09 01/29/18 07:41 01/29/18 14:09 01/29/18 07:41 - Medications Medications: Current Medications Acetaminophen (Tylenol 325mg Tab) 650 mg PO Q6 PRN PRN Reason: Fever >100.4 F Albuterol/Ipratropium (Duoneb 3 Mg/0.5 Mg (3 Ml) Ud) 3 ml IH RQ6 [facility] Last Admin: 01/29/18 13:15 Dose: Not Given Alprazolam (Xanax) 0.5 mg PO Q6 PRN PRN Reason: Anxiety Last Admin: 01/29/18 15:01 Dose: 0.5 mg Amlodipine Besylate (Norvasc) 10 mg PO Q12 [facility] Last Admin: 01/29/18 09:00 Dose: 10 mg Atorvastatin Calcium (Lipitor) 10 mg PO HS [facility] Last Admin: 01/28/18 21:37 Dose: 10 mg Clonidine HCl (Catapres) 0.3 mg PO Q8 [facility] Last Admin: 01/29/18 14:09 Dose: Not Given Cyclobenzaprine HCl (Flexeril) 10 mg PO TID PRN PRN Reason: Pain, Mild (1-3) Last Admin: 01/26/18 09:50 Dose: 10 mg Dexamethasone (Decadron Inj) 4 mg IAA ONCE ONE Stop: 01/29/18 15:19 Docusate Sodium (Colace) 100 mg PO BID [facility] Last Admin: 01/29/18 08:10 Dose: 100 mg Enoxaparin Sodium (Lovenox) 40 mg SC DAILY [facility] PRN Reason: Protocol Last Admin: 01/29/18 08:13 Dose: 40 mg Furosemide (Lasix) 40 mg PO DAILY [facility] Last Admin: 01/29/18 08:13 Dose: 40 mg Gabapentin (Neurontin) 600 mg PO Q8 [facility] Last Admin: 01/29/18 14:08 Dose: 600 mg Home Med (Lubiprostone [Amitiza]) 24 mcg PO BID [facility] Last Admin: 01/24/18 10:49 Dose: Not Given Hydralazine HCl (Apresoline) 75 mg PO Q6H [facility] Last Admin: 01/29/18 12:48 Dose: 75 mg Hydromorphone HCl (Dilaudid) 2 mg PO Q4 PRN PRN Reason: pain 4-7/10 Hydromorphone HCl (Dilaudid) 4 mg PO Q4 PRN PRN Reason: prn 8-10/10 Insulin Human Lispro (Humalog) 0 units SC B [facility] PRN Reason: Protocol Last Admin: 01/29/18 06:38 Dose: Not Given Labetalol HCl (Trandate) 100 mg PO Q12 [facility] Last Admin: 01/29/18 10:00 Dose: 100 mg Lidocaine HCl (Lidocaine Hydrochloride 1% 10 Ml) 5 ml IAA ONCE ONE Stop: 01/29/18 15:19 Losartan Potassium (Cozaar) 100 mg PO DAILY [facility] Last Admin: 01/29/18 08:11 Dose: Not Given Metformin HCl (Glucophage) 500 mg PO TID [facility] Last Admin: 01/29/18 12:50 Dose: 500 mg Nicotine (Nicoderm Cq) 1 patch TD DAILY [facility] Last Admin: 01/29/18 08:15 Dose: 1 patch Oxycodone HCl (Oxycontin Extended Release Tab) 10 mg PO DAILY [facility] Stop: 01/30/18 09:46 Last Admin: 01/29/18 09:00 Dose: Not Given Oxycodone HCl (Oxycontin Extended Release Tab) 20 mg PO [facility] Last Admin: 01/28/18 22:52 Dose: 20 mg Pantoprazole Sodium (Protonix Ec Tab) 40 mg PO 0600 [facility] Last Admin: 01/29/18 05:43 Dose: 40 mg Sertraline HCl (Zoloft) 50 mg PO [facility] Last Admin: 01/28/18 21:37 Dose: 50 mg Triamcinolone Acetonide (Kenalog-40 Inj) 40 mg IAA ONCE ONE Stop: 01/29/18 15:19 - Labs Labs: 01/29/18 06:45 01/29/18 06:45
[2018-01-29] MEDS ORDERED: Lidocaine 1% PF (5ml) Amp INJ ONE (16:30)
[2018-01-29] MEDS: oxyCODONE 20 mg ER Tab (oxyCONTIN) PO SCH (21:21)
[2018-01-30] MEDS: Albuterol-Ipratrop 3 mg / 0.5 (3 ml) UD IH SCH ×4 (01:41→19:23)
[2018-01-30] MEDS: Pantoprazole 40 mg EC Tab PO SCH (05:58)
[2018-01-30] MEDS: Insulin Lispro (humaLOG) 100 Units/ml Inj SC SCH (07:46)
[2018-01-30] MEDS: Enoxaparin 40 mg Syringe SC SCH (08:13)
[2018-01-30] MEDS: oxyCODONE 10 mg ER Tab (oxyCONTIN) PO SCH (08:15)
[2018-01-30] MEDS ORDERED: Dexamethasone 4 mg/1 ml IAA ONE (12:00)
[2018-01-30] MEDS ORDERED: Lidocaine 1% (10 ml) Inj IAA ONE (12:00)
[2018-01-30] MEDS ORDERED: Lidocaine 1% PF (5ml) Amp INJ ONE (12:00)
[2018-01-30] MEDS ORDERED: Triamcinolone Acetonide 40 mg/mL Inj IAA ONE (12:00)
[2018-01-30] MEDS: oxyCODONE 20 mg ER Tab (oxyCONTIN) PO SCH (22:46)
[2018-01-31] MEDS: Albuterol-Ipratrop 3 mg / 0.5 (3 ml) UD IH SCH ×4 (01:21→19:34)
[2018-01-31] MEDS: Pantoprazole 40 mg EC Tab PO SCH (06:07)
[2018-01-31] MEDS: Insulin Lispro (humaLOG) 100 Units/ml Inj SC SCH (07:30)
[2018-01-31] MEDS: Enoxaparin 40 mg Syringe SC SCH (08:16)
[2018-01-31] MEDS: oxyCODONE 20 mg ER Tab (oxyCONTIN) PO SCH (21:18)
[2018-02-01] MEDS: Albuterol-Ipratrop 3 mg / 0.5 (3 ml) UD IH SCH ×4 (00:59→19:00)
[2018-02-01] MEDS: Pantoprazole 40 mg EC Tab PO SCH (06:06)
[2018-02-01 06:25] LABS: HEMOGLOBIN 11.5 g/dL (12.0-18.0); MEAN CELL VOLUME 77.8 fl (80.0-94.0); MEAN CORPUSCULAR HEMOGLOBIN 25.5 pg (27.0-31.0); MEAN CORPUSCULAR HGB CONC 32.7 g/dL (33.0-37.0); RBC 4.51 Mil/uL (4.40-5.90); RED CELL DISTRIBUTION WIDTH 17.8 % (11.5-14.5); WHITE BLOOD COUNT 5.2 K/uL (4.8-10.8)
[2018-02-01 06:33] LABS: BLOOD UREA NITROGEN 13 mg/dl (9-20); GFR AFRICAN-AMERICAN > 60; GFR NON-AFRICAN AMERICAN > 60
[2018-02-01] MEDS: Insulin Lispro (humaLOG) 100 Units/ml Inj SC SCH (06:35)
[2018-02-01] MEDS: Enoxaparin 40 mg Syringe SC SCH (08:26)
[2018-02-01] MEDS ORDERED: Dexamethasone 4 mg/1 ml IAA ONE (09:45)
--- NOTE | 2018-02-01 09:55 | CP.PCM.PN ---
Subjective - Date & Time of Evaluation Date of Evaluation: 02/01/18 Time of Evaluation: 09:53 - Subjective Subjective: Patient seen in the room performed a right knee IAA with 67cc clear class I fluid removed very thankful taking less pain meds doing very well continue current care Objective - Vital Signs/Intake and Output Vital Signs (last 24 hours): Temp Pulse Resp BP Pulse Ox 97.9 F 52 L 18 119/62 95 02/01/18 07:37 02/01/18 07:37 02/01/18 07:37 02/01/18 08:26 02/01/18 07:37 - Medications Medications: Current Medications Acetaminophen (Tylenol 325mg Tab) 650 mg PO Q6 PRN PRN Reason: Fever >100.4 F Last Admin: 01/29/18 19:05 Dose: 650 mg Albuterol/Ipratropium (Duoneb 3 Mg/0.5 Mg (3 Ml) Ud) 3 ml IH RQ6 [facility] Last Admin: 02/01/18 07:14 Dose: 3 ml Alprazolam (Xanax) 0.5 mg PO Q6 PRN PRN Reason: Anxiety Last Admin: 01/29/18 15:01 Dose: 0.5 mg Amlodipine Besylate (Norvasc) 10 mg PO Q12 [facility] Last Admin: 02/01/18 08:26 Dose: 10 mg Atorvastatin Calcium (Lipitor) 10 mg PO HS [facility] Last Admin: 01/31/18 21:17 Dose: 10 mg Clonidine HCl (Catapres) 0.3 mg PO Q8 [facility] Last Admin: 02/01/18 06:06 Dose: 0.3 mg Cyclobenzaprine HCl (Flexeril) 10 mg PO TID PRN PRN Reason: Pain, Mild (1-3) Last Admin: 01/26/18 09:50 Dose: 10 mg Docusate Sodium (Colace) 100 mg PO BID [facility] Last Admin: 02/01/18 08:24 Dose: 100 mg Enoxaparin Sodium (Lovenox) 40 mg SC DAILY [facility] PRN Reason: Protocol Last Admin: 02/01/18 08:26 Dose: 40 mg Furosemide (Lasix) 40 mg PO DAILY [facility] Last Admin: 02/01/18 08:25 Dose: 40 mg Gabapentin (Neurontin) 600 mg PO Q8 [facility] Last Admin: 02/01/18 06:06 Dose: 600 mg Home Med (Lubiprostone [Amitiza]) 24 mcg PO BID [facility] Last Admin: 01/24/18 10:49 Dose: Not Given Hydralazine HCl (Apresoline) 75 mg PO Q6H [facility] Last Admin: 02/01/18 06:06 Dose: 75 mg Hydromorphone HCl (Dilaudid) 2 mg PO Q4 PRN PRN Reason: pain 4-7/10 Hydromorphone HCl (Dilaudid) 4 mg PO Q4 PRN PRN Reason: prn 8-10/10 Insulin Human Lispro (Humalog) 0 units SC ACB [facility] PRN Reason: Protocol Last Admin: 02/01/18 06:35 Dose: Not Given Labetalol HCl (Trandate) 100 mg PO Q12 [facility] Last Admin: 02/01/18 08:25 Dose: 100 mg Losartan Potassium (Cozaar) 100 mg PO DAILY [facility] Last Admin: 01/31/18 08:19 Dose: Not Given Metformin HCl (Glucophage) 500 mg PO TID [facility] Last Admin: 02/01/18 08:28 Dose: 500 mg Nicotine (Nicoderm Cq) 1 patch TD DAILY [facility] Last Admin: 02/01/18 08:25 Dose: 1 patch Oxycodone HCl (Oxycontin Extended Release Tab) 20 mg PO [facility] Last Admin: 01/31/18 21:18 Dose: 20 mg Pantoprazole Sodium (Protonix Ec Tab) 40 mg PO 0600 [facility] Last Admin: 02/01/18 06:06 Dose: 40 mg Sertraline HCl (Zoloft) 50 mg PO [facility] Last Admin: 01/31/18 21:17 Dose: 50 mg - Labs Labs: 02/01/18 05:25 02/01/18 05:25
--- NOTE | 2018-02-01 09:57 | PCM.PROC ---
Procedures Attestation:: I certify that I have explained the specified Operation(s) or Procedure(s), risks, benefits and reasonable alternatives to the Patient and/or other person responsible. The opportunity was given to ask questions and all questions answered - Joint Aspiration/Injection Joint #1 Consent Obtained: Verbal Consent Time Out Performed: Yes Side of Body: Right Joint Aspirated: Knee Ultrasound Guidance Used: No Skin Prep: Chlorprep Needle Size Used: 22 G Fluid Clarity: Clear Total Fluid Removed (mls): 67 Medication Injected: Triamcinolone Acetate, Methylprednisolone, Lidocaine Patient Tolorated Procedure: Well Complications: None
--- NOTE | 2018-02-01 16:15 | CP.PCM.CON ---
History of Present Illness - History of Present Illness History of Present Illness: Pt seen for supportive therapy 3:50-40 with and son. Pt discussed improved mood, decline in anxiety and use of cognitive strategies to reduce distress. Pt discussed gains made and thoughts of home. concerned with the above and was directed to discuss with social service coordinator. Pt less concerned with the anuerysm, and focused on his future. provided support and encouragement and spoke of the progress observed. plan: Continued Sup therapy Past Patient History - Infectious Disease Hx of Infectious Diseases: None - Tetanus Immunizations Tetanus Immunization: Unknown - Past Medical History & Family History Past Medical History?: Yes - Past Social History Smoking Status: Light Smoker < 10 Cigarettes Daily Chewing Tobacco Use: No Cigar Use: No Alcohol: Social Drugs: Denies Home Situation {Lives}: With Family Domestic Violence: Negative - CARDIAC Hx Cardiac Disorders: Yes (CAD, PTCA) Hx Hypercholesterolemia: Yes Hx Hypertension: Yes - PULMONARY Hx Chronic Obstructive Pulmonary Disease (COPD): Yes Hx Pneumonia: Yes - NEUROLOGICAL HX Cerebrovascular Accident: Yes (as per MRI, PMH of TIA) - HEENT Hx HEENT Problems: No - RENAL Hx Chronic Kidney Disease: No - ENDOCRINE/METABOLIC Hx Diabetes Mellitus Type 2: Yes - HEMATOLOGICAL/ONCOLOGICAL Hx Blood Transfusions: No Hx Blood Transfusion Reaction: No - INTEGUMENTARY Hx Dermatological Problems: No - MUSCULOSKELETAL/RHEUMATOLOGICAL Hx Back Pain: Yes Hx Degenerative Joint Disease: Yes - GASTROINTESTINAL Hx Gastrointestinal Disorders: Yes Hx Constipation: Yes - GENITOURINARY/GYNECOLOGICAL Hx Prostate Cancer: Yes - PSYCHIATRIC Hx Anxiety: Yes Hx Substance Use: No - SURGICAL HISTORY Hx Coronary Stent: Yes Hx Orthopedic Surgery: Yes - ANESTHESIA Hx Anesthesia: Yes Has any member of the family had a problem w/ anesthesia?: No Meds Allergies/Adverse Reactions: Allergies Allergy/AdvReac Type Severity Reaction Status Date / Time No Known Allergies Allergy Verified 01/20/18 11:46 - Medications Medications: Current Medications Acetaminophen (Tylenol 325mg Tab) 650 mg PO Q6 PRN PRN Reason: Fever >100.4 F Last Admin: 01/29/18 19:05 Dose: 650 mg Albuterol/Ipratropium (Duoneb 3 Mg/0.5 Mg (3 Ml) Ud) 3 ml IH RQ6 [facility] Last Admin: 02/01/18 13:09 Dose: 3 ml Alprazolam (Xanax) 0.5 mg PO Q6 PRN PRN Reason: Anxiety Last Admin: 01/29/18 15:01 Dose: 0.5 mg Amlodipine Besylate (Norvasc) 10 mg PO Q12 [facility] Last Admin: 02/01/18 08:26 Dose: 10 mg Atorvastatin Calcium (Lipitor) 10 mg PO HS [facility] Last Admin: 01/31/18 21:17 Dose: 10 mg Clonidine HCl (Catapres) 0.3 mg PO Q8 [facility] Last Admin: 02/01/18 14:47 Dose: 0.3 mg Cyclobenzaprine HCl (Flexeril) 10 mg PO TID PRN PRN Reason: Pain, Mild (1-3) Last Admin: 01/26/18 09:50 Dose: 10 mg Docusate Sodium (Colace) 100 mg PO BID [facility] Last Admin: 02/01/18 08:24 Dose: 100 mg Enoxaparin Sodium (Lovenox) 40 mg SC DAILY [facility] PRN Reason: Protocol Last Admin: 02/01/18 08:26 Dose: 40 mg Furosemide (Lasix) 40 mg PO DAILY [facility] Last Admin: 02/01/18 08:25 Dose: 40 mg Gabapentin (Neurontin) 600 mg PO Q8 [facility] Last Admin: 02/01/18 14:47 Dose: 600 mg Home Med (Lubiprostone [Amitiza]) 24 mcg PO BID [facility] Last Admin: 01/24/18 10:49 Dose: Not Given Hydralazine HCl (Apresoline) 75 mg PO Q6H [facility] Last Admin: 02/01/18 12:26 Dose: 75 mg Hydromorphone HCl (Dilaudid) 2 mg PO Q4 PRN PRN Reason: pain 4-7/10 Hydromorphone HCl (Dilaudid) 4 mg PO Q4 PRN PRN Reason: prn 8-10/10 Insulin Human Lispro (Humalog) 0 units SC ACB [facility] PRN Reason: Protocol Last Admin: 02/01/18 06:35 Dose: Not Given Labetalol HCl (Trandate) 100 mg PO Q12 [facility] Last Admin: 02/01/18 08:25 Dose: 100 mg Losartan Potassium (Cozaar) 100 mg PO DAILY [facility] Last Admin: 02/01/18 10:00 Dose: 100 mg Metformin HCl (Glucophage) 500 mg PO TID [facility] Last Admin: 02/01/18 12:27 Dose: 500 mg Nicotine (Nicoderm Cq) 1 patch TD DAILY [facility] Last Admin: 02/01/18 08:25 Dose: 1 patch Oxycodone HCl (Oxycontin Extended Release Tab) 20 mg PO HS [facility] Last Admin: 01/31/18 21:18 Dose: 20 mg Pantoprazole Sodium (Protonix Ec Tab) 40 mg PO 0600 [facility] Last Admin: 02/01/18 06:06 Dose: 40 mg Sertraline HCl (Zoloft) 50 mg PO HS [facility] Last Admin: 01/31/18 21:17 Dose: 50 mg Results - Vital Signs Recent Vital Signs: Last Vital Signs Temp 97.9 F 02/01/18 07:37 Pulse 78 02/01/18 14:47 Resp 18 02/01/18 07:37 BP 152/57 H 02/01/18 14:47 Pulse Ox 95 02/01/18 07:37 - Labs Result Diagrams: 02/01/18 05:25 02/01/18 05:25 Labs: Laboratory Results - last 24 hr 02/01/18 02/01/18 02/01/18 05:25 05:25 06:05 WBC 5.2 RBC 4.51 Hgb 11.5 L Hct 35.1 MCV 77.8 L MCH 25.5 L MCHC 32.7 L RDW 17.8 H Plt Count 316 Sodium 134 Potassium 3.9 Chloride 94 L Carbon Dioxide 31 H Anion Gap 13 BUN 13 Creatinine 1.0 Est GFR ( Amer) > 60 Est GFR (Non-Af Amer) > 60 POC Glucose (mg/dL) 101 Random Glucose 99 Calcium 9.0
--- NOTE | 2018-02-01 16:23 | CP.PCM.PN ---
Subjective - Date & Time of Evaluation Date of Evaluation: 02/01/18 Time of Evaluation: 10:45 - Subjective Subjective: Patient seen and examined. Constipation relieved with Amitza given to him as samples by his PCP. Objective - Vital Signs/Intake and Output Vital Signs (last 24 hours): Temp Pulse Resp BP Pulse Ox 97.9 F 78 18 152/57 H 95 02/01/18 07:37 02/01/18 14:47 02/01/18 07:37 02/01/18 14:47 02/01/18 07:37 - Medications Medications: Current Medications Acetaminophen (Tylenol 325mg Tab) 650 mg PO Q6 PRN PRN Reason: Fever >100.4 F Last Admin: 01/29/18 19:05 Dose: 650 mg Albuterol/Ipratropium (Duoneb 3 Mg/0.5 Mg (3 Ml) Ud) 3 ml IH RQ6 [facility] Last Admin: 02/01/18 13:09 Dose: 3 ml Alprazolam (Xanax) 0.5 mg PO Q6 PRN PRN Reason: Anxiety Last Admin: 01/29/18 15:01 Dose: 0.5 mg Amlodipine Besylate (Norvasc) 10 mg PO Q12 [facility] Last Admin: 02/01/18 08:26 Dose: 10 mg Atorvastatin Calcium (Lipitor) 10 mg PO HS [facility] Last Admin: 01/31/18 21:17 Dose: 10 mg Clonidine HCl (Catapres) 0.3 mg PO Q8 [facility] Last Admin: 02/01/18 14:47 Dose: 0.3 mg Cyclobenzaprine HCl (Flexeril) 10 mg PO TID PRN PRN Reason: Pain, Mild (1-3) Last Admin: 01/26/18 09:50 Dose: 10 mg Docusate Sodium (Colace) 100 mg PO BID [facility] Last Admin: 02/01/18 08:24 Dose: 100 mg Enoxaparin Sodium (Lovenox) 40 mg SC DAILY [facility] PRN Reason: Protocol Last Admin: 02/01/18 08:26 Dose: 40 mg Furosemide (Lasix) 40 mg PO DAILY [facility] Last Admin: 02/01/18 08:25 Dose: 40 mg Gabapentin (Neurontin) 600 mg PO Q8 [facility] Last Admin: 02/01/18 14:47 Dose: 600 mg Home Med (Lubiprostone [Amitiza]) 24 mcg PO BID [facility] Last Admin: 01/24/18 10:49 Dose: Not Given Hydralazine HCl (Apresoline) 75 mg PO Q6H [facility] Last Admin: 02/01/18 12:26 Dose: 75 mg Hydromorphone HCl (Dilaudid) 2 mg PO Q4 PRN PRN Reason: pain 4-7/10 Hydromorphone HCl (Dilaudid) 4 mg PO Q4 PRN PRN Reason: prn 8-10/10 Insulin Human Lispro (Humalog) 0 units SC ACB [facility] PRN Reason: Protocol Last Admin: 02/01/18 06:35 Dose: Not Given Labetalol HCl (Trandate) 100 mg PO Q12 [facility] Last Admin: 02/01/18 08:25 Dose: 100 mg Losartan Potassium (Cozaar) 100 mg PO DAILY [facility] Last Admin: 02/01/18 10:00 Dose: 100 mg Metformin HCl (Glucophage) 500 mg PO TID [facility] Last Admin: 02/01/18 12:27 Dose: 500 mg Nicotine (Nicoderm Cq) 1 patch TD DAILY [facility] Last Admin: 02/01/18 08:25 Dose: 1 patch Oxycodone HCl (Oxycontin Extended Release Tab) 20 mg PO [facility] Last Admin: 01/31/18 21:18 Dose: 20 mg Pantoprazole Sodium (Protonix Ec Tab) 40 mg PO 0600 [facility] Last Admin: 02/01/18 06:06 Dose: 40 mg Sertraline HCl (Zoloft) 50 mg PO [facility] Last Admin: 01/31/18 21:17 Dose: 50 mg - Labs Labs: 02/01/18 05:25 02/01/18 05:25 - Constitutional Appears: No Acute Distress - Head Exam Head Exam: ATRAUMATIC - Eye Exam Eye Exam: absent: Scleral icterus - ENT Exam ENT Exam: Mucous Membranes Moist - Neck Exam Neck Exam: absent: Full ROM (still on neck post discectomy) - Respiratory Exam Respiratory Exam: absent: Rales, Rhonchi, Wheezes, Respiratory Distress - Cardiovascular Exam Cardiovascular Exam: REGULAR RHYTHM, +S1, +S2 - GI/Abdominal Exam GI & Abdominal Exam: Soft. absent: Tenderness - Rectal Exam Rectal Exam: Deferred - Neurological Exam Neurological Exam: Alert, Oriented x3 - Psychiatric Exam Psychiatric exam: Normal Affect - Skin Skin Exam: Dry, Intact Assessment and Plan - Assessment and Plan (Free Text) Assessment: 67 yo male with history of CAD, DM2, HTN and Prostate Ca underwent anterior discectomy and fusion of C4-5 and C5-6 on 01/15/2018 at [facility] because of cervical degenerative disc disease with severe myeloradiculopathy. An incidental finding of basilar aneurysm was noted at the posterior cerebral and superior cerebellar arteries was noted on imaging. Patient did well post-op and was later transferred to [facility] and admitted in Acute Rehab for therapy on . He was noted to have accelerated HTN on admission so CHEMICAL ENGINEERING TECHNICIAN was called. Patient was transferred to telemetry for observation and management. His BP was controlled. On 01/22/2018 patient was re-admitted to Acute Rehab for continuation of therapy. 1. Cervical Radiculopathy with associated RUE Weakness due to cervical stenosis s/p discectomy with fusion C4-5, C5-6 continue PT in acute rehab still with paresthesias on all limbs but the one on the legs seemed to be improving continue pain management as needed 2. Accelerated hypertension BP stable on 6 BP meds which included Amlodipine, Clonidine, Hydralazine, Labetalol, Losartan and Lasix 3. Gait Imbalance, Ataxia continue PT 4. 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 CAD Continue Lipitor, ASA Heart Healthy Diet 6. DM2 A1C: 6.5 BS well controlled continue Metformin Accuchecks ACHS Moderate Carbohydrate Consistency Diet 7. Chronic Low Back Pain Continue Gabapentin and Ultram 8. Anxiety continue Zoloft 9. Prostate Cancer urinary catheter intact draining bloody urine 10. Constipation continue Colace or Amitza (NF and not approve by pharmacy since it did not have his name on the meds) 11. GI/DVT Prophylaxis continue Protonix and Lovenox
[2018-02-01] MEDS: oxyCODONE 20 mg ER Tab (oxyCONTIN) PO SCH (21:21)
[2018-02-02] MEDS: Albuterol-Ipratrop 3 mg / 0.5 (3 ml) UD IH SCH ×4 (01:01→19:11)
[2018-02-02] MEDS: Pantoprazole 40 mg EC Tab PO SCH (06:10)
[2018-02-02] MEDS: Insulin Lispro (humaLOG) 100 Units/ml Inj SC SCH (07:30)
[2018-02-02] MEDS: Enoxaparin 40 mg Syringe SC SCH (08:32)
--- NOTE | 2018-02-02 13:12 | PSY.TMCNF ---
Nursing - Vital Signs Vital Signs (Last 8 hours): Vital Signs 02/02/18 02/02/18 02/02/18 06:09 06:10 07:45 Temperature 97.7 F Pulse Rate 61 61 59 L Respiratory 20 Rate Blood Pressure 141/72 141/72 135/70 O2 Sat by Pulse 97 Oximetry 02/02/18 02/02/18 02/02/18 08:37 08:38 10:09 Temperature Pulse Rate 65 64 Respiratory Rate Blood Pressure 115/55 L 115/75 128/64 O2 Sat by Pulse Oximetry 02/02/18 11:27 Temperature 97.7 F Pulse Rate 64 Respiratory 20 Rate Blood Pressure 128/64 O2 Sat by Pulse Oximetry Pain: 0 - Precautions: Precautions: Fall Prevention, Cardiac/Pulmonary - Medications/Other Issues Comment: b/p still labile b/p 115-135/55-70 low level of anxiety - Consults Comment: DR Morales,Dr Martell Bhatt - Skin Incision Site: With sterile strip and soft collar Dressing Status: Clean, Dry, Intact Incision: Steri-Strips Intact Incision Line Treatment: Anterior neck I/L covered with steri-strips and tegaderm. Steri-strips dry and tegaderm remain dry and intact. - Toileting Toileting: Supervision - Bladder Management Bladder Pattern: Normal Voiding Method: Toilet, Urinal Bladder Management: Supervision Frequency of Accidents: 0 - Bowel Management Bowel Pattern: Normal Bowel Management: Modified Independent - Transfers Transfers: Supervision - ADL's ADL's: Supervision - Pain Management Comments: on dilaudid for pain on oxycontin at - Patient/Family Teaching Comments: post laminectomy care,medication teaching safety precaution - Goals/Time Frame Comments: as per multidiciplinary plan of care - Provider Provider: scar howard Physical Therapy - Bed Mobility Bed Mobility: Supervision - Transfers Wheelchair to Mat: Supervision Sit to Stand: Supervision - Ambulation Level of Assistance: Supervision Assistive Devices: Wide base quad cane - Stair Negotiation Stairs: Level of Assistance: Verbal Cues, Contact Guard Number of Stairs: 12 Handrails: Right Stairs: Assistive Devices: Wide base quad cane - Standing Balance Static Stand: Supervision Dynamic Stand: Contact Guard Assist - Pain Management Techniques: Medication Comment: occasional R knee and posterior cervical musculature - Insight/Carryover Insight/Carryover: Good - Patient/Family Education Comment: safety - Assessment/Plan Assessment: Pt is a 67 year old R handed male with dx: cervical myelopathy. * Precautions: cervical collar at all times, monitor vitals, spinal precautions, cardiac, DM, fall precautions. transfers/mobility using adaptive equipment. Patient is doing well and is progressing towards his STGs/LTGs. Patient can complete ub adls with supervision and lb adls with cga/min A. patient's transfer status is superivison/cga. pt will continue to benenfit from FM/ROM excercises. Pt may likely need commode, transfer tub bench with back or shower chair pending progress. Goal: Mod I for adls, transfers/mobility, homemaking skills. - Goals Timeframe: 1 week Goals: -FEEDING: Mod I. -GROOMING: I/setup. -UPPER BODY DRESSING: I/setup. - LOWER BODY DRESSING: Supervision/setup. -TOILETING: Supervision. -TRANSFERS:<- >bed, commode, w/c, chair, shower bench and other surfaces with Supervision and verbal cues with RW/ambulatory device. -FUNCTIONAL FINE MOTOR COORDINATION: pt to be abls to fasten buttons/laces with S, 9 hole test results <40 secs each. - Increase R news production supervisor to 70-lbs, L news production supervisor to 65-lbs, B tripod: 15-lbs, B lateral: 17-18- lbs for increase bimanual function/adls. -W/C PROPULSION: 150 feet with Supervision, manage B brakes with Distant S for safe transfers, sit<->stand. - CAREGIVER ED: Pt's caregiver to be I assisting pt with adls, transfers/mobility adhering to safety/cervical precautions. -TOILETING: Supervision with RW/grab bars prn - Provider Therapist: c License Number: [id number] Occupational Therapy - Arousal/Attention/Orientation Level of Consciousness: Awake, Alert Patient Orientation: Person, Place, Time, Appropriate to Age, Appropriate to Situation - ADL/IADL Self Feeding: Set-up Help Grooming: Independent, Set-up Help Bathing-Upper Extremity: Verbal Cues, Set-up Help Bathing-Lower Extremity: Verbal Cues, Set-up Help, Contact Guard Dressing-Upper Extremity: Supervision, Verbal Cues, Set-up Help Dressing-Lower Extremity: Verbal Cues, Set-up Help, Contact Guard, Minimal Assistance - Sitting Balance Static Sitting: Independent without upper extremity support Dynamic Sitting: Reaches across midline, Reaches out of base of support, Reaches within base of support, Requires supervision Comment: seated at edge of bed - Transfers Wheelchair to Bed Transfers: Supervision, Verbal Cues, Set-up Help Toilet Transfers: Supervision, Verbal Cues, Set-up Help, Contact Guard Tub Transfers: Contact Guard Comment: reccommend tub transfer bench - Wheelchair Management Level of Assistance: Supervision, Verbal Cues, Set-up Help - Upper Extremity Status Right Upper Extremity Comment: -R shoulder flexion limited AROM ~0-45, PROM to ~ 0-80; other ranges WFLS Left Upper Extremity Comment: A/PROM is WFLS - Pain Alleviating Techniques: Medication Comment: occasional R knee and posterior cervical musculature - Insight/Carryover Insight/Carryover: Good - Patient/Family Education Comment: safety - Assessment/Plan Assessment: Pt is a 67 year old R handed male with dx: cervical myelopathy. * Precautions: cervical collar at all times, monitor vitals, spinal precautions, cardiac, DM, fall precautions. transfers/mobility using adaptive equipment. Patient is doing well and is progressing towards his STGs/LTGs. Patient can complete ub adls with supervision and lb adls with cga/min A. patient's transfer status is superivison/cga. pt will continue to benenfit from FM/ROM excercises. Pt may likely need commode, transfer tub bench with back or shower chair pending progress. Goal: Mod I for adls, transfers/mobility, homemaking skills. - Goals Timeframe: 1 week Goals: -FEEDING: Mod I. -GROOMING: I/setup. -UPPER BODY DRESSING: I/setup. - LOWER BODY DRESSING: Supervision/setup. -TOILETING: Supervision. -TRANSFERS:<- >bed, commode, w/c, chair, shower bench and other surfaces with Supervision and verbal cues with RW/ambulatory device. -FUNCTIONAL FINE MOTOR COORDINATION: pt to be abls to fasten buttons/laces with S, 9 hole test results <40 secs each. - Increase R news production supervisor to 70-lbs, L news production supervisor to 65-lbs, B tripod: 15-lbs, B lateral: 17-18- lbs for increase bimanual function/adls. -W/C PROPULSION: 150 feet with Supervision, manage B brakes with Distant S for safe transfers, sit<->stand. - CAREGIVER ED: Pt's caregiver to be I assisting pt with adls, transfers/mobility adhering to safety/cervical precautions. -TOILETING: Supervision with RW/grab bars prn - Provider Therapist: HENRY Torrez/Lewis License Number: [id number] Speech Therapy - Plan Assessment: Pt is a 67 year old R handed male with dx: cervical myelopathy. * Precautions: cervical collar at all times, monitor vitals, spinal precautions, cardiac, DM, fall precautions. transfers/mobility using adaptive equipment. Patient is doing well and is progressing towards his STGs/LTGs. Patient can complete ub adls with supervision and lb adls with cga/min A. patient's transfer status is superivison/cga. pt will continue to benenfit from FM/ROM excercises. Pt may likely need commode, transfer tub bench with back or shower chair pending progress. Goal: Mod I for adls, transfers/mobility, homemaking skills. Recreational Therapy - Participation Participation: Participates in Individual and/or Group Sessions, Monitors His/ Her Own Leisure Time - Attendance Attendance: Daily - Activities Leisure Activities: Cards and Games - Socialization Level of Socialization: Initiates/interacts freely with care givers and peer - Diversional Time Diversional Time: watching television, participates in recreation therapy sessions - Assessment Assessment/Plan: Pt is a 67 year old R handed male with dx: cervical myelopathy. *Precautions: cervical collar at all times, monitor vitals, spinal precautions, cardiac, DM, fall precautions. transfers/mobility using adaptive equipment. Patient is doing well and is progressing towards his STGs/ LTGs. Patient can complete ub adls with supervision and lb adls with cga/min A. patient's transfer status is superivison/cga. pt will continue to benenfit from FM/ROM excercises. Pt may likely need commode, transfer tub bench with back or shower chair pending progress. Goal: Mod I for adls, transfers/mobility , homemaking skills. - Provider Therapist: Mercedez Velazquez, WELDER TECH #[id number] Nutrition - Current Diet Current Diet/ Supplement/ Feedings: Moderate consistent CHO heart healthy diet - Appetite Percent Meal Consumed: 75-100% - Comments Comments: post laminectomy care,medication teaching safety precaution - Assessment/Goals/Time Frame Assessment/Goals/Time Frame: b/p still labile b/p 115-135/55-70 low level of anxiety - Provider Provider: Radha Christiansen RD Case Management - Discharge Plan Discharge Plan: Home with significant other/family Rehabilitation Plan - Treatment Plan Treatment Plan: Physical Therapy, Occupational Therapy, Dietary, Pain Management , Patient/Family Education - Recommendation [X]: Pain Management - Discharge Plan Estimated Date of Discharge: 02/04/18 Discharge to: Home
[2018-02-02] MEDS ORDERED: Lidocaine 1% (10 ml) Inj IAA ONE ×2 (13:48→13:55)
[2018-02-02] MEDS ORDERED: Dexamethasone 4 mg/1 ml IAA ONE ×2 (13:48→13:55)
[2018-02-02] MEDS ORDERED: Triamcinolone Acetonide 40 mg/mL Inj IAA ONE ×2 (13:48→13:55)
--- NOTE | 2018-02-02 13:57 | CP.PCM.PN ---
Subjective - Date & Time of Evaluation Date of Evaluation: 02/02/18 Time of Evaluation: 13:55 - Subjective Subjective: Patient seen in the room and is doing much better 0/10 pain in the right knee now I have d/c'd all narcotic pain medication except for night time oxycontin which I reduced to 10mg Will look to d/c neurontin as well He has reduced shoulder AROM, but full PROM. Biceps strength is normal and deltoid strength is good in short arc so appears more like rotator cuff not neurological I will do an injection in the right shoulder to see if there is an increase in ROM Objective - Vital Signs/Intake and Output Vital Signs (last 24 hours): Temp Pulse Resp BP Pulse Ox 97.7 F 60 20 119/54 L 97 02/02/18 11:27 02/02/18 13:00 02/02/18 11:27 02/02/18 13:00 02/02/18 07:45 - Medications Medications: Current Medications Acetaminophen (Tylenol 325mg Tab) 650 mg PO Q6 PRN PRN Reason: Fever >100.4 F Last Admin: 01/29/18 19:05 Dose: 650 mg Albuterol/Ipratropium (Duoneb 3 Mg/0.5 Mg (3 Ml) Ud) 3 ml IH RQ6 [facility] Last Admin: 02/02/18 13:47 Dose: Not Given Alprazolam (Xanax) 0.5 mg PO Q6 PRN PRN Reason: Anxiety Last Admin: 01/29/18 15:01 Dose: 0.5 mg Amlodipine Besylate (Norvasc) 10 mg PO Q12 [facility] Last Admin: 02/02/18 08:38 Dose: 10 mg Atorvastatin Calcium (Lipitor) 10 mg PO HS [facility] Last Admin: 02/01/18 21:19 Dose: 10 mg Clonidine HCl (Catapres) 0.3 mg PO Q8 [facility] Last Admin: 02/02/18 06:09 Dose: 0.3 mg Cyclobenzaprine HCl (Flexeril) 10 mg PO TID PRN PRN Reason: Pain, Mild (1-3) Last Admin: 01/26/18 09:50 Dose: 10 mg Dexamethasone (Decadron Inj) 4 mg IAA ONCE ONE Stop: 02/02/18 13:49 Docusate Sodium (Colace) 100 mg PO BID [facility] Last Admin: 02/02/18 08:33 Dose: 100 mg Enoxaparin Sodium (Lovenox) 40 mg SC DAILY [facility] PRN Reason: Protocol Last Admin: 02/02/18 08:32 Dose: 40 mg Furosemide (Lasix) 40 mg PO DAILY [facility] Last Admin: 02/02/18 08:37 Dose: 40 mg Gabapentin (Neurontin) 600 mg PO Q8 [facility] Last Admin: 02/02/18 06:09 Dose: 600 mg Home Med (Lubiprostone [Amitiza]) 24 mcg PO BID [facility] Last Admin: 01/24/18 10:49 Dose: Not Given Hydralazine HCl (Apresoline) 75 mg PO Q6H [facility] Last Admin: 02/02/18 13:00 Dose: 75 mg Insulin Human Lispro (Humalog) 0 units SC ACB [facility] PRN Reason: Protocol Last Admin: 02/02/18 07:30 Dose: Not Given Labetalol HCl (Trandate) 100 mg PO Q12 [facility] Last Admin: 02/02/18 09:30 Dose: 100 mg Lidocaine HCl (Lidocaine Hydrochloride 1% 10 Ml) 5 ml IAA ONCE ONE Stop: 02/02/18 13:49 Losartan Potassium (Cozaar) 100 mg PO DAILY [facility] Last Admin: 02/02/18 10:09 Dose: 100 mg Metformin HCl (Glucophage) 500 mg PO TID [facility] Last Admin: 02/02/18 13:25 Dose: 500 mg Nicotine (Nicoderm Cq) 1 patch TD DAILY [facility] Last Admin: 02/02/18 08:33 Dose: 1 patch Oxycodone HCl (Oxycontin Extended Release Tab) 10 mg PO HS [facility] Stop: 02/05/18 22:01 Pantoprazole Sodium (Protonix Ec Tab) 40 mg PO 0600 [facility] Last Admin: 02/02/18 06:10 Dose: 40 mg Sertraline HCl (Zoloft) 50 mg PO HS [facility] Last Admin: 02/01/18 21:19 Dose: 50 mg Triamcinolone Acetonide (Kenalog-40 Inj) 40 mg IAA ONCE ONE Stop: 02/02/18 13:49 - Labs Labs: 02/01/18 05:25 02/01/18 05:25
--- NOTE | 2018-02-02 16:14 | CP.PCM.PN ---
Subjective - Date & Time of Evaluation Date of Evaluation: 02/02/18 Time of Evaluation: 16:12 - Subjective Subjective: BP CONTROLLED. PT DENIES MURRELL, DIZZINESS, CP, PALP. Objective - Vital Signs/Intake and Output Vital Signs (last 24 hours): Temp Pulse Resp BP Pulse Ox 97.7 F 68 20 137/63 97 02/02/18 11:27 02/02/18 15:00 02/02/18 11:27 02/02/18 15:00 02/02/18 07:45 - Medications Medications: Current Medications Acetaminophen (Tylenol 325mg Tab) 650 mg PO Q6 PRN PRN Reason: Fever >100.4 F Last Admin: 01/29/18 19:05 Dose: 650 mg Albuterol/Ipratropium (Duoneb 3 Mg/0.5 Mg (3 Ml) Ud) 3 ml IH RQ6 [facility] Last Admin: 02/02/18 13:47 Dose: Not Given Alprazolam (Xanax) 0.5 mg PO Q6 PRN PRN Reason: Anxiety Last Admin: 01/29/18 15:01 Dose: 0.5 mg Amlodipine Besylate (Norvasc) 10 mg PO Q12 [facility] Last Admin: 02/02/18 08:38 Dose: 10 mg Atorvastatin Calcium (Lipitor) 10 mg PO HS [facility] Last Admin: 02/01/18 21:19 Dose: 10 mg Clonidine HCl (Catapres) 0.3 mg PO Q8 [facility] Last Admin: 02/02/18 15:00 Dose: 0.3 mg Cyclobenzaprine HCl (Flexeril) 10 mg PO TID PRN PRN Reason: Pain, Mild (1-3) Last Admin: 01/26/18 09:50 Dose: 10 mg Docusate Sodium (Colace) 100 mg PO BID [facility] Last Admin: 02/02/18 08:33 Dose: 100 mg Enoxaparin Sodium (Lovenox) 40 mg SC DAILY [facility] PRN Reason: Protocol Last Admin: 02/02/18 08:32 Dose: 40 mg Furosemide (Lasix) 40 mg PO DAILY [facility] Last Admin: 02/02/18 08:37 Dose: 40 mg Gabapentin (Neurontin) 600 mg PO Q8 [facility] Last Admin: 02/02/18 15:00 Dose: 600 mg Home Med (Lubiprostone [Amitiza]) 24 mcg PO BID [facility] Last Admin: 01/24/18 10:49 Dose: Not Given Hydralazine HCl (Apresoline) 75 mg PO Q6H [facility] Last Admin: 02/02/18 13:00 Dose: 75 mg Insulin Human Lispro (Humalog) 0 units SC ACB [facility] PRN Reason: Protocol Last Admin: 02/02/18 07:30 Dose: Not Given Labetalol HCl (Trandate) 100 mg PO Q12 [facility] Last Admin: 02/02/18 09:30 Dose: 100 mg Losartan Potassium (Cozaar) 100 mg PO DAILY [facility] Last Admin: 02/02/18 10:09 Dose: 100 mg Metformin HCl (Glucophage) 500 mg PO TID [facility] Last Admin: 02/02/18 13:25 Dose: 500 mg Nicotine (Nicoderm Cq) 1 patch TD DAILY [facility] Last Admin: 02/02/18 08:33 Dose: 1 patch Oxycodone HCl (Oxycontin Extended Release Tab) 10 mg PO [facility] Stop: 02/05/18 22:01 Pantoprazole Sodium (Protonix Ec Tab) 40 mg PO 0600 [facility] Last Admin: 02/02/18 06:10 Dose: 40 mg Sertraline HCl (Zoloft) 50 mg PO [facility] Last Admin: 02/01/18 21:19 Dose: 50 mg - Labs Labs: 02/01/18 05:25 02/01/18 05:25 - Constitutional Appears: Well - Head Exam Head Exam: ATRAUMATIC, NORMAL INSPECTION, NORMOCEPHALIC - Eye Exam Eye Exam: EOMI, Normal appearance, PERRL Pupil Exam: NORMAL ACCOMODATION, PERRL - ENT Exam ENT Exam: Mucous Membranes Moist, Normal Exam - Neck Exam Neck Exam: Tenderness - Respiratory Exam Respiratory Exam: Clear to Ausculation Bilateral, NORMAL BREATHING PATTERN. absent: Accessory Muscle Use, Chest Wall Tenderness, Decreased Breath Sounds, Prolonged Expiratory Phase, Rales, Rhonchi, Wheezes, Respiratory Distress, Stridor - Cardiovascular Exam Cardiovascular Exam: REGULAR RHYTHM, +S1, +S2, Murmur. absent: Bradycardia, Tachycardia, Clicks, Diastolic murmur, Gallop, Irregular Rhythm, JVD, RRR, Rubs , +S4 - GI/Abdominal Exam GI & Abdominal Exam: Soft, Normal Bowel Sounds. absent: Bruit, Distended, Firm , Guarding, Rigid, Tenderness, Diminished Bowel Sounds, Hernia, Hyperactive Bowel Sounds, Hypoactive Bowel Sounds, Organomegaly, Pulsatile Mass, Rebound, Mass - Extremities Exam Extremities Exam: Full ROM, Normal Capillary Refill, Normal Inspection. absent : Calf Tenderness, Joint Swelling, Pedal Edema, Tenderness - Back Exam Back Exam: NORMAL INSPECTION. absent: CVA tenderness (L), CVA tenderness (R), Full ROM, muscle spasm, paraspinal tenderness, rash noted, tenderness, vertebral tenderness - Neurological Exam Neurological Exam: Alert, Awake, CN II-XII Intact, Normal Gait, Oriented x3. absent: Abnormal Gait, Altered, Motor Sensory Deficit, Reflexes Normal - Psychiatric Exam Psychiatric exam: Normal Affect, Normal Mood. absent: Agitated, Anxious, Depressed, Flat Affect, Homicidal Ideation, Manic, Suicidal Ideation - Skin Skin Exam: Dry, Intact, Normal Color, Warm. absent: Abrasion, Cyanosis, Diaphoretic, Erythema, Mottled, Pallor, Pallor, Petechiae, Rash, Urticaria, Vesicles Assessment and Plan (1) Hypertensive urgency Status: Acute (2) Bradycardia, drug induced Status: Acute (3) S/P discectomy Status: Acute (4) Hypokalemia Status: Acute (5) DM2 (diabetes mellitus, type 2) Status: Chronic - Assessment and Plan (Free Text) Plan: BP CONTROLLED. WILL CONTINUE CURRENT MED REGIMENT. PT SHOULD F/U WITHIN 2 WEEKS OF D/C
--- NOTE | 2018-02-02 18:31 | PCM.PROC ---
Procedures Attestation:: I certify that I have explained the specified Operation(s) or Procedure(s), risks, benefits and reasonable alternatives to the Patient and/or other person responsible. The opportunity was given to ask questions and all questions answered - Joint Aspiration/Injection Joint #1 Consent Obtained: Verbal Consent Time Out Performed: Yes Side of Body: Right Joint Aspirated: Shoulder Ultrasound Guidance Used: No Skin Prep: Chlorprep Needle Size Used: 22 G Medication Injected: Triamcinolone Acetate, Methylprednisolone, Lidocaine Patient Tolorated Procedure: Well Complications: None (Minimal response in changing ROM consistent with RCT)
[2018-02-02] MEDS: oxyCODONE 10 mg ER Tab (oxyCONTIN) PO SCH (21:43)
[2018-02-03] MEDS: Albuterol-Ipratrop 3 mg / 0.5 (3 ml) UD IH SCH ×4 (01:17→19:36)
[2018-02-03] MEDS: Pantoprazole 40 mg EC Tab PO SCH (05:57)
[2018-02-03] MEDS: Insulin Lispro (humaLOG) 100 Units/ml Inj SC SCH (07:30)
[2018-02-03] MEDS: Enoxaparin 40 mg Syringe SC SCH (08:16)
--- NOTE | 2018-02-03 10:33 | CP.PCM.PN ---
Subjective - Date & Time of Evaluation Date of Evaluation: 02/03/18 Time of Evaluation: 09:45 - Subjective Subjective: Patient seen and examined. Denied any complaint. Objective - Vital Signs/Intake and Output Vital Signs (last 24 hours): Temp Pulse Resp BP Pulse Ox 97.9 F 57 L 19 135/67 95 02/03/18 07:31 02/03/18 07:31 02/03/18 07:31 02/03/18 08:18 02/03/18 07:31 - Medications Medications: Current Medications Acetaminophen (Tylenol 325mg Tab) 650 mg PO Q6 PRN PRN Reason: Fever >100.4 F Last Admin: 01/29/18 19:05 Dose: 650 mg Albuterol/Ipratropium (Duoneb 3 Mg/0.5 Mg (3 Ml) Ud) 3 ml IH RQ6 [facility] Last Admin: 02/03/18 07:40 Dose: Not Given Alprazolam (Xanax) 0.5 mg PO Q6 PRN PRN Reason: Anxiety Last Admin: 01/29/18 15:01 Dose: 0.5 mg Amlodipine Besylate (Norvasc) 10 mg PO Q12 [facility] Last Admin: 02/03/18 08:15 Dose: 10 mg Atorvastatin Calcium (Lipitor) 10 mg PO HS [facility] Last Admin: 02/02/18 21:28 Dose: 10 mg Clonidine HCl (Catapres) 0.3 mg PO Q8 [facility] Last Admin: 02/03/18 05:57 Dose: 0.3 mg Cyclobenzaprine HCl (Flexeril) 10 mg PO TID PRN PRN Reason: Pain, Mild (1-3) Last Admin: 01/26/18 09:50 Dose: 10 mg Docusate Sodium (Colace) 100 mg PO BID [facility] Last Admin: 02/03/18 08:16 Dose: 100 mg Enoxaparin Sodium (Lovenox) 40 mg SC DAILY [facility] PRN Reason: Protocol Last Admin: 02/03/18 08:16 Dose: 40 mg Furosemide (Lasix) 40 mg PO DAILY [facility] Last Admin: 02/03/18 08:16 Dose: 40 mg Gabapentin (Neurontin) 600 mg PO Q8 [facility] Last Admin: 02/03/18 05:57 Dose: 600 mg Home Med (Lubiprostone [Amitiza]) 24 mcg PO BID [facility] Last Admin: 01/24/18 10:49 Dose: Not Given Hydralazine HCl (Apresoline) 75 mg PO Q6H [facility] Last Admin: 02/03/18 06:04 Dose: 75 mg Insulin Human Lispro (Humalog) 0 units SC ACB [facility] PRN Reason: Protocol Last Admin: 02/02/18 07:30 Dose: Not Given Labetalol HCl (Trandate) 100 mg PO Q12 [facility] Last Admin: 02/03/18 08:18 Dose: 100 mg Losartan Potassium (Cozaar) 100 mg PO DAILY [facility] Last Admin: 02/03/18 08:18 Dose: 100 mg Metformin HCl (Glucophage) 500 mg PO TID [facility] Last Admin: 02/03/18 08:18 Dose: 500 mg Nicotine (Nicoderm Cq) 1 patch TD DAILY [facility] Last Admin: 02/03/18 08:15 Dose: 1 patch Oxycodone HCl (Oxycontin Extended Release Tab) 10 mg PO [facility] Stop: 02/05/18 22:01 Last Admin: 02/02/18 21:43 Dose: 10 mg Pantoprazole Sodium (Protonix Ec Tab) 40 mg PO 0600 [facility] Last Admin: 02/03/18 05:57 Dose: 40 mg Sertraline HCl (Zoloft) 50 mg PO [facility] Last Admin: 02/02/18 21:29 Dose: 50 mg - Labs Labs: 02/01/18 05:25 02/01/18 05:25 - Constitutional Appears: No Acute Distress - Head Exam Head Exam: ATRAUMATIC - Eye Exam Eye Exam: absent: Scleral icterus - ENT Exam ENT Exam: Mucous Membranes Moist - Neck Exam Neck Exam: absent: Meningismus - Respiratory Exam Respiratory Exam: absent: Rales, Rhonchi, Wheezes, Respiratory Distress - Cardiovascular Exam Cardiovascular Exam: REGULAR RHYTHM, +S1, +S2 - GI/Abdominal Exam GI & Abdominal Exam: Soft. absent: Tenderness - Rectal Exam Rectal Exam: Deferred - Back Exam Back Exam: NORMAL INSPECTION - Neurological Exam Neurological Exam: Alert, Oriented x3 - Psychiatric Exam Psychiatric exam: Normal Affect - Skin Skin Exam: Dry, Intact Assessment and Plan - Assessment and Plan (Free Text) Assessment: 67 yo male with history of CAD, DM2, HTN and Prostate Ca underwent anterior discectomy and fusion of C4-5 and C5-6 on 01/15/2018 at [facility] because of cervical degenerative disc disease with severe myeloradiculopathy. 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 Patient did well post-op and was later transferred to [facility] and admitted in Acute Rehab for therapy on 01/20/2018. He was noted to have accelerated HTN on day of admission so BACTERIOLOGY RESEARCH ASSISTANT was called. Patient was transferred to telemetry for observation and management. His BP was controlled. On 01/22/2018 patient was re-admitted to Acute Rehab for continuation of therapy. 1. Cervical Radiculopathy with associated RUE Weakness due to cervical stenosis s/p discectomy with fusion C4-5, C5-6 continue PT in acute rehab 2. Accelerated hypertension BP stable on 6 BP meds which included Amlodipine, Clonidine, Hydralazine, Labetalol, Losartan and Lasix 3. Gait Imbalance, Ataxia continue PT 4. 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 CAD Continue Lipitor, ASA Heart Healthy Diet 6. DM2 A1C: 6.5 BS well controlled continue Metformin Accuchecks ACHS Moderate Carbohydrate Consistency Diet 7. Chronic Low Back Pain Continue Gabapentin and Ultram 8. Anxiety continue Zoloft 9. Constipation continue Colace or Amitza (NF and not approve by pharmacy since it did not have his name on the meds) 10. GI/DVT Prophylaxis continue Protonix and Lovenox
--- NOTE | 2018-02-03 17:26 | PCM.PROC ---
Procedures Attestation:: I certify that I have explained the specified Operation(s) or Procedure(s), risks, benefits and reasonable alternatives to the Patient and/or other person responsible. The opportunity was given to ask questions and all questions answered - Joint Aspiration/Injection Joint #1 Consent Obtained: Verbal Consent Time Out Performed: Yes Side of Body: Left Joint Aspirated: Shoulder Ultrasound Guidance Used: No Skin Prep: Chlorprep Needle Size Used: 22 G Medication Injected: Triamcinolone Acetate, Methylprednisolone, Lidocaine Patient Tolorated Procedure: Well Complications: None
[2018-02-03 19:53] VITALS: TEMP 98.2; O2SAT 98
[2018-02-03] MEDS: oxyCODONE 10 mg ER Tab (oxyCONTIN) PO SCH (21:40)
--- NOTE | 2018-02-03 21:50 | CP.PCM.PN ---
Subjective - Date & Time of Evaluation Date of Evaluation: 02/03/18 Time of Evaluation: 17:00 - Subjective Subjective: PT WITHOUT COMPLAINTS. BP AND HR STABLE. FOR D/C TOMORROW. Objective - Vital Signs/Intake and Output Vital Signs (last 24 hours): Temp Pulse Resp BP Pulse Ox 98.2 F 67 20 135/75 98 02/03/18 19:52 02/03/18 21:31 02/03/18 19:52 02/03/18 21:31 02/03/18 19:52 - Medications Medications: Current Medications Acetaminophen (Tylenol 325mg Tab) 650 mg PO Q6 PRN PRN Reason: Fever >100.4 F Last Admin: 01/29/18 19:05 Dose: 650 mg Albuterol/Ipratropium (Duoneb 3 Mg/0.5 Mg (3 Ml) Ud) 3 ml IH RQ6 [facility] Last Admin: 02/03/18 19:36 Dose: Not Given Alprazolam (Xanax) 0.5 mg PO Q6 PRN PRN Reason: Anxiety Last Admin: 01/29/18 15:01 Dose: 0.5 mg Amlodipine Besylate (Norvasc) 10 mg PO Q12 [facility] Last Admin: 02/03/18 21:31 Dose: 10 mg Atorvastatin Calcium (Lipitor) 10 mg PO HS [facility] Last Admin: 02/03/18 21:32 Dose: 10 mg Clonidine HCl (Catapres) 0.3 mg PO Q8 [facility] Last Admin: 02/03/18 15:01 Dose: 0.3 mg Cyclobenzaprine HCl (Flexeril) 10 mg PO TID PRN PRN Reason: Pain, Mild (1-3) Last Admin: 01/26/18 09:50 Dose: 10 mg Docusate Sodium (Colace) 100 mg PO BID [facility] Last Admin: 02/03/18 17:16 Dose: 100 mg Enoxaparin Sodium (Lovenox) 40 mg SC DAILY [facility] PRN Reason: Protocol Last Admin: 02/03/18 08:16 Dose: 40 mg Furosemide (Lasix) 40 mg PO DAILY [facility] Last Admin: 02/03/18 08:16 Dose: 40 mg Gabapentin (Neurontin) 600 mg PO Q8 [facility] Last Admin: 02/03/18 15:00 Dose: 600 mg Home Med (Lubiprostone [Amitiza]) 24 mcg PO BID [facility] Last Admin: 01/24/18 10:49 Dose: Not Given Hydralazine HCl (Apresoline) 75 mg PO Q6H [facility] Last Admin: 02/03/18 17:16 Dose: 75 mg Insulin Human Lispro (Humalog) 0 units SC ACB [facility] PRN Reason: Protocol Last Admin: 02/03/18 07:30 Dose: Not Given Labetalol HCl (Trandate) 100 mg PO Q12 [facility] Last Admin: 02/03/18 21:28 Dose: 100 mg Losartan Potassium (Cozaar) 100 mg PO DAILY [facility] Last Admin: 02/03/18 08:18 Dose: 100 mg Metformin HCl (Glucophage) 500 mg PO TID [facility] Last Admin: 02/03/18 17:16 Dose: 500 mg Nicotine (Nicoderm Cq) 1 patch TD DAILY [facility] Last Admin: 02/03/18 08:15 Dose: 1 patch Oxycodone HCl (Oxycontin Extended Release Tab) 10 mg PO [facility] Stop: 02/05/18 22:01 Last Admin: 02/03/18 21:40 Dose: 10 mg Pantoprazole Sodium (Protonix Ec Tab) 40 mg PO 0600 [facility] Last Admin: 02/03/18 05:57 Dose: 40 mg Sertraline HCl (Zoloft) 50 mg PO [facility] Last Admin: 02/03/18 21:32 Dose: 50 mg - Labs Labs: 02/01/18 05:25 02/01/18 05:25 - Constitutional Appears: Well - Head Exam Head Exam: ATRAUMATIC, NORMAL INSPECTION, NORMOCEPHALIC - Eye Exam Eye Exam: EOMI, Normal appearance, PERRL. absent: Conjunctival injection, Nystagmus, Periorbital swelling, Periorbital tenderness, Scleral icterus Pupil Exam: NORMAL ACCOMODATION, PERRL - ENT Exam ENT Exam: Mucous Membranes Moist, Normal Exam. absent: Mucous Membranes Dry, Normal External Ear Exam, Normal Oropharynx, TM's Normal Bilaterally - Neck Exam Neck Exam: Full ROM, Normal Inspection. absent: Lymphadenopathy, Meningismus, Tenderness, Thyromegaly - Respiratory Exam Respiratory Exam: Clear to Ausculation Bilateral, NORMAL BREATHING PATTERN. absent: Accessory Muscle Use, Chest Wall Tenderness, Decreased Breath Sounds, Prolonged Expiratory Phase, Rales, Rhonchi, Wheezes, Respiratory Distress, Stridor - Cardiovascular Exam Cardiovascular Exam: Bradycardia, REGULAR RHYTHM, +S1, +S2, Murmur. absent: Tachycardia, Clicks, Diastolic murmur, Gallop, Irregular Rhythm, JVD, RRR, Rubs , +S4 - GI/Abdominal Exam GI & Abdominal Exam: Soft, Normal Bowel Sounds. absent: Bruit, Distended, Firm , Guarding, Rigid, Tenderness, Diminished Bowel Sounds, Hernia, Hyperactive Bowel Sounds, Hypoactive Bowel Sounds, Organomegaly, Pulsatile Mass, Rebound, Mass - Rectal Exam Rectal Exam: Deferred - Extremities Exam Extremities Exam: Full ROM, Normal Capillary Refill, Normal Inspection. absent : Calf Tenderness, Joint Swelling, Pedal Edema, Tenderness - Back Exam Back Exam: NORMAL INSPECTION. absent: CVA tenderness (L), CVA tenderness (R), Full ROM, muscle spasm, paraspinal tenderness, rash noted, tenderness, vertebral tenderness - Neurological Exam Neurological Exam: Alert, Awake, CN II-XII Intact, Normal Gait, Oriented x3. absent: Abnormal Gait, Altered, Motor Sensory Deficit, Reflexes Normal - Psychiatric Exam Psychiatric exam: Normal Affect, Normal Mood. absent: Agitated, Anxious, Depressed, Flat Affect, Homicidal Ideation, Manic, Suicidal Ideation - Skin Skin Exam: Dry, Intact, Normal Color, Warm. absent: Abrasion, Cyanosis, Diaphoretic, Erythema, Mottled, Pallor, Pallor, Petechiae, Rash, Urticaria, Vesicles Assessment and Plan (1) Hypertensive urgency Status: Acute (2) Bradycardia, drug induced Status: Acute (3) S/P discectomy Status: Acute (4) Hypokalemia Status: Acute (5) DM2 (diabetes mellitus, type 2) Status: Chronic - Assessment and Plan (Free Text) Plan: CONTINUE CURRENT MEDICATIONS UPON D/C F/U IN OFFICE IN 2-3 WEEKS. CALL [phone] FOR APPOINTMENT.
[2018-02-04] MEDS: Albuterol-Ipratrop 3 mg / 0.5 (3 ml) UD IH SCH ×2 (03:00→07:37)
[2018-02-04] MEDS: Pantoprazole 40 mg EC Tab PO SCH (06:15)
[2018-02-04 06:19] LABS: HEMOGLOBIN 11.9 g/dL (12.0-18.0); MEAN CELL VOLUME 76.2 fl (80.0-94.0); MEAN CORPUSCULAR HEMOGLOBIN 25.3 pg (27.0-31.0); MEAN CORPUSCULAR HGB CONC 33.2 g/dL (33.0-37.0); RBC 4.71 Mil/uL (4.40-5.90); RED CELL DISTRIBUTION WIDTH 17.6 % (11.5-14.5); WHITE BLOOD COUNT 6.4 K/uL (4.8-10.8)
[2018-02-04 06:29] LABS: BLOOD UREA NITROGEN 21 mg/dl (9-20); CALCIUM 9.4 mg/dL (8.4-10.2); GFR AFRICAN-AMERICAN > 60; GFR NON-AFRICAN AMERICAN > 60
[2018-02-04] MEDS: Insulin Lispro (humaLOG) 100 Units/ml Inj SC SCH (07:04)
[2018-02-04] MEDS: Enoxaparin 40 mg Syringe SC SCH (08:12)
[2018-02-04 08:52] VITALS: RESP 18
[2018-02-04 09:12] VITALS: PULSE 58
--- NOTE | 2018-02-04 12:30 | CP.PCM.DIS ---
Provider - Provider Date of Admission: 01/20/18 13:47 Attending physician: Rony Foster MD Primary care physician: Rogerio Bailey MD Consults: Dr Chucky Moura Time Spent in preparation of Discharge (in minutes): 25 Diagnosis - Discharge Diagnosis (1) S/P discectomy Status: Acute Comment: post discectomy with fusion C4-5, C5-6. continue PT as outpatient (2) Hypertensive urgency Status: Acute Comment: BP stable. continue Amlodipine, Hydralazine, Clonidine, Labetalol. Losartan and Lasix (3) Aneurysm Status: Chronic Comment: follow up with neurointerventionalist (4) DM2 (diabetes mellitus, type 2) Status: Chronic Comment: HgA1C: 6.5. BS controlled. continue Metformin (5) CAD (coronary artery disease) Status: Acute Comment: continue Lipitor and ASA Hospital Course - Lab Results Lab Results: Most Recent Lab Values WBC 6.4 K/uL (4.8-10.8) 02/04/18 05:20 RBC 4.71 Mil/uL (4.40-5.90) 02/04/18 05:20 Hgb 11.9 g/dL (12.0-18.0) L 02/04/18 05:20 Hct 35.9 % (35.0-51.0) 02/04/18 05:20 MCV 76.2 fl (80.0-94.0) L 02/04/18 05:20 MCH 25.3 pg (27.0-31.0) L 02/04/18 05:20 MCHC 33.2 g/dL (33.0-37.0) 02/04/18 05:20 RDW 17.6 % (11.5-14.5) H 02/04/18 05:20 Plt Count 374 K/uL (130-400) 02/04/18 05:20 Sodium 135 mmol/l (132-148) 02/04/18 05:20 Potassium 3.8 MMOL/L (3.6-5.0) 02/04/18 05:20 Chloride 96 mmol/L (98-107) L 02/04/18 05:20 Carbon Dioxide 26 mmol/L (22-30) 02/04/18 05:20 Anion Gap 17 (10-20) 02/04/18 05:20 BUN 21 mg/dl (9-20) H 02/04/18 05:20 Creatinine 0.9 mg/dl (0.8-1.5) 02/04/18 05:20 Est GFR ( Amer) > 60 02/04/18 05:20 Est GFR (Non-Af Amer) > 60 02/04/18 05:20 POC Glucose (mg/dL) 121 mg/dL (65-110) H 02/04/18 05:53 Random Glucose 125 mg/dL (75-110) H 02/04/18 05:20 Calcium 9.4 mg/dL (8.4-10.2) 02/04/18 05:20 Plasma Metanephrine <25 pg/mL (<=57) 01/27/18 05:20 Plasma Normetanephrine 36 pg/mL (<=148) 01/27/18 05:20 Plas Total Metaneph 36 pg/mL (<=205) 01/27/18 05:20 - Hospital Course Hospital Course: 67 yo male with history of CAD, DM2, HTN and Prostate Ca underwent anterior discectomy and fusion of C4-5 and C5-6 on 01/15/2018 at [facility] because of cervical degenerative disc disease with severe myeloradiculopathy. 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 Patient did well post-op and was later transferred to [facility] and admitted in Acute Rehab for therapy on 01/20/2018. He was noted to have accelerated HTN on the day of admission so HYPERBARIC NURSE was called. Patient was transferred to telemetry for observation and management. His BP was controlled. On 01/22/2018 patient was re-admitted to Acute Rehab for continuation of therapy. Patient did well and later on discharged in stable condition. He would continue PT as outpatient. Discharge Exam - Head Exam Head Exam: ATRAUMATIC, NORMAL INSPECTION, NORMOCEPHALIC - Eye Exam Eye Exam: absent: Scleral icterus - ENT Exam ENT Exam: Mucous Membranes Moist - Respiratory Exam Respiratory Exam: absent: Rales, Rhonchi, Wheezes, Respiratory Distress - GI/Abdominal Exam GI & Abdominal Exam: Soft. absent: Tenderness - Rectal Exam Rectal Exam: Deferred - Neurological Exam Neurological exam: Alert, Oriented x3 - Psychiatric Exam Psychiatric exam: Normal Affect - Skin Skin Exam: Dry, Intact Discharge Plan - Discharge Medications Prescriptions: amLODIPine [Norvasc] 10 mg PO Q12 #60 tab Atorvastatin [Lipitor] 10 mg PO HS #30 tab cloNIDine [Catapres] 0.3 mg PO Q8 #90 tab Furosemide [Lasix] 40 mg PO DAILY #30 tablet Gabapentin [Neurontin] 600 mg PO Q8 #90 tablet hydrALAZINE [Apresoline] 75 mg PO Q6 #360 tab Labetalol [Trandate] 100 mg PO BID #60 tab Losartan [Cozaar] 100 mg PO DAILY #30 tab metFORMIN [glucOPHAGE] 500 mg PO TID #90 tab Nicotine 14 mg/24 hr [Nicoderm CQ] 1 patch TD DAILY #14 patch oxyCODONE [oxyCODONE Immediate Release Tab] 10 mg PO HS #5 tab Pantoprazole [Protonix EC Tab] 40 mg PO 0600 #14 ect Sertraline [Zoloft] 50 mg PO HS #30 tab - Follow Up Plan Condition: GOOD Disposition: HOME/ ROUTINE Instructions: Laminectomy, High Blood Pressure (DC), Amlodipine, Clonidine, Furosemide, Gabapentin, Hydralazine, Labetalol, Losartan, Metformin, Nicotine, Oxycodone, Pantoprazole, Spinal Fusion (DC) Referrals: Rogerio Bailey MD [Primary Care Provider] -
[2018-02-04 12:39] VITALS: BP 131/72
== END 2018-02-04 13:20 | disposition home or self-care (01) | DRG 74 ==
LOC: TMPLOALOC 18:38 → UNDODISIN 18:38
PROVIDERS: ADMIT Hospitalist; ATTEND Hospitalist
PROC: F07Z9FZ Gait Training/Functional Ambulation Treatment using Assistive, Adaptive, Supportive or Protective Equipment (ICD-10-PCS; principal; 2018-01-20)
PROC: F08Z4FZ Home Management Treatment using Assistive, Adaptive, Supportive or Protective Equipment (ICD-10-PCS; 2018-01-20)
PROC: F07L6FZ Therapeutic Exercise Treatment of Musculoskeletal System - Lower Back / Lower Extremity using Assistive, Adaptive, Supportive or Protective Equipment (ICD-10-PCS; 2018-01-21)
PROC: 3E0U33Z Introduction of Anti-inflammatory into Joints, Percutaneous Approach (ICD-10-PCS; 2018-02-01)
PROC: 3E0U3BZ Introduction of Anesthetic Agent into Joints, Percutaneous Approach (ICD-10-PCS; 2018-02-01)
DX: M54.12 Radiculopathy, cervical region (principal); M48.02 Spinal stenosis, cervical region; I16.0 Hypertensive urgency; E11.9 Type 2 diabetes mellitus without complications; M50.30 Other cervical disc degeneration, unspecified cervical region; R26.0 Ataxic gait; Z98.890 Other specified postprocedural states; I72.5 Aneurysm of other precerebral arteries; G89.29 Other chronic pain; M25.561 Pain in right knee; M25.511 Pain in right shoulder; F43.22 Adjustment disorder with anxiety; E87.6 Hypokalemia; R00.1 Bradycardia, unspecified; T50.995A Adverse effect of other drugs, medicaments and biological substances, initial encounter; I25.10 Atherosclerotic heart disease of native coronary artery without angina pectoris; K59.00 Constipation, unspecified; F17.210 Nicotine dependence, cigarettes, uncomplicated; M19.90 Unspecified osteoarthritis, unspecified site; Z85.46 Personal history of malignant neoplasm of prostate; Z95.5 Presence of coronary angioplasty implant and graft; Z86.79 Personal history of other diseases of the circulatory system; Z98.1 Arthrodesis status; Z79.84 Long term (current) use of oral hypoglycemic drugs; Y92.239 Unspecified place in hospital as the place of occurrence of the external cause

== ENCOUNTER 2018-01-20 18:48 | Observation (INO) | payer MEDICARE ==
[2018-01-20 18:48] VITALS: BMI 33.6
--- NOTE | 2018-01-20 19:47 | ED PDOC ---
HPI: Hypertension/Hypotension Time Seen by Provider: 01/20/18 19:20 Chief Complaint (Nursing): High Blood Pressure Chief Complaint (Provider): Hypertensive Evaluation History Per: Patient History/Exam Limitations: no limitations Onset/Duration Of Symptoms: Days (today) Current Symptoms Are (Timing): Still Present Associated Symptoms: denies: Chest Pain, Headache Additional Complaint(s): 67 year old male with a past medical history of TIA, DM, CAD, chronic back pain, HTN, prostate CA, decompression of c4 and c5, c5 c6 fusion, cervical stenosis, s/p cervical discectomy presents to the ED with a hypertensive episode onset today. Patient was transferred to rehab and subsequently transferred to ED after Rapid Response Team was called for elevated blood pressure. Rapid Response Team treated patient with labetalol and hydralazine, on arrival to ED blood pressure has improved. He reports numbness in hands but denies chest pain, headache, nausea, vomiting or any other medical complaints. PMD: none provided Past Medical History Reviewed: Historical Data, Nursing Documentation, Vital Signs Vital Signs: Last Vital Signs Temp 98.1 F 01/20/18 18:50 Pulse 96 H 01/20/18 18:50 Resp 16 01/20/18 18:50 BP 172/103 H 01/20/18 18:50 Pulse Ox 100 01/20/18 18:50 - Medical History PMH: Anxiety, Back Problems, COPD, HTN, Hyperlipidemia, Pneumonia Denies: HIV, Chronic Kidney Disease - Surgical History Surgical History: Coronary Stent Denies: Pacemaker - Family History Family History: States: Unknown Family Hx - Social History Current smoker - smoking cessation education provided: No Ex-Smoker (has not smoked in the last 12 months): No Alcohol: None Drugs: Denies - Immunization History Hx Tetanus Toxoid Vaccination: No Hx Influenza Vaccination: No Hx Pneumococcal Vaccination: No - Home Medications Home Medications: Ambulatory Orders Medication Instructions Recorded Furosemide [Lasix] 40 mg PO DAILY 02/19/15 cloNIDine [Catapres] 0.3 mg PO Q8 02/19/15 metFORMIN [glucOPHAGE] 500 mg PO TID 02/19/15 Cyclobenzaprine HCl [Flexeril] 10 mg PO TID PRN #21 tab 07/19/15 Lubiprostone [Amitiza] 24 mcg PO BID 01/07/16 Hydralazine HCl 100 mg PO Q8 01/11/18 Albuterol/Ipratropium [Duoneb 3 3 ml IH [id number] neb 01/20/18 mg/0.5 mg (3 ml) UD] Atorvastatin [Lipitor] 10 mg PO HS 01/20/18 Docusate [Colace] 100 mg PO BID cap 01/20/18 Gabapentin [Neurontin] 300 mg PO Q8 01/20/18 HYDROmorphone [Dilaudid] 0.5 mg IVP Q6H PRN cartridge 01/20/18 Losartan [Cozaar] 100 mg PO DAILY tab 01/20/18 Metoprolol Tartrate [Lopressor] 25 mg PO Q12 01/20/18 Nicotine 14 mg/24 hr [Nicoderm CQ] 1 patch TD DAILY patch 01/20/18 Pantoprazole [Protonix EC Tab] 40 mg PO 0600 ect 01/20/18 Pregabalin [Lyrica] 75 mg PO BID cap 01/20/18 oxyCODONE [oxyCODONE Immediate 5 mg PO Q6H PRN tab 01/20/18 Release Tab] - Allergies Allergies/Adverse Reactions: Allergies Allergy/AdvReac Type Severity Reaction Status Date / Time No Known Allergies Allergy Verified 01/20/18 11:46 Review of Systems ROS Statement: Except As Marked, All Systems Reviewed And Found Negative Constitutional: Positive for: Other (high blood pressure) Neurological: Positive for: Numbness (hand) Physical Exam - Reviewed Nursing Documentation Reviewed: Yes Vital Signs Reviewed: Yes - Physical Exam Appears: Positive for: No Acute Distress Head Exam: Positive for: ATRAUMATIC, NORMOCEPHALIC Skin: Positive for: Normal Color, Warm, Dry Eye Exam: Positive for: Normal appearance Neck: Positive for: Normal, Painless ROM Extremity: Positive for: Normal ROM (upper and lower extremities) Neurologic/Psych: Positive for: Alert, Oriented (x3) - Laboratory Results Result Diagrams: 01/20/18 20:20 01/20/18 20:20 - ECG O2 Sat by Pulse Oximetry: 100 (RA) Pulse Ox Interpretation: Normal Medical Decision Making Medical Decision Making: Time: 20:07 Initial Impression: 67 year old male status post cervical fusion with hypertensive episode Initial Plan: --EKG --CMP --CBC with differentials --PTT --Prothrombin Time: 20:46 --Patient admitted to telemetry unit, case was referred to Dr. Perez. ---- Scribe Attestation: Documented by Norma Locke, acting as a scribe for Gene Smiley MD Provider Scribe Attestation: All medical record entries made by the Scribe were at my direction and personally dictated by me. I have reviewed the chart and agree that the record accurately reflects my personal performance of the history, physical exam, medical decision making, and the department course for this patient. I have also personally directed, reviewed, and agree with the discharge instructions and disposition. Disposition - Clinical Impression Clinical Impression: Uncontrolled hypertension - Patient ED Disposition Is Patient to be Admitted: Yes - Disposition Disposition Time: 20:46 Condition: FAIR - Pt Status Changed To: Hospital Disposition Of: Observation
[2018-01-20 20:27] LABS: BASO # 0.1 K/uL (0.0-0.2); BASO % 1.2 % (0.0-2.0); EOS % 0.6 % (0.0-4.0); HEMOGLOBIN 12.8 g/dL (12.0-18.0); LYMPH # 1.8 K/uL (1.0-4.3); LYMPH % 26.3 % (20.0-40.0); MEAN CELL VOLUME 77.7 fl (80.0-94.0); MEAN CORPUSCULAR HEMOGLOBIN 25.2 pg (27.0-31.0); MEAN CORPUSCULAR HGB CONC 32.4 g/dL (33.0-37.0); MEAN PLATELET VOLUME 9.2 fl (7.2-11.7); MONO % 14.3 % (0.0-10.0); NEUT # 3.9 K/uL (1.8-7.0); NEUT % 57.6 % (50.0-75.0); NRBC % 0.1 % (0.0-0.0); RBC 5.09 Mil/uL (4.40-5.90); RED CELL DISTRIBUTION WIDTH 18.5 % (11.5-14.5); WHITE BLOOD COUNT 6.8 K/uL (4.8-10.8)
[2018-01-20 20:37] LABS: ALBUMIN 4.1 g/dL (3.5-5.0); ALT/SGPT 51 U/L (21-72); AST/SGOT 44 U/L (17-59); BLOOD UREA NITROGEN 15 mg/dl (9-20); CALCIUM 9.4 mg/dL (8.4-10.2); GFR AFRICAN-AMERICAN > 60; GFR NON-AFRICAN AMERICAN > 60
--- NOTE | 2018-01-20 20:37 | CP.PCM.HP ---
History of Present Illness - History of Present Illness History of Present Illness: CC: Hypertensive urgency in rehab HPI: This is a 67 y/o male with MHx significant or cervical disk degenerative disease, CAD/Stents, DM2, poorly controlled HTN, prior treatment for prostate cancer and anxiety. He had been eval at [facility] for worsening RUE weakness and b/l UE parasthesias as well as gait imbalance. A cervical MRI on showed severe spinal stenosis and b/l foraminal stenosis. Patient underwent surgical decompression/disectomy with fusion of C4-5-6. Symptoms improved, and he was sent to acute rehab here in [place]. In rehab, patient was noted to be feeling anxious and c/o L shoulder pain. BP at the time was 180/202. Patient denied MURRELL or CP. Nevertheless, and ORTHOPEDIC CAST SPECIALIST was called, and patient was treated with hydralazine IV and Labetolol IV. BP was still refractory to treatment, so he was sent down to ER for acute mgmt. of his BP. Currently patient has no c/c. PMD: Dr. Bailey ROS: 14 point review of system negative except above MHx: cervical degenerative disc disease, CAD s/p stent, anxiety, prostate cancer s/p tomotherapy (2006), uncontrolled hypertension, diabetes SHx: Tomotherapy (2006), multiple orthopedic surgeries to right knee (1969), s/ p discectomy and fusion C4 C5 C6 Allergies: NKDA Medications: see med rec Family History: Mother- from CVA at age 83; Father- from black lung disease at age 52 Social History: Former smoker (approximately 1 year pack smoking history and quit just last week ), previous alcohol abuse prior to 1989, denies illicit drug abuse; 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 [place] Code status: full code Present on Admission - Present on Admission Any Indicators Present on Admission: No Past Patient History - Infectious Disease Hx of Infectious Diseases: None - Tetanus Immunizations Tetanus Immunization: Unknown - Past Medical History & Family History Past Medical History?: Yes - Past Social History Smoking Status: Light Smoker < 10 Cigarettes Daily Chewing Tobacco Use: No - CARDIAC Hx Hypertension: Yes Hx Pacemaker: No - PULMONARY Hx Chronic Obstructive Pulmonary Disease (COPD): Yes Hx Pneumonia: Yes - NEUROLOGICAL Hx Neurological Disorder: No Hx Paralysis: No - HEENT Hx HEENT Problems: No - RENAL Hx Chronic Kidney Disease: No - ENDOCRINE/METABOLIC Hx Diabetes Mellitus Type 2: Yes - HEMATOLOGICAL/ONCOLOGICAL Hx Human Immunodeficiency Virus (HIV): No - INTEGUMENTARY Hx Dermatological Problems: No - MUSCULOSKELETAL/RHEUMATOLOGICAL Hx Musculoskeletal Disorders: Yes - GASTROINTESTINAL Hx Gastrointestinal Disorders: Yes Hx Constipation: Yes - GENITOURINARY/GYNECOLOGICAL Hx Prostate Cancer: Yes - PSYCHIATRIC Hx Anxiety: Yes - SURGICAL HISTORY Hx Coronary Stent: Yes - ANESTHESIA Hx Anesthesia Reactions: No Hx Malignant Hyperthermia: No Meds Allergies/Adverse Reactions: Allergies Allergy/AdvReac Type Severity Reaction Status Date / Time No Known Allergies Allergy Verified 01/20/18 11:46 Physical Exam - Constitutional Appears: No Acute Distress - Head Exam Head Exam: ATRAUMATIC, NORMOCEPHALIC - Eye Exam Eye Exam: EOMI, PERRL - ENT Exam ENT Exam: Mucous Membranes Moist - Neck Exam Additional comments: in neck collar, limited ROM - Respiratory Exam Respiratory Exam: Clear to Auscultation Bilateral, NORMAL BREATHING PATTERN - Cardiovascular Exam Cardiovascular Exam: REGULAR RHYTHM, +S1, +S2 - GI/Abdominal Exam GI & Abdominal Exam: Normal Bowel Sounds, Soft - Extremities Exam Extremities exam: Positive for: full ROM, normal inspection - Neurological Exam Neurological exam: Alert, CN II-XII Intact, Oriented x3 - Psychiatric Exam Psychiatric exam: Normal Affect, Normal Mood - Skin Skin Exam: Dry, Warm Results - Vital Signs Recent Vital Signs: Last Vital Signs Temp 98.1 F 01/20/18 18:50 Pulse 97 H 01/20/18 20:14 Resp 18 01/20/18 20:14 BP 155/92 H 01/20/18 20:14 Pulse Ox 100 01/20/18 20:14 - Labs Result Diagrams: 01/20/18 20:20 01/20/18 20:20 Assessment & Plan (1) Uncontrolled hypertension Assessment and Plan: 7 year old male with past medical history of cervical degenerative disc disease , CAD s/p stent, anxiety, prostate cancer s/p tomotherapy (2006), uncontrolled hypertension, diabetes, was evaluated at [facility] for worsening progressive, right upper extremity weakness, bilateral upper extremity parathesias and gait imbalance.Cervical MRI (01/09) showed severe spinal stenosis and bilateral foraminal stenosis. Neurology and neurosugery were consulted and he underwent surgical decompression with discectomy with fusion C4, C5, C6 Now transferred to acute rehab for PT. 1. Cervical Radiculopathy with associated RUE Weakness due to cervical stenosis s/p discectomy with fusion C4,5,6 (01/15 ) Will admit to acute rehab for PT/OT physiatry consult with Dr. Morales pain management . Call pain anesthesia consult 2. Uncontrolled BP tight BP control in setting of aneurysms :7 x 6.1mm fusioform aneursym at the basilar tip. 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 CAD s/p PTCA Continue Lipitor aspirin on hold for surgery Heart Healthy Diet 6. Chronic NIDDM2, controlled, A1C 6.5 Hold home Metformin SSI-Low and Accuchecks ACHS Moderate Carbohydrate Consistency Diet 7. History of Chronic lower back pack Continue Flexeril, gabapentin, pain management pain consult 8. Anxiety on Xanax Status: Acute (2) Cervical stenosis of spinal canal Status: Acute (3) DM2 (diabetes mellitus, type 2) Status: Acute (4) Anxiety Status: Acute (5) Aneurysm Status: Acute (6) Back pain Status: Acute (7) DVT prophylaxis Status: Acute
[2018-01-20 20:42] LABS: INR 1.1 (0.9-1.2); PROTHROMBIN TIME 12.5 Seconds (9.8-13.1)
[2018-01-20] MEDS ORDERED: oxyCODONE 5 mg Immediate Release Tab PO PRN (20:42)
[2018-01-20 20:43] LABS: PARTIAL THROMBOPLASTIN TIME 38.3 Seconds (25.6-37.1)
[2018-01-20] MEDS ORDERED: Labetalol 5 mg/ml Inj 20ML IVP PRN (20:46)
[2018-01-20] MEDS ORDERED: Albuterol-Ipratrop 3 mg / 0.5 (3 ml) UD ONE (21:20)
[2018-01-20] MEDS: Albuterol-Ipratrop 3 mg / 0.5 (3 ml) UD IH SCH (21:22)
[2018-01-20] MEDS ORDERED: Insulin Regular 100 units/ml ONE (22:31)
[2018-01-20] MEDS: Insulin Lispro (humaLOG) 100 Units/ml Inj SC SCH (22:32)
[2018-01-21] MEDS ORDERED: HYDRALAZINE HCL 100 MG PO SCH (01:00)
[2018-01-21] MEDS: Albuterol-Ipratrop 3 mg / 0.5 (3 ml) UD IH SCH ×4 (04:35→19:47)
[2018-01-21] MEDS: Insulin Lispro (humaLOG) 100 Units/ml Inj SC SCH ×4 (06:39→21:31)
[2018-01-21] MEDS ORDERED: PREGABALIN 75 MG PO SCH (09:00)
[2018-01-21] MEDS: Pantoprazole 40 mg EC Tab PO SCH (09:09)
--- NOTE | 2018-01-21 09:51 | CP.PCM.PN ---
Subjective - Date & Time of Evaluation Date of Evaluation: 01/21/18 Time of Evaluation: 10:00 - Subjective Subjective: Patient seen and examined bedside. Feeling sad, anxious and worried about his family and his BP. Pain i swell controlled BP still elevated but better Denies any chest pain or SOB. Objective - Vital Signs/Intake and Output Vital Signs (last 24 hours): Temp Pulse Resp BP Pulse Ox 98.6 F 86 18 169/84 H 100 01/21/18 07:58 01/21/18 07:58 01/21/18 07:58 01/21/18 09:07 01/21/18 07:58 Intake and Output: 01/21/18 01/21/18 06:59 18:59 Output Total 400 Balance -400 - Medications Medications: Current Medications Acetaminophen (Tylenol 325mg Tab) 650 mg PO Q6 PRN PRN Reason: Pain, Mild (1-3) Albuterol/Ipratropium (Duoneb 3 Mg/0.5 Mg (3 Ml) Ud) 3 ml IH RQ6 [facility] Last Admin: 01/21/18 07:59 Dose: Not Given Atorvastatin Calcium (Lipitor) 10 mg PO HS [facility] Last Admin: 01/20/18 22:37 Dose: 10 mg Clonidine HCl (Catapres) 0.3 mg PO Q8 [facility] Last Admin: 01/21/18 09:05 Dose: 0.3 mg Cyclobenzaprine HCl (Flexeril) 10 mg PO TID PRN PRN Reason: Pain Docusate Sodium (Colace) 100 mg PO BID [facility] Last Admin: 01/21/18 09:06 Dose: 100 mg Furosemide (Lasix) 20 mg PO DAILY [facility] Last Admin: 01/21/18 09:07 Dose: 20 mg Home Med (Lubiprostone [Amitiza]) 24 mcg PO BID [facility] Hydralazine HCl (Apresoline) 100 mg PO Q8H [facility] Last Admin: 01/21/18 06:25 Dose: 100 mg Insulin Human Lispro (Humalog) 0 units SC ACHS [facility] PRN Reason: Protocol Last Admin: 01/21/18 06:39 Dose: Not Given Labetalol HCl (Trandate) 20 mg IVP Q6H PRN PRN Reason: for SBP > 180 Losartan Potassium (Cozaar) 100 mg PO DAILY [facility] Last Admin: 01/21/18 09:06 Dose: 100 mg Metoprolol Tartrate (Lopressor) 25 mg PO Q12 [facility] Last Admin: 01/21/18 09:07 Dose: 25 mg Nicotine (Nicoderm Cq) 1 patch TD DAILY [facility] Last Admin: 01/21/18 09:08 Dose: 1 patch Oxycodone HCl (Oxycodone Immediate Release Tab) 5 mg PO Q6H PRN PRN Reason: Pain, moderate (4-7) Last Admin: 01/21/18 00:58 Dose: 5 mg Pantoprazole Sodium (Protonix Ec Tab) 40 mg PO 0600 [facility] Last Admin: 01/21/18 09:09 Dose: 40 mg Pregabalin (Lyrica) 75 mg PO BID [facility] Last Admin: 01/21/18 09:13 Dose: 75 mg - Labs Labs: 01/20/18 20:20 01/20/18 20:20 PT 12.5 Seconds (9.8-13.1) 01/20/18 20:20 INR 1.1 (0.9-1.2) 01/20/18 20:20 APTT 38.3 Seconds (25.6-37.1) H 01/20/18 20:20 - Constitutional Appears: Non-toxic, No Acute Distress - Head Exam Head Exam: ATRAUMATIC, NORMAL INSPECTION, NORMOCEPHALIC - Eye Exam Eye Exam: EOMI, Normal appearance, PERRL Pupil Exam: NORMAL ACCOMODATION - ENT Exam ENT Exam: Mucous Membranes Moist, Normal Exam - Neck Exam Additional comments: soft collar present - Respiratory Exam Respiratory Exam: Clear to Ausculation Bilateral, NORMAL BREATHING PATTERN. absent: Rales, Rhonchi, Wheezes - Cardiovascular Exam Cardiovascular Exam: REGULAR RHYTHM, RRR, +S1, +S2. absent: JVD - GI/Abdominal Exam GI & Abdominal Exam: Soft, Normal Bowel Sounds. absent: Distended, Guarding, Tenderness, Rebound - Rectal Exam Rectal Exam: Deferred - Extremities Exam Extremities Exam: Normal Capillary Refill, Normal Inspection. absent: Calf Tenderness, Pedal Edema - Back Exam Back Exam: NORMAL INSPECTION - Neurological Exam Neurological Exam: Alert, Awake, CN II-XII Intact, Oriented x3 - Psychiatric Exam Psychiatric exam: Anxious, Flat Affect - Skin Skin Exam: Dry, Normal Color, Warm Assessment and Plan - Assessment and Plan (Free Text) Assessment: 67 y/o male with PMHx significant or cervical disk degenerative disease s/p recent C4C5C6 discectomy with fusion placed under observation in relemetry for accelerated hypertension. Patient has PMH , CAD/Stents, DM2, poorly controlled HTN, prior treatment for prostate cancer,anxiety and cervical disk degenerative disease s/p recent C4C5C6 discectomy with fusion 01/15. He was evaluated at [facility] for worsening RUE weakness and b/l UE parasthesias as well as gait imbalance. A cervical MRI on 01/09 showed severe spinal stenosis and b/l foraminal stenosis. Patient underwent surgical decompression/disectomy with fusion of C4-5-6. Symptoms improved, and he was sent to acute rehab here in [place]. In rehab, patient was noted to be feeling anxious and c/o L shoulder pain with BP ranging between 220-180 systolic and 101-110 dyastolic and feeling dizzy. He was transferred to telemetry for close monitoring and treatment. 1. Accelerated hypertension continue telemetry monitoring tight BP control in setting of aneurysms :7 x 6.1mm fusioform aneursym at the basilar tip. continue Clonidine, Hydralazine,Metoprolol,lasix,losartan 2. 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 CAD s/p PTCA Continue Lipitor Resume ASA Heart Healthy Diet 6. Chronic NIDDM2, controlled, A1C 6.5 on Metformin SSI-Low and Accuchecks ACHS Moderate Carbohydrate Consistency Diet 7. History of Chronic lower back pack Continue Flexeril, gabapentin, pain management consider pain consult 8. Anxiety psychoiatry consult appreciated d/c Xanax consider starting Zoloft or Cymbalat 9. Hx Prostate Cancer with Urinary Retention 10. Constipation continue home amitiza 11.GI/ DVT Prophylaxis Protonix,lovenox
--- NOTE | 2018-01-21 11:24 | CP.PCM.CON ---
History of Present Illness - History of Present Illness History of Present Illness: Psychiatry consult CC: "I'm anxious" HPI: 67 yo male w/ h/o anxiety, was on Xanax prescribed by PMD, admitted to medicine with hypertensive urgency. Patient reports that he has a history of generalized anxiety. He also reports feeling depressed due to acute medical issues and pain. He denies appetite disturbances, no AH/VH/SI/HI/paranoia/ delusions. He is not certain if he want to take antidepressants to treat his anxiety and depression at this time. 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 PPHx: H/o outpatient psychiatric treatment in the past, no current outpatient tx. No h/o psychiatric hospitalizations. Remote h/o cocaine/alcohol/marijuana use >20 yr ago; now abstinent. PMHx: Cervical degenerative disc disease, CAD s/p stent, \\prostate cancer s/p tomotherapy (2006), uncontrolled hypertension, diabetes SurgHx: Tomotherapy (2006), multiple orthopedic surgeries to right knee (1969), s/p discectomy and fusion C4 C5 C6 Allergies: NKDA Family History: Mother- from CVA at age 83; Father- from black lung disease at age 52 Social History: Former smoker (approximately 1 year pack smoking history and quit just last week ), previous alcohol abuse prior to 1989, denies illicit drug abuse; Works as a [employer] in [employer] MSE: A + O x 3, calm, cooperative, good eye contact, mood "depressed", affect- full range/broad; thought content- no delusions, though process- circumstantial at times/coherent, no AH/VH/SI/HI; fair I/J Impression: 67 yo male w/ h/o Generalized anxiety disorder, now w/ adjustment disorder w/ mixed anxiety and depression. Patient is not certain if he wants to take antidepressant medication at this time. Recommendations: -Stop Xanax; would not recommend treatment with any benzodiazepines due side effect profile -Can consider treatment with antidepressants if patient is agreeable and there are no contraindications; can consider Zoloft 50 mg PO Daily or Cymbalta 60 mg PO Daily -No acute inpatient psychiatric admission indicated at this time Past Patient History - Infectious Disease Hx of Infectious Diseases: None - Tetanus Immunizations Tetanus Immunization: Unknown - Past Medical History & Family History Past Medical History?: Yes - Past Social History Alcohol: None Drugs: Denies - CARDIAC Hx Hypertension: Yes Hx Pacemaker: No - PULMONARY Hx Chronic Obstructive Pulmonary Disease (COPD): Yes Hx Pneumonia: Yes - NEUROLOGICAL Hx Neurological Disorder: No Hx Paralysis: No - HEENT Hx HEENT Problems: No - RENAL Hx Chronic Kidney Disease: No - ENDOCRINE/METABOLIC Hx Endocrine Disorders: Yes Hx Diabetes Mellitus Type 2: Yes - HEMATOLOGICAL/ONCOLOGICAL Hx Human Immunodeficiency Virus (HIV): No - INTEGUMENTARY Hx Dermatological Problems: No - MUSCULOSKELETAL/RHEUMATOLOGICAL Hx Musculoskeletal Disorders: Yes Hx Degenerative Joint Disease: Yes Hx Falls: No - GASTROINTESTINAL Hx Gastrointestinal Disorders: Yes Hx Constipation: Yes - GENITOURINARY/GYNECOLOGICAL Hx Genitourinary Disorders: Yes Hx Prostate Cancer: Yes - PSYCHIATRIC Hx Anxiety: Yes - SURGICAL HISTORY Hx Coronary Stent: Yes - ANESTHESIA Hx Anesthesia: Yes Hx Anesthesia Reactions: No Hx Malignant Hyperthermia: No Meds Allergies/Adverse Reactions: Allergies Allergy/AdvReac Type Severity Reaction Status Date / Time No Known Allergies Allergy Verified 01/20/18 11:46 - Medications Medications: Current Medications Acetaminophen (Tylenol 325mg Tab) 650 mg PO Q6 PRN PRN Reason: Pain, Mild (1-3) Albuterol/Ipratropium (Duoneb 3 Mg/0.5 Mg (3 Ml) Ud) 3 ml IH RQ6 [facility] Last Admin: 01/21/18 07:59 Dose: Not Given Atorvastatin Calcium (Lipitor) 10 mg PO HS [facility] Last Admin: 01/20/18 22:37 Dose: 10 mg Clonidine HCl (Catapres) 0.3 mg PO Q8 [facility] Last Admin: 01/21/18 09:05 Dose: 0.3 mg Cyclobenzaprine HCl (Flexeril) 10 mg PO TID PRN PRN Reason: Pain Docusate Sodium (Colace) 100 mg PO BID [facility] Last Admin: 01/21/18 09:06 Dose: 100 mg Furosemide (Lasix) 20 mg PO DAILY [facility] Last Admin: 01/21/18 09:07 Dose: 20 mg Home Med (Lubiprostone [Amitiza]) 24 mcg PO BID [facility] Hydralazine HCl (Apresoline) 100 mg PO Q8H [facility] Last Admin: 01/21/18 06:25 Dose: 100 mg Insulin Human Lispro (Humalog) 0 units SC ACHS [facility] PRN Reason: Protocol Last Admin: 01/21/18 06:39 Dose: Not Given Labetalol HCl (Trandate) 20 mg IVP Q6H PRN PRN Reason: for SBP > 180 Losartan Potassium (Cozaar) 100 mg PO DAILY [facility] Last Admin: 01/21/18 09:06 Dose: 100 mg Metoprolol Tartrate (Lopressor) 25 mg PO Q12 [facility] Last Admin: 01/21/18 09:07 Dose: 25 mg Nicotine (Nicoderm Cq) 1 patch TD DAILY [facility] Last Admin: 01/21/18 09:08 Dose: 1 patch Oxycodone HCl (Oxycodone Immediate Release Tab) 5 mg PO Q6H PRN PRN Reason: Pain, moderate (4-7) Last Admin: 01/21/18 00:58 Dose: 5 mg Pantoprazole Sodium (Protonix Ec Tab) 40 mg PO 0600 [facility] Last Admin: 01/21/18 09:09 Dose: 40 mg Pregabalin (Lyrica) 75 mg PO BID [facility] Last Admin: 01/21/18 09:13 Dose: 75 mg Results - Vital Signs Recent Vital Signs: Last Vital Signs Temp 98.6 F 01/21/18 07:58 Pulse 86 01/21/18 07:58 Resp 18 01/21/18 07:58 BP 169/84 H 01/21/18 09:07 Pulse Ox 100 01/21/18 07:58 - Labs Result Diagrams: 01/20/18 20:20 01/20/18 20:20 Labs: Laboratory Results - last 24 hr 01/20/18 01/20/18 01/20/18 20:20 20:20 20:20 WBC 6.8 RBC 5.09 Hgb 12.8 Hct 39.6 MCV 77.7 L MCH 25.2 L MCHC 32.4 L RDW 18.5 H Plt Count 288 MPV 9.2 Neut % (Auto) 57.6 Lymph % (Auto) 26.3 Traverse % (Auto) 14.3 H Eos % (Auto) 0.6 Baso % (Auto) 1.2 Neut # (Auto) 3.9 Lymph # (Auto) 1.8 Traverse # (Auto) 1.0 H Eos # (Auto) 0.0 Baso # (Auto) 0.1 PT 12.5 INR 1.1 APTT 38.3 H Sodium 142 Potassium 3.5 L Chloride 94 L Carbon Dioxide 37 H Anion Gap 15 BUN 15 Creatinine 0.8 Est GFR ( Amer) > 60 Est GFR (Non-Af Amer) > 60 POC Glucose (mg/dL) Random Glucose 137 H Calcium 9.4 Total Bilirubin 0.7 AST 44 ALT 51 Alkaline Phosphatase 95 Troponin I < 0.0120 Total Protein 8.1 Albumin 4.1 Globulin 3.9 Albumin/Globulin Ratio 1.0 01/20/18 01/21/18 01/21/18 22:31 05:29 09:03 WBC RBC Hgb Hct MCV MCH MCHC RDW Plt Count MPV Neut % (Auto) Lymph % (Auto) Traverse % (Auto) Eos % (Auto) Baso % (Auto) Neut # (Auto) Lymph # (Auto) Traverse # (Auto) Eos # (Auto) Baso # (Auto) PT INR APTT Sodium Potassium Chloride Carbon Dioxide Anion Gap BUN Creatinine Est GFR ( Amer) Est GFR (Non-Af Amer) POC Glucose (mg/dL) 112 H 117 H 141 H Random Glucose Calcium Total Bilirubin AST ALT Alkaline Phosphatase Troponin I Total Protein Albumin Globulin Albumin/Globulin Ratio 01/21/18 11:18 WBC RBC Hgb Hct MCV MCH MCHC RDW Plt Count MPV Neut % (Auto) Lymph % (Auto) Traverse % (Auto) Eos % (Auto) Baso % (Auto) Neut # (Auto) Lymph # (Auto) Traverse # (Auto) Eos # (Auto) Baso # (Auto) PT INR APTT Sodium Potassium Chloride Carbon Dioxide Anion Gap BUN Creatinine Est GFR ( Amer) Est GFR (Non-Af Amer) POC Glucose (mg/dL) 141 H Random Glucose Calcium Total Bilirubin AST ALT Alkaline Phosphatase Troponin I Total Protein Albumin Globulin Albumin/Globulin Ratio
--- NOTE | 2018-01-21 12:02 | CARD ---
APPROVED REPORT EKG Measurement Heart [id number] <Conclusion> Normal sinus rhythm Possible Left atrial enlargement Borderline ECG
[2018-01-21] MEDS: Enoxaparin 40 mg Syringe SC SCH (18:54)
[2018-01-22] MEDS: Albuterol-Ipratrop 3 mg / 0.5 (3 ml) UD IH SCH ×4 (01:29→19:15)
[2018-01-22] MEDS: HYDROmorphone 0.5 mg/0.5 ml ISec IVP PRN ×3 (03:12→17:51)
[2018-01-22] MEDS: Pantoprazole 40 mg EC Tab PO SCH (05:04)
[2018-01-22] MEDS: Insulin Lispro (humaLOG) 100 Units/ml Inj SC SCH ×3 (06:44→17:17)
[2018-01-22] MEDS: Enoxaparin 40 mg Syringe SC SCH (09:19)
[2018-01-22 16:35] VITALS: BP 133/80; PULSE 75; RESP 16; TEMP 98.8; O2SAT 97
--- NOTE | 2018-01-22 16:57 | CP.PCM.CON ---
History of Present Illness - History of Present Illness History of Present Illness: ASKED TO SEE PATIENT FOR HYPERTENSIVE URGENCY AND MURRELL'S. PT DENIES SOB, CP, PALP , LH, N/V/D/C, BLURRY VISION, DOUBLE VISION, LH, SYNCOPE. PT IS S/P CERVICAL FUSION. PTS BP IS LABILE WITH PERIODS OF BP ELEVATION OF >200/100. PT HAS BEEN ON 5 ANTI-HTN MEDS FOR GREATER THAN 10 YEARS. Review of Systems - Constitutional Constitutional: As Per HPI, Headache. absent: Anorexia, Chills, Daytime Sleepiness, Excessive Sweating, Fatigue, Fever, Frequent Falls, Increased Appetite, Lethargy, Malaise, Night Sweats, Snoring, Sleep Apnea, Weight Gain, Weight Loss, Weakness, Other - EENT Eyes: As Per HPI. absent: Blind Spots, Blurred Vision, Change in Vision, Decreased Night Vision, Diplopia, Discharge, Dry Eye, Exophthalmos, Floaters, Irritation, Itchy Eyes, Loss of Peripheral Vision, Pain, Photophobia, Requires Corrective Lenses, Sees Flashes, Spots in Vision, Tunnel Vision, Other Visual Disturbances, Loss of Vision, Other Ears: As Per HPI. absent: Decreased Hearing, Ear Discharge, Ear Pain, Tinnitus , Abnormal Hearing, Disequilibrium, Dizziness, Other Nose/Mouth/Throat: As Per HPI. absent: Epistaxis, Nasal Congestion, Nasal Discharge, Nasal Obstruction, Nasal Trauma, Nose Pain, Post Nasal Drip, Sinus Pain, Sinus Pressure, Bleeding Gums, Change in Voice, Dental Pain, Dry Mouth, Dysphagia, Halitosis, Hoarsness, Lip Swelling, Mouth Lesions, Mouth Pain, Odynophagia, Sore Throat, Throat Swelling, Tongue Swelling, Facial Pain, Neck Pain, Neck Mass, Other - Cardiovascular Cardiovascular: As Per HPI. absent: Acrocyanosis, Chest Pain, Chest Pain at Rest, Chest Pain with Activity, Claudication, Diaphoresis, Dyspnea, Dyspnea on Exertion, Edema, Irregular Heart Rhythm, Pain Radiating to Arm/Neck/Jaw, Leg Edema, Leg Ulcers, Lightheadedness, Orthopnea, Palpitations, Paroxysmal Nocturnal Dyspnea, Pedal Edema, Radiating Pain, Rapid Heart Rate, Slow Heart Rate, Syncope, Other - Respiratory Respiratory: As Per HPI. absent: Cough, Dyspnea, Hemoptysis, Dyspnea on Exertion, Wheezing, Snoring, Stridor, Pain on Inspiration, Chest Congestion, Excessive Mucous Production, Change in Mucous Color, Pain with Coughing, Other - Gastrointestinal Gastrointestinal: As Per HPI. absent: Abdominal Pain, Belching, Bloating, Change in Bowel Habits, Change in Stool Character, Coffee Ground Emesis, Constipation, Cramping, Diarrhea, Dyspepsia, Dysphagia, Early Satiety, Excessive Flatus, Fecal Incontinence, Heartburn, Hematemesis, Hematochezia, Loose Stools, Melena, Nausea, Odynophagia, Temesmus, Vomiting, Other - Genitourinary Genitourinary: As Per HPI. absent: Change in Urinary Stream, Difficulty Urinating, Dysuria, Flank Pain, Hematuria, Pyuria, Nocturia, Urinary Incontinence, Urinary Frequency, Urinary Hesitance, Urinary Urgency, Voiding Freq/Small Amts, Freq UTI, Hx Renal/Bladder Calculi, Hx /Renal Surgery, Bladder Distension, Other - Reproductive: Male Reproductive:Male: As Per HPI - Musculoskeletal Musculoskeletal: As Per HPI, Neck Pain. absent: Abnormal Gait, Arthralgias, Atrophy, Back Pain, Deformity, Joint Swelling, Limited Range of Motion, Loss of Height, Muscle Cramps, Muscle Weakness, Myalgias, Numbness, Radiating Pain into Limb, Stiffness, Tingling, Other - Integumentary Integumentary: As Per HPI. absent: Acne, Alopecia, Bleeding Lesions, Change in Hair, Change in Nails, Change in Pigmentation, Changing Lesions, Dry Skin, Erythema, Furuncle, Hirsutism, Lesions, New Lesions, Non-Healing Lesions, Photosensitivity, Pruritus, Rash, Skin Pain, Skin Ulcer, Sores, Striae, Swelling , Unusual Bruising, Wounds, Jaundice, Other - Neurological Neurological: As Per HPI. absent: Abnormal Gait, Abnormal Hearing, Abnormal Movements, Abnormal Speech, Behavioral Changes, Burning Sensations, Confusion, Convulsions, Disequilibrium, Dizziness, Numbness, Focal Weakness, Frequent Falls , Headaches, Lack of Coordination, Loss of Vision, Memory Loss, Paresthesias, Radicular Pain, Restless Legs, Sensory Deficit, Syncope, Tingling, Tremor, Vertigo, Weakness, Other Visual Disturbances, Other - Psychiatric Psychiatric: As Per HPI. absent: Abnormal Sleep Pattern, Anhedonia, Anxiety, Auditory Hallucinations, Behavioral Changes, Change in Appetite, Change in Libido, Confusion, Depression, Difficulty Concentrating, Hallucinations, Homicidal Ideation, Hopelessness, Irritability, Memory Loss, Mood Swings, Panic Attacks, Paranoia, Suicidal Ideation, Visual Hallucinations, Tactile Hallucinations, Other - Endocrine Endocrine: As Per HPI. absent: Change in Body Appearance, Change in Libido, Cold Intolorance, Deepening of Voice, Excessive Sweating, Fatigue, Flushing, Heat Intolorance, Increase in Ring/Shoe/Hat Size, Palpitations, Polydipsia, Polyphagia, Polyuria, Other - Hematologic/Lymphatic Hematologic: As Per HPI. absent: Easy Bleeding, Easy Bruising, Lymphadenopathy , Other Past Patient History - Infectious Disease Hx of Infectious Diseases: None - Tetanus Immunizations Tetanus Immunization: Unknown - Past Medical History & Family History Past Medical History?: Yes - Past Social History Alcohol: None Drugs: Denies - CARDIAC Hx Hypertension: Yes Hx Hypotension: Yes Hx Pacemaker: No - PULMONARY Hx Chronic Obstructive Pulmonary Disease (COPD): Yes Hx Pneumonia: Yes - NEUROLOGICAL Hx Neurological Disorder: No Hx Paralysis: No - HEENT Hx HEENT Problems: No - RENAL Hx Chronic Kidney Disease: No - ENDOCRINE/METABOLIC Hx Endocrine Disorders: Yes Hx Diabetes Mellitus Type 2: Yes - HEMATOLOGICAL/ONCOLOGICAL Hx Human Immunodeficiency Virus (HIV): No - INTEGUMENTARY Hx Dermatological Problems: No - MUSCULOSKELETAL/RHEUMATOLOGICAL Hx Musculoskeletal Disorders: Yes Hx Degenerative Joint Disease: Yes Hx Falls: No - GASTROINTESTINAL Hx Gastrointestinal Disorders: Yes Hx Constipation: Yes - GENITOURINARY/GYNECOLOGICAL Hx Genitourinary Disorders: Yes Hx Prostate Cancer: Yes - PSYCHIATRIC Hx Anxiety: Yes - SURGICAL HISTORY Hx Coronary Stent: Yes - ANESTHESIA Hx Anesthesia: Yes Hx Anesthesia Reactions: No Hx Malignant Hyperthermia: No Meds Home Medications: Home Medication List Medication Instructions Recorded Confirmed Type Acetaminophen [Tylenol 325mg tab] 650 mg PO Q6 PRN tab 01/22/18 Rx Enoxaparin [Lovenox] 40 mg SC DAILY syr 01/22/18 Rx Labetalol [Trandate] 100 mg PO BID tab 01/22/18 Rx amLODIPine [Norvasc] 5 mg PO Q12 tab 01/22/18 Rx Allergies/Adverse Reactions: Allergies Allergy/AdvReac Type Severity Reaction Status Date / Time No Known Allergies Allergy Verified 01/20/18 11:46 - Medications Medications: Current Medications Acetaminophen (Tylenol 325mg Tab) 650 mg PO Q6 PRN PRN Reason: Pain, Mild (1-3) Albuterol/Ipratropium (Duoneb 3 Mg/0.5 Mg (3 Ml) Ud) 3 ml IH RQ6 [facility] Last Admin: 01/22/18 13:22 Dose: Not Given Aspirin (Aspirin Chewable) 81 mg PO DAILY [facility] Last Admin: 01/22/18 09:13 Dose: 81 mg Atorvastatin Calcium (Lipitor) 10 mg PO HS [facility] Last Admin: 01/21/18 21:14 Dose: 10 mg Clonidine HCl (Catapres) 0.3 mg PO Q8 [facility] Last Admin: 01/22/18 16:24 Dose: 0.3 mg Cyclobenzaprine HCl (Flexeril) 10 mg PO TID PRN PRN Reason: Pain Docusate Sodium (Colace) 100 mg PO BID [facility] Last Admin: 01/22/18 16:22 Dose: 100 mg Enoxaparin Sodium (Lovenox) 40 mg SC DAILY [facility] PRN Reason: Protocol Last Admin: 01/22/18 09:19 Dose: 40 mg Furosemide (Lasix) 20 mg PO DAILY [facility] Last Admin: 01/22/18 09:18 Dose: 20 mg Gabapentin (Neurontin) 300 mg PO Q8 [facility] Last Admin: 01/22/18 16:28 Dose: 300 mg Home Med (Lubiprostone [Amitiza]) 24 mcg PO BID [facility] Hydromorphone HCl (Dilaudid) 0.5 mg IVP Q6H PRN PRN Reason: Pain, severe (8-10) Last Admin: 01/22/18 11:21 Dose: 0.5 mg Insulin Human Lispro (Humalog) 0 units SC [facility] PRN Reason: Protocol Last Admin: 01/22/18 12:28 Dose: 2 unit Labetalol HCl (Trandate) 20 mg IVP Q6H PRN PRN Reason: for SBP > 180 Losartan Potassium (Cozaar) 100 mg PO DAILY [facility] Last Admin: 01/22/18 09:17 Dose: 100 mg Metformin HCl (Glucophage) 500 mg PO TID [facility] Last Admin: 01/22/18 16:26 Dose: 500 mg Nicotine (Nicoderm Cq) 1 patch TD DAILY [facility] Last Admin: 01/22/18 09:33 Dose: Not Given Oxycodone HCl (Oxycodone Immediate Release Tab) 5 mg PO Q6H PRN PRN Reason: Pain, moderate (4-7) Last Admin: 01/21/18 00:58 Dose: 5 mg Pantoprazole Sodium (Protonix Ec Tab) 40 mg PO 0600 [facility] Last Admin: 01/22/18 05:04 Dose: 40 mg Pregabalin (Lyrica) 75 mg PO BID [facility] Last Admin: 01/22/18 16:29 Dose: 75 mg Spironolactone (Aldactone) 12.5 mg PO DAILY [facility] Last Admin: 01/22/18 12:25 Dose: 12.5 mg Physical Exam - Constitutional Appears: Well - Head Exam Head Exam: ATRAUMATIC, NORMAL INSPECTION, NORMOCEPHALIC - Eye Exam Eye Exam: EOMI, Normal appearance, PERRL. absent: Conjunctival injection, Nystagmus, Periorbital swelling, Periorbital tenderness, Scleral icterus Pupil Exam: NORMAL ACCOMODATION, PERRL. absent: Fixed, Irregular, Miosis, Mydriatic, Unequal - ENT Exam ENT Exam: Mucous Membranes Moist, Normal Exam. absent: Mucous Membranes Dry, Normal External Ear Exam, Normal Oropharynx, TM's Normal Bilaterally - Neck Exam Additional comments: NECK COLLAR IN PLACE. - Respiratory Exam Respiratory Exam: Clear to Auscultation Bilateral, NORMAL BREATHING PATTERN. absent: Accessory Muscle Use, Chest Wall Tenderness, Decreased Breath Sounds, Prolonged Expiratory Phase, Rales, Rhonchi, Wheezes, Respiratory Distress, Stridor - Cardiovascular Exam Cardiovascular Exam: Bradycardia, REGULAR RHYTHM, +S1, +S2, Systolic Murmur. absent: Tachycardia, Clicks, Diastolic murmur, Gallop, Irregular Rhythm, JVD, RRR, Rubs, +S4 Additional comments: HR 55 DUE TO MEDS - GI/Abdominal Exam GI & Abdominal Exam: Normal Bowel Sounds, Soft. absent: Bruit, Diminished Bowel Sounds, Distended, Firm, Guarding, Hernia, Hyperactive Bowel Sounds, Hypoactive Bowel Sounds, Mass, Organomegaly, Pulsatile Mass, Rebound, Rigid, Tenderness - Rectal Exam Rectal Exam: Deferred. absent: Black Stool, Bloody Stool, Hemorrhoids, Fecal Impaction, NORMAL INSPECTION - Extremities Exam Extremities exam: Positive for: normal inspection. Negative for: calf tenderness, full ROM, joint swelling, normal capillary refill, pedal edema, tenderness, pedal pulses present - Back Exam Back exam: NORMAL INSPECTION. absent: CVA tenderness (L), CVA tenderness (R), FULL ROM, muscle spasm, paraspinal tenderness, rash noted, tenderness, vertebral tenderness - Neurological Exam Neurological exam: Alert, CN II-XII Intact, Normal Gait, Oriented x3, Reflexes Normal - Psychiatric Exam Psychiatric exam: Normal Affect, Normal Mood - Skin Skin Exam: Dry, Intact, Normal Color, Warm Results - Vital Signs Recent Vital Signs: Last Vital Signs Temp 98.8 F 01/22/18 16:34 Pulse 75 01/22/18 16:34 Resp 16 01/22/18 16:34 BP 133/80 01/22/18 16:34 Pulse Ox 97 01/22/18 16:34 - Labs Result Diagrams: 01/20/18 20:20 01/20/18 20:20 Labs: Laboratory Results - last 24 hr 01/21/18 01/22/18 01/22/18 21:29 05:48 10:47 POC Glucose (mg/dL) 144 H 112 H 165 H 01/22/18 16:24 POC Glucose (mg/dL) 131 H - EKG Data EKG Interpreted by: Myself EKG shows normal: Sinus rhythm Rate: Normal Assessment & Plan (1) Uncontrolled hypertension Status: Acute (2) Anxiety Status: Chronic (3) DM2 (diabetes mellitus, type 2) Status: Chronic - Assessment and Plan (Free Text) Plan: change bb to labetalol 100 bid, norvasc to 5 mg bid, increase hydralazine to 100 q6. monitor for bradycardia and hypotension. control pain. consider low dose kcl as pt is on lasix.
--- NOTE | 2018-01-22 17:37 | CP.PCM.DIS ---
Provider - Provider Date of Admission: 01/20/18 20:46 Attending physician: Asa Perez MD Primary care physician: Dr Bailey Consults: Cardio: Dr Bhatt Time Spent in preparation of Discharge (in minutes): 45 Diagnosis - Discharge Diagnosis (1) Hypertensive urgency Status: Acute (2) Cervical stenosis of spinal canal Status: Chronic (3) S/P discectomy Status: Acute (4) Aneurysm Status: Chronic (5) Anxiety Status: Chronic (6) Back pain Status: Chronic (7) DM2 (diabetes mellitus, type 2) Status: Chronic (8) Hypokalemia Status: Acute (9) DVT prophylaxis Status: Acute Hospital Course - Lab Results Lab Results: Most Recent Lab Values WBC 6.8 K/uL (4.8-10.8) 01/20/18 20:20 RBC 5.09 Mil/uL (4.40-5.90) 01/20/18 20:20 Hgb 12.8 g/dL (12.0-18.0) 01/20/18 20:20 Hct 39.6 % (35.0-51.0) 01/20/18 20:20 MCV 77.7 fl (80.0-94.0) L 01/20/18 20:20 MCH 25.2 pg (27.0-31.0) L 01/20/18 20:20 MCHC 32.4 g/dL (33.0-37.0) L 01/20/18 20:20 RDW 18.5 % (11.5-14.5) H 01/20/18 20:20 Plt Count 288 K/uL (130-400) 01/20/18 20:20 MPV 9.2 fl (7.2-11.7) 01/20/18 20:20 Neut % (Auto) 57.6 % (50.0-75.0) 01/20/18 20:20 Lymph % (Auto) 26.3 % (20.0-40.0) 01/20/18 20:20 [place] % (Auto) 14.3 % (0.0-10.0) H 01/20/18 20:20 Eos % (Auto) 0.6 % (0.0-4.0) 01/20/18 20:20 Baso % (Auto) 1.2 % (0.0-2.0) 01/20/18 20:20 Neut # (Auto) 3.9 K/uL (1.8-7.0) 01/20/18 20:20 Lymph # (Auto) 1.8 K/uL (1.0-4.3) 01/20/18 20:20 [place] # (Auto) 1.0 K/uL (0.0-0.8) H 01/20/18 20:20 Eos # (Auto) 0.0 K/uL (0.0-0.7) 01/20/18 20:20 Baso # (Auto) 0.1 K/uL (0.0-0.2) 01/20/18 20:20 PT 12.5 Seconds (9.8-13.1) 01/20/18 20:20 INR 1.1 (0.9-1.2) 01/20/18 20:20 APTT 38.3 Seconds (25.6-37.1) H 01/20/18 20:20 Sodium 142 mmol/l (132-148) 01/20/18 20:20 Potassium 3.5 MMOL/L (3.6-5.0) L 01/20/18 20:20 Chloride 94 mmol/L (98-107) L 01/20/18 20:20 Carbon Dioxide 37 mmol/L (22-30) H 01/20/18 20:20 Anion Gap 15 (10-20) 01/20/18 20:20 BUN 15 mg/dl (9-20) 01/20/18 20:20 Creatinine 0.8 mg/dl (0.8-1.5) 01/20/18 20:20 Est GFR ( Amer) > 60 01/20/18 20:20 Est GFR (Non-Af Amer) > 60 01/20/18 20:20 POC Glucose (mg/dL) 131 mg/dL (65-110) H 01/22/18 16:24 Random Glucose 137 mg/dL (75-110) H 01/20/18 20:20 Calcium 9.4 mg/dL (8.4-10.2) 01/20/18 20:20 Total Bilirubin 0.7 mg/dl (0.2-1.3) 01/20/18 20:20 AST 44 U/L (17-59) 01/20/18 20:20 ALT 51 U/L (21-72) 01/20/18 20:20 Alkaline Phosphatase 95 U/L (38-126) 01/20/18 20:20 Troponin I < 0.0120 ng/mL (0.00-0.120) 01/20/18 20:20 Total Protein 8.1 G/DL (6.3-8.2) 01/20/18 20:20 Albumin 4.1 g/dL (3.5-5.0) 01/20/18 20:20 Globulin 3.9 gm/dL (2.2-3.9) 01/20/18 20:20 Albumin/Globulin Ratio 1.0 (1.0-2.1) 01/20/18 20:20 - Hospital Course Hospital Course: 67 y/o male with PMHx significant for Cervical disc degenerative disease s/p recent C4C5C6 discectomy with fusion placed under observation in Telemetry for accelerated hypertension. Patient has PMH , CAD/Stents, DM2, poorly controlled HTN, prior treatment for prostate cancer,anxiety and cervical disk degenerative disease s/p recent C4C5C6 discectomy with fusion 01/15. He was evaluated at [facility] for worsening RUE weakness and b/l UE paresthesias as well as gait imbalance. A Cervical MRI on 01/09 showed severe spinal stenosis and b/l foraminal stenosis. Patient underwent surgical decompression/diskectomy with fusion of C4-5-6. Symptoms improved, and he was sent to Acute rehab here in [place]. In rehab, patient was noted to be feeling anxious and c/o L shoulder pain with BP ranging between 220-180 systolic and 101-110 dyistolic and feeling dizzy. He was transferred to telemetry for close monitoring and treatment. 1. 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 Pt had Echo done in [place] : EF 55-60%, normal wall motion Pt denies CP, no SOB, no palpitation, no dizziness nor MURRELL Cardiology consulted- Dr Bhatt - discussed case, he modified antihypertensive regimen continue Clonidine, Hydralazine , Lasix , Losartan d/c Metoprolol and add Labetalol added Norvasc 5 mg bid will transfer pt back to Acute Rehab today - Cardio and Hospitalist team will continue to ff up pt in Rehab Monitor BP and HR closely 2. 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 CAD s/p PTCA Continue Lipitor , ASA Heart Healthy Diet 6. Chronic NIDDM2, controlled, A1C 6.5 on Metformin SSI-Low and Accuchecks ACHS Moderate Carbohydrate Consistency Diet 7. History of Chronic lower back pack Continue gabapentin, pain management 8. Anxiety Psych consulted - rec starting Zoloft or Cymbalta- discussed with pt - refused to start any med for now d/c Xanax 9. Hx Prostate Cancer with Urinary Retention 10. Constipation continue home amitiza Colace 11.GI/ DVT Prophylaxis Protonix,lovenox Discharge Exam - Head Exam Head Exam: ATRAUMATIC, NORMAL INSPECTION, NORMOCEPHALIC - Eye Exam Eye Exam: EOMI, Normal appearance Pupil Exam: NORMAL ACCOMODATION - ENT Exam ENT Exam: Mucous Membranes Moist, Normal External Ear Exam - Neck Exam Neck exam: Full Rom Additional comments: anterior surgical wound with dressing, Cervical Collar - Respiratory Exam Respiratory Exam: NORMAL BREATHING PATTERN. absent: Rales, Wheezes, Respiratory Distress - Cardiovascular Exam Cardiovascular Exam: REGULAR RHYTHM, +S1, +S2 - GI/Abdominal Exam GI & Abdominal Exam: Normal Bowel Sounds, Soft. absent: Tenderness - Extremities Exam Extremities exam: full ROM, normal capillary refill, pedal pulses present - Back Exam Back exam: absent: CVA tenderness (L), CVA tenderness (R), vertebral tenderness - Neurological Exam Neurological exam: Alert, CN II-XII Intact, Oriented x3 Additional comments: MMT 4-12/26 - Psychiatric Exam Psychiatric exam: Normal Affect, Normal Mood - Skin Skin Exam: Dry, Normal Color, Warm Discharge Plan - Follow Up Plan Condition: IMPROVED Disposition: REHAB FACILITY/REHAB UNIT Additional Instructions: d/c to Acute Rehab monitor BP and HR
== END 2018-01-22 19:29 ==
LOC: H.ER 18:48 → H.ERHOLD 20:46 → H.TEL 01-21 00:30
PROVIDERS: ADMIT Internal Medicine; ATTEND Internal Medicine
DX: I16.0 Hypertensive urgency (principal); I25.10 Atherosclerotic heart disease of native coronary artery without angina pectoris; J44.9 Chronic obstructive pulmonary disease, unspecified; K59.00 Constipation, unspecified; M48.02 Spinal stenosis, cervical region; M54.12 Radiculopathy, cervical region; Z79.84 Long term (current) use of oral hypoglycemic drugs; Z79.899 Other long term (current) drug therapy; Z85.46 Personal history of malignant neoplasm of prostate; Z86.73 Personal history of transient ischemic attack (TIA), and cerebral infarction without residual deficits; Z87.01 Personal history of pneumonia (recurrent); Z87.891 Personal history of nicotine dependence; Z95.5 Presence of coronary angioplasty implant and graft; Z98.1 Arthrodesis status; F12.90 Cannabis use, unspecified, uncomplicated; G89.29 Other chronic pain; E78.5 Hyperlipidemia, unspecified; M19.90 Unspecified osteoarthritis, unspecified site; M50.30 Other cervical disc degeneration, unspecified cervical region; R27.0 Ataxia, unspecified; E11.9 Type 2 diabetes mellitus without complications; E87.6 Hypokalemia; F41.1 Generalized anxiety disorder; F43.23 Adjustment disorder with mixed anxiety and depressed mood; I10 Essential (primary) hypertension
CPT/HCPCS: 80053; 82948; 84484; 85025; 85610; 85730; 93005; 94640; 97116; 97162; 97530; 99285; G0378; G8978; G8979; J1170; J1650